=== PATIENT | male | born 1970 | race Caucasian/White ===

== ENCOUNTER 2017-04-19 13:56 | Inpatient (IN) | payer OTHER ==
[~2017-04-19] VITALS: Ht 170.2 cm; Wt 104.0 kg
--- NOTE | 2017-04-19 15:26 | ED GENERAL ADULT ---
History of Present Illness General Chief Complaint: Upper Respiratory Sx/Fever Stated Complaint: COUGH WITH SPUTUM X3 WEEKS Source: patient Exam Limitations: no limitations Vital Signs & Intake/Output Vital Signs & Intake/Output Vital Signs Date Time Temp Pulse Resp B/P B/P Pulse O2 O2 Flow FiO2 Mean Ox Delivery Rate 04/19 1750 97.2 111 32 143/61 99 Room Air 04/19 1653 98.1 113 18 158/79 100 04/19 1543 98 04/19 1419 97.4 104 20 119/72 100 Room Air Room Air Allergies Coded Allergies: Penicillins (Intermediate, FACIAL SWELLING 04/19/17) Reconcile Medications Amlodipine Besylate 10 MG TABLET 1 TAB PO DAILY BP (Reported) Hydrochlorothiazide 25 MG TABLET 1 TAB PO DAILY BP (Reported) Lisinopril 20 MG TABLET 1 TAB PO DAILY BP (Reported) Metformin HCl 1,000 MG TABLET 1 TAB PO BID DM (Reported) Pantoprazole Sodium 40 MG TABLET.DR 1 TAB PO DAILY GI (Reported) Rosuvastatin Calcium (Crestor) 10 MG TABLET 1 TAB PO DAILY CHOLESTEROL ( Reported) Triage Note: PT TO ED S/P "HAD STOMACH BUG ALL WEEK, NOT EATING OR DRINKING, FEELS LIGHTHEADED, SOB". Triage Nurses Notes Reviewed? yes Onset: Abrupt Duration: week(s): (3), constant, continues in ED Timing: recent history Injury Environment: home No Modifying Factors: none HPI: 46-year-old male comes into emergency room for further evaluation of cough with yellow mucous and blood tinge mucous production. Patient has been coughing for 3 weeks. Getting progressively worse. Patient has been feeling lightheaded and dizzy and had a near-syncopal spell the other day. Denies any complete loss of consciousness. No chest pain. Some associated shortness of breath. No vomiting. Patient was started on lisinopril couple weeks ago but the symptoms going on prior to that. Patient saw his primary care doctor. He had an EKG done which showed that he had an irregular beat and was referred to a honing machine set up operator to follow-up. He also is due to see a windmill mechanic at the end of this month coming up. Denies any other associated symptoms. Denies any pain. (JEAN-CLAUDE LOW) Past History Travel History Traveled to [place] past 21 day No Medical History Any Pertinent Medical History? see below for history Neurological: NONE EENT: NONE Cardiovascular: hypertension, hyperlipidemia Respiratory: NONE Gastrointestinal: NONE Hepatic: NONE Renal: NONE Musculoskeletal: NONE Psychiatric: insomnia Endocrine: diabetes Blood Disorders: anemia Cancer(s): NONE NUTRITION SERVICES ASSISTANT/Reproductive: NONE Surgical History Surgical History: non-contributory Psychosocial History Tobacco Use: Never used ETOH Use: heavy use Illicit Drug Use: denies illicit drug use Family History Hx Contributory? No (JEAN-CLAUDE LOW) Review of Systems Review of Systems Constitutional: Reports: no symptoms. EENTM: Reports: no symptoms. Respiratory: Reports: see HPI. Cardiovascular: Reports: see HPI. GI: Reports: no symptoms. Genitourinary: Reports: no symptoms. Musculoskeletal: Reports: no symptoms. Skin: Reports: no symptoms. Neurological/Psychological: Reports: no symptoms. Hematologic/Endocrine: Reports: see HPI. Immunologic/Allergic: Reports: no symptoms. All Other Systems: Reviewed and Negative (JEAN-CLAUDE LOW) Physical Exam Physical Exam General Appearance: well developed/nourished, alert, awake, coughing Head: atraumatic Eyes: Bilateral: normal appearance. Ears, Nose, Throat: normal ENT inspection, hearing grossly normal Neck: normal inspection Respiratory: normal breath sounds, no respiratory distress Cardiovascular: regular rate/rhythm Back: normal range of motion Extremities: normal capillary refill, normal range of motion, no edema Neurologic/Psych: awake, alert, oriented x 3, normal gait Skin: intact, normal color Core Measures ACS in differential dx? No CVA/TIA Diagnosis: No Severe Sepsis Present: No Septic Shock Present: No (JEAN-CLAUDE LOW) Progress Differential Diagnoses I considered the following diagnoses in my evaluation of the patient: RHONDA inhibitor induced cough, bronchitis, pneumonia, pulmonary embolism, COPD, WI, sepsis, medication induced renal failure, obstructive uropathy, Plan of Care: Orders Procedure Date/time Status LACTIC ACID 04/19 1956 Active Irving, Insertion/Removal/Asses 04/19 1744 Active CULTURE,URINE 04/19 1739 Active URINALYSIS 04/19 1739 Complete Add-on Test (ER Only) 04/19 1717 Active Patient Data 04/19 1713 Active LACTIC ACID 04/19 1656 Complete Add-on Test (ER Only) 04/19 1642 Active BLOOD CULTURE 04/19 1642 Active Admit to inpatient 04/19 1638 Active ARTERIAL BLOOD GAS (GEN) 04/19 1632 Active Telemetry/Water Jet Loom Fixer 04/19 1631 Active PHOSPHORUS 04/19 1540 Complete CREATINE PHOSPHOKINASE 04/19 1540 Complete TROPONIN LEVEL 04/19 1526 Complete D-DIMER 04/19 1526 Complete COMPREHENSIVE METABOLIC PANEL 04/19 1526 Complete CBC WITHOUT DIFFERENTIAL 04/19 1526 Complete EKG 04/19 1526 Active Laboratory Tests 04/19/17 1740: Urine Color YEL, Urine Clarity HAZY H, Urine pH 6.0, Ur Specific [place]hel 1.020, Urine Protein >=300 H, Urine Ketones NEG, Urine Nitrite NEG, Urine Bilirubin NEG, Urine Urobilinogen 0.2, Ur Leukocyte Esterase NEG, Ur Microscopic SEDIMENT EXAMINED, Urine RBC 3-5, Urine WBC 3-5 H, Ur Epithelial Cells RENAL H, Granular Casts MANY H, Urine Hemoglobin LARGE H, Urine Glucose 100 H 04/19/17 1655: Lactic Acid 7.8 H 04/19/17 1640: pH 7.29 *L, pCO2 14 L, pO2 131 H, HCO3 7 L, ABG O2 Sat (Measured) 97.0, P-50 (Temp Corrected) N, Carboxyhemoglobin 0.4 L, O2 Concentration % R/A, Temperature 97.4, Phlebotomy Draw Site RIGHT RADIAL 04/19/17 1540: Anion Gap 34 H, Estimated GFR 4 L, BUN/Creatinine Ratio 6.1 L, Glucose 133 H , Calcium 6.7 L, Phosphorus 10.8 H, Total Bilirubin 1.3, AST 40, ALT 31, Alkaline Phosphatase 75, Creatine Kinase 590 H, Troponin I 0.10, Total Protein 7.6, Albumin 4.7, Globulin 2.9, Albumin/Globulin Ratio 1.6, D-Dimer High Sensitivty 223, CBC w Diff NO MAN DIFF REQ, RBC 4.86, MCV 68.3 L, MCH 22.0 L, RDW 14.5, MPV 7.4, Gran % 88.3 H, Lymphocytes % 6.0 L, Monocytes % 5.4, Eosinophils % 0.1, Basophils % 0.2, Absolute Granulocytes 14.0 H, Absolute Lymphocytes 0.9 L, Absolute Monocytes 0.8 H, Absolute Eosinophils 0, Absolute Basophils 0, PUBS MCHC 32.2 L Microbiology 04/19 174 URINE ROUT: Urine Culture - RECD 04/19 164 BLOOD: Blood Culture - RECD 04/19 164 BLOOD: Blood Culture - ORD Diagnostic Imaging: Viewed by Me: Radiology Read. Discussed w/RAD: Radiology Read. Radiology Impression: PATIENT: TITA SWEENEY PRESENT AGE: 46 PATIENT ACCOUNT NO: [id number] : 71 LOCATION: [facility] ORDERING PHYSICIAN: JEAN-CLAUDE MARTINEZ SERVICE DATE: 04/19/17 EXAM TYPE: RAD - XRY-CHEST XRAY, PA AND LATERAL EXAMINATION: XR CHEST CLINICAL INFORMATION: Cough , shortness of breath. COMPARISON: None TECHNIQUE: PA and lateral views (3 images) of the chest are obtained. FINDINGS: No significant abnormality is noted involving the heart, lungs, mediastinum, bony thorax or soft tissues. IMPRESSION : No acute cardiopulmonary process. DICTATED BY: JAMES HERNADEZ MD DATE/TIME DICTATED:04/19/171544 KEYSEATER OPERATOR:BRITTANI DATE/TIME TRANSCRIBED:1544 CONFIDENTIAL, DO NOT COPY WITHOUT APPROPRIATE AUTHORIZATION. < Electronically signed in Other Vendor System> SIGNED BY: JAMES HERNADEZ MD 04/19/17 1550 Initial ED EKG: normal intervals, normal p-waves, normal sinus rhythm, rate (104 ), nonspecific ST T wave chg Prior EKG: unchanged (JEAN-CLAUDE LOW) Departure Departure Disposition: STILL A PATIENT Condition: Stable Clinical Impression Primary Impression: Hyponatremia Secondary Impressions: Acute renal failure, Hyperkalemia Referrals: [facility] (PCP/Family) Departure Forms: Customer Survey General Discharge Information Admission Note Spoke With: DARBY VAIL MD Documentation of Exam: Documentation of any treatments & extenuating circumstances including Concerns Regarding Discharge (functional status, medication knowledge or non-compliance, living conditions, etc.) that warrant an admission rather than observation: Patient will require cardiac telemetry. IV fluids. Repeat blood work. Critical care. Renal consultation. High risk. Slow correction of sodium to avoid seizure. (JEAN-CLAUDE LOW) PA/TRAFFIC CHECKER Co-Sign Statement Statement: ED Attending supervision documentation- x I saw and evaluated the patient. I have also reviewed all the pertinent lab results and diagnostic results. I agree with the findings and the plan of care as documented in the PA's/TRAFFIC CHECKER's documentation. [] I have reviewed the ED Record and agree with the PA's/TRAFFIC CHECKER's documentation. [] Additions or exceptions (if any) to the PAs/TRAFFIC CHECKER's note and plan are summarized below: [] (AL LORENZANA,RK) Critical Care Note Critical Care Note Critical Care Time: 30-74 min (45) (SUNITA MARTINEZ,JEAN-CLAUDE)
[2017-04-19] MEDS ORDERED: METFORMIN HCL1000 M1 PO (15:42)
[2017-04-19] MEDS ORDERED: LISINOPRIL20 M1 PO (15:43)
[2017-04-19] MEDS ORDERED: HYDROCHLOROTHIA25 M1 PO (15:43)
[2017-04-19] MEDS ORDERED: CRESTOR10 M1 PO (15:43)
[2017-04-19] MEDS ORDERED: PANTOPRAZOLE SO40 M1 PO (15:43)
[2017-04-19] MEDS ORDERED: AMLODIPINE BESY10 M1 PO (15:43)
--- NOTE | 2017-04-19 15:50 | RADIOLOGY REPORT ---
EXAMINATION: XR CHEST CLINICAL INFORMATION: Cough, shortness of breath. COMPARISON: None TECHNIQUE: PA and lateral views (3 images) of the chest are obtained. FINDINGS: No significant abnormality is noted involving the heart, lungs, mediastinum, bony thorax or soft tissues. IMPRESSION: No acute cardiopulmonary process.
[2017-04-19 15:53] LABS: ABSOLUTE BASOPHIL COUNT 0 /CUMM (0.0-0.2); ABSOLUTE EOSINOPHIL COUNT 0 /CUMM (0.0-0.7); ABSOLUTE LYMPH COUNT 0.9 /CUMM (1.2-3.4); ABSOLUTE MONOCYTE COUNT 0.8 /CUMM (0.10-0.60); BASOPHIL % 0.2 % (0.0-2.0); EOSINOPHIL % 0.1 % (0-5); HEMATOCRIT 33.2 % (42-52); MEAN CORPUSCULAR HGB CONC 32.2 G/DL (33.0-37.0); MEAN CORPUSCULAR VOLUME 68.3 FL (80.0-94.0); MEAN PLATELET VOLUME 7.4 FL (7.4-10.4); PLATELET COUNT 255 /CUMM (130-400); RBC DISTRIBUTION WIDTH 14.5 % (11.5-14.5); RED BLOOD CELL CT 4.86 /CUMM (4.70-6.10); WHITE BLOOD CELL COUNT 15.8 /CUMM (4.8-10.8)
[2017-04-19 16:26] LABS: GRANULOCYTE % 88.3 % (42.2-75.2)
--- NOTE | 2017-04-19 18:17 | CT SCAN REPORT ---
EXAMINATION: CT ABDOMEN AND PELVIS WITHOUT CONTRAST CLINICAL INFORMATION: Acute renal failure. Evaluate for obstructive uropathy. COMPARISON: None TECHNIQUE: Multidetector volumetric imaging was performed from the superior aspect of the liver through the pubic symphysis. Sagittal and coronal reformatted images were obtained on the technologist's workstation. DLP: 1012.32 mGy-cm FINDINGS: LUNG BASES: The lung bases are clear. There are coronary artery calcifications noted. LIVER, GALLBLADDER, AND BILIARY TREE: The liver is normal in size, shape, and attenuation. No focal hepatic lesion or biliary ductal dilatation is present. The gallbladder is minimally distended and is unremarkable. PANCREAS: Unremarkable. SPLEEN: Unremarkable. ADRENAL GLANDS: Unremarkable. KIDNEYS AND URETERS: There is mild bilateral perinephric stranding. The kidneys are otherwise unremarkable. There is no hydronephrosis. There are no renal or ureteral calculi. BLADDER: The bladder is decompressed by Irving catheter. GASTROINTESTINAL TRACT: The small and large bowel are unremarkable. The appendix is unremarkable. ABDOMINAL WALL: No significant hernia is appreciated. LYMPH NODES: Normal. VASCULAR: There are scattered atherosclerotic calcifications. No aneurysm is identified. PELVIC VISCERA: Unremarkable. OSSEOUS STRUCTURES: Unremarkable. IMPRESSION: 1. No evidence of obstructive uropathy. 2. Otherwise, no acute abnormalities in the abdomen or pelvis.
--- NOTE | 2017-04-19 18:27 | History & Physical ---
ABDI LEON MD 04/19/17 1827: General Information and HPI History of Present Illness: 46 year old man with past medical history of hypertension, hyperlipidemia, non- insulin dependent diabetes mellitus, and EtOH abuse/dependence seen for evaluation of a productive cough for the past three weeks. Patient reports that for the past 8-9 months he has had intermittent yellow sputum production with occasional cough for unclear reasons. Patient was on Lisinopril for hypertension "a couple weeks ago" for which he cough has become more frequent. He reports vague symptoms of loss of appetite with decreased oral intake, lightheadedness/dizziness, heart palpitations, shortness of breath, and 10+ episodes of loose nonbloody, watery diarrhea daily since this past tuesday. Otherwise he denies any fever, chills, headache, chest pain, vomiting. Patient reports a history of alcohol abuse for which he was previously admitted to [facility] and treated with ativan without requiring ICU admission, ativan drip, or intubation. He reports drinking 6-7 vodka mixed drinks daily or a similar number of beers. His last drink was reported the tuesday prior to admission. He denies smoking or recreational/intravenous drug use. 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 Allergies/Medications Allergies: Coded Allergies: Penicillins (Intermediate, FACIAL SWELLING 04/19/17) Home Med list Amlodipine Besylate 10 MG TABLET 1 TAB PO DAILY BP (Reported) Hydrochlorothiazide 25 MG TABLET 1 TAB PO DAILY BP (Reported) Lisinopril 20 MG TABLET 1 TAB PO DAILY BP (Reported) Metformin HCl 1,000 MG TABLET 1 TAB PO BID DM (Reported) Pantoprazole Sodium 40 MG TABLET.DR 1 TAB PO DAILY GI (Reported) Rosuvastatin Calcium (Crestor) 10 MG TABLET 1 TAB PO DAILY CHOLESTEROL ( Reported) Past History Travel History Traveled to [place] past 21 day No Medical History Neurological: NONE EENT: NONE Cardiovascular: hypertension, hyperlipidemia Respiratory: NONE Gastrointestinal: NONE Hepatic: NONE Renal: NONE Musculoskeletal: NONE Psychiatric: insomnia Endocrine: diabetes Blood Disorders: anemia Cancer(s): NONE ON SITE SERVICES SPECIALIST/Reproductive: NONE Surgical History Surgical History: non-contributory Past Family/Social History Psychosocial History Where do you live? Home Who Do You Live With? parent Services at Home: None Primary Language: Tamazight Smoking Status: Former Smoker ETOH Use: heavy use Illicit Drug Use: denies illicit drug use Review of Systems Review of Systems Constitutional: Reports: see HPI. Exam & Diagnostic Data Last 24 Hrs of Vital Signs/I&O Vital Signs Date Time Temp Pulse Resp B/P B/P Pulse O2 O2 Flow FiO2 Mean Ox Delivery Rate 04/19 1940 97.2 103 26 142/62 04/19 1925 107 26 142/62 100 Room Air 04/19 1839 97.2 110 24 131/61 04/19 1839 110 20 131/61 100 Room Air 04/19 1750 97.2 111 32 143/61 99 Room Air 04/19 1653 98.1 113 18 158/79 100 04/19 1543 98 04/19 1419 97.4 104 20 119/72 100 Room Air Room Air Intake & Output 04/19 1600 04/19 0800 04/19 0000 Intake Total Output Total Balance Patient 104.326 kg Weight Weight Reported by Patient Measurement Method Physical Exam General Appearance Alert, Oriented X3, Cooperative, No Acute Distress Skin No Rashes, No Breakdown, No Significant Lesion Skin Temp/Moisture Exam: Warm/Dry Sepsis Skin Exam (color): Normal for Ethnicity HEENT Atraumatic, EOMI, Mucous Membr. moist/pink Neck Supple, No JVD Cardiovascular Regular Rate, Normal S1, Normal S2, No Murmurs Lungs Clear to Auscultation, Normal Air Movement Abdomen Normal Bowel Sounds, Soft, No Tenderness, No Hepatospenomegaly, No Masses, Obese, mildly distended Neurological Normal Speech, Normal Tone, Cranial Nerves 3-12 NL Extremities No Clubbing, No Cyanosis, Normal Pulses, Trace pedal edema Vascular Normal Pulses, Pulses Symmetrical Last 24 Hrs of Labs/Ozzie: Laboratory Tests 04/19/17 1740: Urine Color YEL, Urine Clarity HAZY H, Urine pH 6.0, Ur Specific [place] 1.020, Urine Protein >=300 H, Urine Ketones NEG, Urine Nitrite NEG, Urine Bilirubin NEG, Urine Urobilinogen 0.2, Ur Leukocyte Esterase NEG, Ur Microscopic SEDIMENT EXAMINED, Urine RBC 3-5, Urine WBC 3-5 H, Ur Epithelial Cells RENAL H, Granular Casts MANY H, Urine Hemoglobin LARGE H, Urine Glucose 100 H 04/19/17 1655: Lactic Acid 7.8 H 04/19/17 1640: pH 7.29 *L, pCO2 14 L, pO2 131 H, HCO3 7 L, ABG O2 Sat (Measured) 97.0, P-50 (Temp Corrected) N, Carboxyhemoglobin 0.4 L, O2 Concentration % R/A, Temperature 97.4, Phlebotomy Draw Site RIGHT RADIAL 04/19/17 1540: Anion Gap 34 H, Estimated GFR 4 L, BUN/Creatinine Ratio 6.1 L, Glucose 133 H , Calcium 6.7 L, Phosphorus 10.8 H, Total Bilirubin 1.3, AST 40, ALT 31, Alkaline Phosphatase 75, Creatine Kinase 590 H, Troponin I 0.10, Total Protein 7.6, Albumin 4.7, Globulin 2.9, Albumin/Globulin Ratio 1.6, D-Dimer High Sensitivty 223, CBC w Diff NO MAN DIFF REQ, RBC 4.86, MCV 68.3 L, MCH 22.0 L, RDW 14.5, MPV 7.4, Gran % 88.3 H, Lymphocytes % 6.0 L, Monocytes % 5.4, Eosinophils % 0.1, Basophils % 0.2, Absolute Granulocytes 14.0 H, Absolute Lymphocytes 0.9 L, Absolute Monocytes 0.8 H, Absolute Eosinophils 0, Absolute Basophils 0, PUBS MCHC 32.2 L Microbiology 04/19 174 URINE ROUT: Urine Culture - RECD 04/19 1644 BLOOD: Blood Culture - RECD 04/19 1642 BLOOD: Blood Culture - ORD Diagnostic Data EKG Results Sinus Tachycardia HR 104 GA 144 QTc 448 TWave investion inferior leads, V3-V6 ST-segment depression V3-V5 CXR Results IMPRESSION: No acute cardiopulmonary process. Other Results SERVICE DATE: 04/19/17-1643 EXAM TYPE: CAT - CT ABD & PELVIS W/O IV CONTRAS IMPRESSION: 1. No evidence of obstructive uropathy. 2. Otherwise, no acute abnormalities in the abdomen or pelvis. Assessment/Plan Assessment: 46 year old man with multiple medical problems significant for EtOH abuse and Hypertension recently started on lisinopril seen for evaluation of productive cough. #Acute Kidney Injury #Anion gap metabolic acidosis #SIRS #Hyponatremia #Hyperkalemia #Hyperphosphatemia #Elevated Lactic Acid #Hypertension Patient with cough, sputum production and new lightheadedness/dizziness, shortness of breath, palpitations, and nausea with decreased oral intake since prior to admission. Vital signs upon initial evaluation were significant tachycardia. Physical examination remarkable for an obese middle aged man appearing mildly tremoulous with an otherwise normal cardio/ pulmonary/abdomenal/neuro exam. Significant labs were Na 116, K 5.5, Cl 73, HCO3 9, BUN/Cr 83/13.6, Glu 133, AG 34, WBC 15.8, Hgb/Hct 10.7/33.2, Plt 255, Lactic acid 7.8, Ca/Albumin 6.7/4.7, PO 10.8, LFTs WNL, ABG: pH 7.29, CO2 14, O2 131, HCO3 7. CXR and CT A/P were within normal limits, EKG demonstrated sinus tachycardia with T-wave inversions in inferior/precordial leads and ST-segement depression of distal precordial leads. Patient clinincally seems to have acute renal failure and its associated metabolic sequelae secondary to lisinopril and decreased oral intake resulting in prerenal azotemia. Patient is admitted to the ICU for further evaluation. Case discussed with industrial aerial installer Dr. Hale, whom felt that patient did not require any urgent hemodialysis or placement of a dialysis catheter. -ICU -Irving Catheter -Strict I&Os -Trend lactic acid until normal -Trend troponin/EKG until peak or three negative seits -Hold Lisinopril, HCTZ -Continue amlodipine -Nephrology consult #EtOH Abuse/Dependence Patient with history of previous hospitalization for EtOH related disease in [place] reportedly not requiring an ativan drip, intubation, or ICU admission. -CIWA -Ativan per CIWA -Ativan 2mg PO Q6H -Multivitamin/Thiamine/Folate -SW/Nutrition consults -Obtain records from [facility] for baseline labs #Hyperlipidemia-Crestor 10mg PO Daily HELD #Non-insulin dependent diabetes mellitus -Accuchecks with Novolog SSI TIDAC/HS -Hold oral hypoglycemics Pain Plan-Acetaminophen/Percocet/Morphine Diet-Diabetic diet with 2g K & 1g Phos restriction DVT PPx-ALPS/subcutaneous heparin Code Status-FULL CODE As Ranked By This Provider Problem List: 1. Acute renal failure 2. Hyperkalemia 3. Hyponatremia Core Measures/Miscellaneous Acute Coronary Syndrome ACS Diagnosis: No Cerebrovascular Accident CVA/TIA Diagnosis: No Congestive Heart Failure CHF Diagnosis: No VTE (View Protocol) VTE Risk Factors: Acute medical illness, Age > 40 No [facility] VTE prophylaxis d/t: No contraindications No VTE Pharm Prophylaxis d/t: No contraindications VTE Diagnosis: No VTE Type: NONE VTE Confirmed by (Test): NONE Sepsis (View Protocol) Severe Sepsis Present: No Septic Shock Septic Shock Present: No Miscellaneous Documentation Attending Case Discussed With: DARBY VAIL MD Primary Care Physician: RAFIQ PARKER Patient sees these Specialists Dr. Andrade Level of Patient Care: Critical Care (CRI) Consults Needed: Consulting Specialty: Nephrology DARBY VAIL MD 04/19/17 2155: Attending MD Review Statement Attending Statement Attending Statement: examined this patient, discuss w/resident/PA/FISHERIES MANAGEMENT BIOLOGIST, agreed w/resident/PA/FISHERIES MANAGEMENT BIOLOGIST, discussed with family, reviewed EMR data (avail), reviewed images, amended to note Attending Assessment/Plan: The patient is a 46 yo male with h/o HTN, HL, DM2 and EtOH abuse who presented the ED with c/of a cough productive of yellowish sputum and some blood x several months that has been worse over last several weeks. He previously resided in [place] and had been admitted to [facility] several weeks ago. He describes being given a lot of Ativan and sedation and was not clear why. 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 States he has drank less since discharge. He has moved in with his mother in [place] and 2 weeks ago saw Whitney Parker APRN at [facility]. Upon discharge from [facility] he had been placed on Amlodipine and restarted on Metformin (he previously took and had stopped due to lack of insurance). Ms. Parker began him on Lisinopril & HCTZ. She had also referred him to GI (Dr. Andrade group) to evaluate for reflux symptoms and some blood in sputum. Also sending to see a highway maintainer due to "irregular" heart on EKG. He also described diarrhea over last 2 weeks with 10+ episodes each day along with decreased appetite. He denied any fever, chest pain, dyspnea, chills, abdominal pain, dysuria, blood per rectum. In the ED was found to be severely hyponatremic with SOHAIL and + lactate. Physical Exam: VS: T 97.4, P 104, R 20, BP 119/72, PO 100% RA HEENT: eyes- PERRLA, EOMI joseph- moist mucosa (post 2 L NS in ED) Neck: no JVD or adenopathy Chest: clear Cor: tachy, reg, nl S1, S2 w/o murm Abd: BS+, soft, distended, ?liver edge sl firm, +/- spleen Ext: tr edema,pulses 2+ Neuro: alert & oriented x 3, non-focal Labs/Tests- as above Impression/Plan: #Hyponatremia- patient presents with Na 116. Is mentating w/o confusion (as per his mother). Has h/o significant EtOH intake, poor po intake of food, has been on diuretic (HCTZ) and had recent diarrhea (resolved per patient). Most likely multifactorial. Plan: Admit to ICU. Repeat BEP in 4 hours (he received 2 L NS in ED) - follow Na level closely Check urine lytes Nephrology consult #SOHAIL- patient presents with BUN/Cr 83/13.6. Denies h/o being told he had renal dysfunction at time of recent hospital stay in [place]. May be related to multiple factors- volume depletion secondary to diuretic/diarrhea/poor po intake along with beginning Lisinopril 2 weeks ago. No h/o known vascular disease to suggest DIANA, although c/o lightheadedness when begun on Lisinopril. Does have elevated CK- ? resolving rhabdomyolysis. Plan: Nephrology consult as above. Follow-up BEP post hydration. Follow-up CK. Non-contrast CT abd/pel (done- no evidence of obstruction). Irving for I/O's. #Hyperkalemia- mild with K 5.5. C/W renal failure. Plan: Renal diet and follow. Stop RHONDA inhibitor. #Lactic Acidosis- No clinical evidence of sepsis. ? on Metformin. Plan: Hold Metformin. Follow-up lactate level with hydration. #Abnormal EKG- with T changes. Was being referred to Cardiology by OP clinician. No chest pain or dyspnea noted. Plan: Will follow-up EKG. Obtain ECHO in morning. #Anemia- was told about this last hospital stay and informed he may have Thalassemia. May also be contribution from renal failure. Plan: Obtain recent records from [facility]. #Leukocytosis with Left Shift- no clinical focal infection. Plan: Check cultures & follow up WBC. #DM2- has been on Metformin which may contribute to acidosis. Plan: Check glucoscans and use insulin sliding scale. Hold Metformin. #Elevated CK- does not give h/o recent lying on floor, however may represent rhabdomyolysis. Plan: Follow-up CK with hydration. #EtOH Dependence/Abuse- recent detox at [facility] describing "5 days of getting Ativan and being sedated". Does not appear to have great incite into his condition. Plan: Ativan/CIWA protocol- thiamine, MVI, folate as per protocol. Social Service consult. Watch for DT's. Records from [facility]. #HTN- as above, was recently started on Amlodipine at [facility] and Lisinopril/HCTZ was added 2 weeks ago by Ms. Parker. Plan: Hold HCTZ & Lisinopril. Continue Amlodipine.
[2017-04-19 18:39] VITALS: BP 131/61
[2017-04-19 19:40] VITALS: BP 142/62
[2017-04-19 20:30] VITALS: BP 153/68
[2017-04-19 20:55] LABS: ABSOLUTE BASOPHIL COUNT 0.1 /CUMM (0.0-0.2); ABSOLUTE EOSINOPHIL COUNT 0 /CUMM (0.0-0.7); ABSOLUTE GRANULOCYTE CT 13.4 /CUMM (1.4-6.5); ABSOLUTE LYMPH COUNT 0.9 /CUMM (1.2-3.4); ABSOLUTE MONOCYTE COUNT 0.6 /CUMM (0.10-0.60); BASOPHIL % 0.4 % (0.0-2.0); EOSINOPHIL % 0.1 % (0-5); HEMATOCRIT 29.3 % (42-52); MEAN CORPUSCULAR HGB 22.2 PG (27.0-31.0); MEAN CORPUSCULAR HGB CONC 32.6 G/DL (33.0-37.0); MEAN CORPUSCULAR VOLUME 68.3 FL (80.0-94.0); MEAN PLATELET VOLUME 7.1 FL (7.4-10.4); PLATELET COUNT 212 /CUMM (130-400); RBC DISTRIBUTION WIDTH 15.3 % (11.5-14.5); RED BLOOD CELL CT 4.29 /CUMM (4.70-6.10); WHITE BLOOD CELL COUNT 14.9 /CUMM (4.8-10.8)
[2017-04-19 21:21] LABS: GRANULOCYTE % 89.6 % (42.2-75.2)
--- NOTE | 2017-04-19 21:54 | Admission Certification ---
Admission Certification Certification Statement - As attending physician, I certify that at the time of - admission, based on clinical presentation, severity of - symptoms, need for further diagnostic testing and - therapeutic interventions, and risk of adverse outcomes - without in-hospital treatment, in my clinical assessment, - this patient requires an acute hospital stay for a minimum - of two nights or longer. I have also considered psychsocial - factors such as support system, advanced age, financial - issues, cognitive issues, and failed out-patient treatments, - past re-admission history, safety of patient, and lack of - compliance as applicable. Specific rationale supporting this admission is: The patient presents in the ED with severe hyponatremia, SOHAIL, abnormal EKG, elevated CK, and h/o EtOH abuse. Needs ICU monitoring, IV fluids, nephrology consult, close monitoring of sodium, CIWA/Ativan detox protocol. ECHO cardiogram and possible cardiology consult.
[2017-04-19 22:00] VITALS: BP 122/78
[2017-04-20] VITALS (7 sets, daily range): BP systolic 132–160; BP diastolic 60–85
[2017-04-20 05:07] LABS: ABSOLUTE BASOPHIL COUNT 0 /CUMM (0.0-0.2); ABSOLUTE EOSINOPHIL COUNT 0 /CUMM (0.0-0.7); ABSOLUTE GRANULOCYTE CT 11.4 /CUMM (1.4-6.5); ABSOLUTE LYMPH COUNT 0.9 /CUMM (1.2-3.4); ABSOLUTE MONOCYTE COUNT 0.9 /CUMM (0.10-0.60); BASOPHIL % 0.1 % (0.0-2.0); EOSINOPHIL % 0 % (0-5); GRANULOCYTE % 86.2 % (42.2-75.2); HEMATOCRIT 27.9 % (42-52); MEAN CORPUSCULAR HGB 22.2 PG (27.0-31.0); MEAN CORPUSCULAR VOLUME 69.4 FL (80.0-94.0); MEAN PLATELET VOLUME 7.3 FL (7.4-10.4); PLATELET COUNT 164 /CUMM (130-400); RBC DISTRIBUTION WIDTH 14.2 % (11.5-14.5); RED BLOOD CELL CT 4.02 /CUMM (4.70-6.10); WHITE BLOOD CELL COUNT 13.2 /CUMM (4.8-10.8)
--- NOTE | 2017-04-20 09:07 | Cons- Nephrology ---
General Information and HPI Consulting Request Date of Consult: 04/20/17 Requested By: DARBY VAIL MD Reason for Consult: Severe renal failure & mult electrolyte disorders Source of Information: patient, family, old records Exam Limitations: no limitations History of Present Illness: 46 yr old WM w mult med problems including DM, HTN, EtOH abuse admit last night w several wks of increasing anorexia, vomiting, diarrhea & more recent hiccups. No baseline renal function for review & poor medical f/u but recently told kidney function abnormal. Found to have profound renal failure w BUN/Cr 84/13.7 w associated hyperkalemia, met acidosis, hyponatremia, hpocalcemia, hypomagnesemia, & hyperphosphatemia. Outpt med included ACEI, thiazide diuretic, & metformin. Denies NSAIDs or recent IV contrast. No documented hypotension. Has noted decreasing urine output over last several days & oliguric in hospital despite IV saline. Allergies/Medications Allergies: Coded Allergies: Penicillins (Intermediate, FACIAL SWELLING 04/19/17) Home Med List: Amlodipine Besylate 10 MG TABLET 1 TAB PO DAILY BP (Reported) Hydrochlorothiazide 25 MG TABLET 1 TAB PO DAILY BP (Reported) Lisinopril 20 MG TABLET 1 TAB PO DAILY BP (Reported) Metformin HCl 1,000 MG TABLET 1 TAB PO BID DM (Reported) Pantoprazole Sodium 40 MG TABLET.DR 1 TAB PO DAILY GI (Reported) Rosuvastatin Calcium (Crestor) 10 MG TABLET 1 TAB PO DAILY CHOLESTEROL ( Reported) Current Medications: Current Medications Sig/Edward Start time Last Medication Dose Route Stop Time Status Admin Acetaminophen 650 MG Q6P PRN 04/19 1915 AC PO Albuterol Sulfate 3 ML ONCE ONE 04/19 1530 DC 04/19 INH 04/19 1531 1543 Amlodipine Besylate 10 MG DAILY 04/20 1000 AC PO Calcium Gluconate 1 GM ONCE ONE 04/20 0230 DC 04/20 Sodium Chloride 100 ML IV 04/20 0329 0237 Calcium Gluconate 1 GM ONCE ONE 04/20 0030 DC 04/20 Sodium Chloride 100 ML IV 04/20 0129 0048 Folic Acid 1 MG DAILY 04/20 1000 AC PO Ipratropium [place] 2.5 ML ONCE ONE 04/19 1530 DC 04/19 INH 04/19 1531 1543 Lorazepam 0 .STK-MED ONE 04/19 1840 DC .ROUTE Lorazepam 0 .STK-MED ONE 04/19 1839 DC PO Lorazepam 0 Q1P PRN 04/19 1830 AC 04/19 IV 2225 Lorazepam 2 MG Q6 04/19 1828 AC 04/20 PO 0602 Magnesium Sulfate 1 GM Q2H 04/20 0230 DC 04/20 Dextrose/Water 100 ML IV 04/20 0629 0332 Morphine Sulfate 2 MG Q6P PRN 04/19 191 AC IV Multivitamins 1 TAB DAILY 04/20 1000 AC PO Ondansetron HCl 4 MG Q8P PRN 04/19 1915 AC IV Oxycodone/ 1 TAB Q6P PRN 04/19 191 AC Acetaminophen PO Sodium Chloride 1,000 ML BOLUS ONE 04/19 2130 DC 04/19 IV 04/19 2329 2137 Sodium Chloride 1,000 ML Q10H 04/19 2015 AC 04/20 IV 0602 Sodium Chloride 1,000 ML BOLUS ONE 04/19 1645 DC 04/19 IV 04/19 1744 1722 Sodium Chloride 1,000 ML BOLUS ONE 04/19 1645 DC 04/19 IV 04/19 1744 1635 Sodium Polystyrene 60 ML ONCE ONE 04/19 2245 DC 04/19 Sulfonate PO 04/19 2246 2252 Thiamine HCl 100 MG DAILY 04/20 1000 AC PO Review of Systems Review of Systems Constitutional: Reports: malaise, weakness. EENTM: Reports: no symptoms. Cardiovascular: Reports: chest pain. Respiratory: Reports: cough, short of breath. GI: Reports: diarrhea, vomiting. Genitourinary: Reports: frequency. Musculoskeletal: Reports: no symptoms. Skin: Reports: no symptoms. Neurological/Psychological: Reports: no symptoms. Hematologic/Endocrine: Reports: no symptoms. Immunologic/Allergic: Reports: no symptoms. All Other Systems: Reviewed and Negative Past History Travel History Traveled to [place] past 21 day No Medical History Blood Transfusion Hx: No Neurological: NONE EENT: NONE Cardiovascular: hypertension, hyperlipidemia Respiratory: NONE Gastrointestinal: NONE Hepatic: NONE Renal: NONE Musculoskeletal: NONE Psychiatric: NONE Endocrine: diabetes Blood Disorders: anemia Cancer(s): NONE BLUING OVEN TENDER/Reproductive: NONE Surgical History Surgical History: non-contributory Family History Relations & Conditions If Any: Relation not specified for: FH: diabetes mellitus FH: hypertension Psychosocial History Where Do You Live? Home Who Do You Live With? parent Services at Home: None Primary Language: Croatian Smoking Status: Former Smoker ETOH Use: heavy use Illicit Drug Use: denies illicit drug use Exam & Diagnostic Data Vital Signs and I&O Vital Signs Date Time Temp Pulse Resp B/P B/P Pulse O2 O2 Flow FiO2 Mean Ox Delivery Rate 04/20 0600 99.0 106 28 148/65 04/20 0400 98.9 107 31 134/68 04/20 0400 94 Room Air 04/20 0000 98.6 102 29 132/60 07 0000 97 Room Air 04/20 0000 98.6 102 29 132/60 97 Room Air 04/19 2200 97.8 105 22 122/78 04/19 2123 96.9 104 26 125/59 98 Room Air 04/19 2030 96.7 104 34 153/68 04/19 2030 96.7 104 34 153/68 97 Room Air 04/19 1940 97.2 103 26 142/62 04/19 1925 107 26 142/62 100 Room Air 04/19 1839 97.2 110 24 131/61 04/19 1839 110 20 131/61 100 Room Air 04/19 1750 97.2 111 32 143/61 99 Room Air 04/19 1653 98.1 113 18 158/79 100 04/19 1543 98 04/19 1419 97.4 104 20 119/72 100 Room Air Room Air Intake & Output 04/20 1600 04/20 0400 04/19 1600 04/19 0400 04/18 1600 04/18 0400 Intake Total 1327 600 Output Total 265 35 Balance 1062 565 Intake, IV 967 600 Intake, Oral 360 Number 4 1 Bowel Movements Output, Stool 250 Output, Urine 15 35 Patient 230 lb 230 lb Weight Weight Reported by Patient Reported by Patient Measurement Method Physical Exam General Appearance: well developed/nourished, anxious Head: atraumatic, normal appearance Eyes: Bilateral: normal appearance. Ears, Nose, Throat: normal ENT inspection Neck: normal inspection Respiratory: normal breath sounds, no respiratory distress, quiet respiration, lungs clear Cardiovascular: regular rate/rhythm, friction rub (none) Gastrointestinal: soft, non-tender, no organomegaly Extremities: no edema Neurologic/Psych: no motor/sensory deficits, awake, alert, abnormal POLICE CHIEF II-XII, no asterixis Skin: intact, normal color, warm/dry Lymphatic: no anterior cervical cecy, no axillary adenopathy Results Pertinent Lab Results: Laboratory Tests 04/20 04/20 04/20 0658 0446 0108 Chemistry Sodium (137 - 145 mmol/L) 118 *L 116 *L Potassium (3.5 - 5.1 mmol/L) 5.4 H 6.2 *H Chloride (98 - 107 mmol/L) 81 L 80 L Carbon Dioxide (22 - 30 mmol/L) 8 *L 8 *L Anion Gap (5 - 16) 29 H 28 H BUN (9 - 20 mg/dL) 83 H 84 H Creatinine (0.7 - 1.2 mg/dL) 13.6 *H 13.7 *H Estimated GFR (>60 ml/min) 4 L 4 L Glucose (65 - 99 mg/dL) 144 H 129 H Lactic Acid (0.7 - 2.1 mmol/L) 3.3 H 4.0 H 5.6 H Calcium (8.4 - 10.2 mg/dL) 5.8 *L 5.4 *L Phosphorus (2.5 - 4.5 mg/dL) 10.7 H 10.9 H Magnesium (1.6 - 2.3 mg/dL) 1.5 L 0.8 *L Total Bilirubin (0.2 - 1.3 mg/dL) 1.0 0.9 AST (17 - 59 U/L) 30 31 ALT (21 - 72 U/L) 30 33 Creatine Kinase (55 - 170 U/L) 559 H Troponin I (<0.11 ng/ml) 0.12 *H Albumin (3.5 - 5.0 g/dL) 3.4 L 3.7 Hematology CBC w Diff MAN DIFF ORDERED WBC (4.8 - 10.8 /CUMM) 13.2 H RBC (4.70 - 6.10 /CUMM) 4.02 L Hgb (14.0 - 18.0 G/DL) 8.9 L Hct (42 - 52 %) 27.9 L MCV (80.0 - 94.0 FL) 69.4 L MCH (27.0 - 31.0 PG) 22.2 L RDW (11.5 - 14.5 %) 14.2 Plt Count (130 - 400 /CUMM) 164 MPV (7.4 - 10.4 FL) 7.3 L Gran % (42.2 - 75.2 %) 86.2 H Lymphocytes % (20.5 - 51.1 %) 7.1 L Monocytes % (1.7 - 9.3 %) 6.6 Eosinophils % (0 - 5 %) 0 Basophils % (0.0 - 2.0 %) 0.1 Absolute Granulocytes (1.4 - 6.5 /CUMM) 11.4 H Segmented Neutrophils (42.2 - 75.2 %) 82 H Absolute Lymphocytes (1.2 - 3.4 /CUMM) 0.9 L Lymphocytes (20.5 - 51.1 %) 14 L Monocytes (1.7 - 9.3 %) 4 Absolute Monocytes (0.10 - 0.60 /CUMM) 0.9 H Absolute Eosinophils (0.0 - 0.7 /CUMM) 0 Absolute Basophils (0.0 - 0.2 /CUMM) 0 Platelet Estimate (ADEQUATE) ADEQUATE Hypochromic-Microcytic 1+ Poikilocytosis 1+ Anisocytosis 2+ Microcytic Cells 2+ Ovalocytes 1+ Elliptocytes FEW PUBS MCHC (33.0 - 37.0 G/DL) 32.0 L Other Body Source Fld Total RBCs Counted (%) 100 04/195 2049 1955 Chemistry Sodium (137 - 145 mmol/L) 115 *L Potassium (3.5 - 5.1 mmol/L) 6.2 *H Plasma Potassium (3.4 - 4.4 MMOL/L) 6.2 *H Chloride (98 - 107 mmol/L) 77 L Carbon Dioxide (22 - 30 mmol/L) 8 *L Anion Gap (5 - 16) 30 H BUN (9 - 20 mg/dL) 84 H Creatinine (0.7 - 1.2 mg/dL) 13.3 *H Estimated GFR (>60 ml/min) 4 L BUN/Creatinine Ratio (7 - 25 %) 6.3 L Lactic Acid (0.7 - 2.1 mmol/L) 7.2 H Cancelled Total Bilirubin (0.2 - 1.3 mg/dL) 1.1 Direct Bilirubin (< 0.4 mg/dL) 0.9 H AST (17 - 59 U/L) 38 ALT (21 - 72 U/L) 31 Alkaline Phosphatase (< 127 U/L) 60 Troponin I (<0.11 ng/ml) 0.11 *H Total Protein (6.3 - 8.2 g/dL) 6.7 Albumin (3.5 - 5.0 g/dL) 4.0 Hematology CBC w Diff NO MAN DIFF REQ WBC (4.8 - 10.8 /CUMM) 14.9 H RBC (4.70 - 6.10 /CUMM) 4.29 L Hgb (14.0 - 18.0 G/DL) 9.6 L Hct (42 - 52 %) 29.3 L MCV (80.0 - 94.0 FL) 68.3 L MCH (27.0 - 31.0 PG) 22.2 L RDW (11.5 - 14.5 %) 15.3 H Plt Count (130 - 400 /CUMM) 212 MPV (7.4 - 10.4 FL) 7.1 L Gran % (42.2 - 75.2 %) 89.6 H Lymphocytes % (20.5 - 51.1 %) 5.9 L Monocytes % (1.7 - 9.3 %) 4.0 Eosinophils % (0 - 5 %) 0.1 Basophils % (0.0 - 2.0 %) 0.4 Absolute Granulocytes (1.4 - 6.5 /CUMM) 13.4 H Absolute Lymphocytes (1.2 - 3.4 /CUMM) 0.9 L Absolute Monocytes (0.10 - 0.60 /CUMM) 0.6 Absolute Eosinophils (0.0 - 0.7 /CUMM) 0 Absolute Basophils (0.0 - 0.2 /CUMM) 0.1 PUBS MCHC (33.0 - 37.0 G/DL) 32.6 L 04/19 04/19 04/19 1740 1740 1655 Chemistry Lactic Acid (0.7 - 2.1 mmol/L) 7.8 H Toxicology Methadone Screen (>300 NG/ML) Pending Barbiturate Screen (>200 NG/ML) Pending Ur Phencyclidine Scrn (>25 NG/ML) Pending Amphetamines Screen (>1000 NG/ML) Pending U Benzodiazepines Scrn (>200 NG/ML) Pending Urine Cocaine Screen (>300 NG/ML) Pending Urine Cannabis Screen (>50 NG/ML) Pending Urines Urine Color (YEL,AMB,STR) YEL Urine Clarity (CLEAR) HAZY H Urine pH (5.0 - 8.0) 6.0 Ur Specific [place] (1.001 - 1.035) 1.020 Urine Protein (NEG,<30 MG/DL) >=300 H Urine Ketones (NEG) NEG Urine Nitrite (NEG) NEG Urine Bilirubin (NEG) NEG Urine Urobilinogen (0.1 - 1.0 EU/dl) 0.2 Ur Leukocyte Esterase (NEG) NEG Ur Microscopic SEDIMENT EXAMINED Urine RBC (0 - 5 /HPF) 3-5 Urine WBC (0 - 2 /HPF) 3-5 H Ur Epithelial Cells (NONE,FEW) RENAL H Granular Casts (NONE /LPF) MANY H Urine Hemoglobin (NEG) LARGE H Ur Random Creatinine (mg/dL) 70.7 Ur Random Sodium (30 - 90 mmol/L) 28 L Ur Random Potassium (mmol/L) 41.1 Fraction Sodium Excret (<1% %) 4.6 H Urine Glucose (N MG/DL) 100 H 04/19 04/19 1640 1540 Blood Gas pH (7.35 - 7.45 PH) 7.29 *L pCO2 (35 - 45 TORR) 14 L pO2 (80 - 100 TORR) 131 H HCO3 (21 - 28 MEQ/L) 7 L ABG O2 Sat (Measured) (>96.0 %) 97.0 P-50 (Temp Corrected) N Carboxyhemoglobin (1.5 - 5.0 %) 0.4 L O2 Concentration % R/A Temperature (97.0 - 100.0 FARH) 97.4 Chemistry Sodium (137 - 145 mmol/L) 116 *L Potassium (3.5 - 5.1 mmol/L) 5.5 H Chloride (98 - 107 mmol/L) 73 L Carbon Dioxide (22 - 30 mmol/L) 9 *L Anion Gap (5 - 16) 34 H BUN (9 - 20 mg/dL) 83 H Creatinine (0.7 - 1.2 mg/dL) 13.6 *H Estimated GFR (>60 ml/min) 4 L BUN/Creatinine Ratio (7 - 25 %) 6.1 L Glucose (65 - 99 mg/dL) 133 H Calcium (8.4 - 10.2 mg/dL) 6.7 L Phosphorus (2.5 - 4.5 mg/dL) 10.8 H Total Bilirubin (0.2 - 1.3 mg/dL) 1.3 AST (17 - 59 U/L) 40 ALT (21 - 72 U/L) 31 Alkaline Phosphatase (< 127 U/L) 75 Creatine Kinase (55 - 170 U/L) 590 H Troponin I (<0.11 ng/ml) 0.10 Total Protein (6.3 - 8.2 g/dL) 7.6 Albumin (3.5 - 5.0 g/dL) 4.7 Globulin (1.9 - 4.2 gm/dL) 2.9 Albumin/Globulin Ratio (1.1 - 2.2 %) 1.6 Coagulation D-Dimer High Sensitivty (0 - 243 ng/ml) 223 Hematology CBC w Diff NO MAN DIFF REQ WBC (4.8 - 10.8 /CUMM) 15.8 H RBC (4.70 - 6.10 /CUMM) 4.86 Hgb (14.0 - 18.0 G/DL) 10.7 L Hct (42 - 52 %) 33.2 L MCV (80.0 - 94.0 FL) 68.3 L MCH (27.0 - 31.0 PG) 22.0 L RDW (11.5 - 14.5 %) 14.5 Plt Count (130 - 400 /CUMM) 255 MPV (7.4 - 10.4 FL) 7.4 Gran % (42.2 - 75.2 %) 88.3 H Lymphocytes % (20.5 - 51.1 %) 6.0 L Monocytes % (1.7 - 9.3 %) 5.4 Eosinophils % (0 - 5 %) 0.1 Basophils % (0.0 - 2.0 %) 0.2 Absolute Granulocytes (1.4 - 6.5 /CUMM) 14.0 H Absolute Lymphocytes (1.2 - 3.4 /CUMM) 0.9 L Absolute Monocytes (0.10 - 0.60 /CUMM) 0.8 H Absolute Eosinophils (0.0 - 0.7 /CUMM) 0 Absolute Basophils (0.0 - 0.2 /CUMM) 0 PUBS MCHC (33.0 - 37.0 G/DL) 32.2 L Miscellaneous Phlebotomy Draw Site RIGHT RADIAL Imaging/Other Studies: CT: LUNG BASES: The lung bases are clear. There are coronary artery calcifications noted. LIVER, GALLBLADDER, AND BILIARY TREE: The liver is normal in size, shape, and attenuation. No focal hepatic lesion or biliary ductal dilatation is present. The gallbladder is minimally distended and is unremarkable. PANCREAS: Unremarkable. SPLEEN: Unremarkable. ADRENAL GLANDS: Unremarkable. KIDNEYS AND URETERS: There is mild bilateral perinephric stranding. The kidneys are otherwise unremarkable. There is no hydronephrosis. There are no renal or ureteral calculi. BLADDER: The bladder is decompressed by [place] catheter. GASTROINTESTINAL TRACT: The small and large bowel are unremarkable. The appendix is unremarkable. ABDOMINAL WALL: No significant hernia is appreciated. LYMPH NODES: Normal. VASCULAR: There are scattered atherosclerotic calcifications. No aneurysm is identified. PELVIC VISCERA: Unremarkable. OSSEOUS STRUCTURES: Unremarkable. IMPRESSION: 1. No evidence of obstructive uropathy. 2. Otherwise, no acute abnormalities in the abdomen or pelvis. CXR: IMPRESSION: No acute cardiopulmonary process. Assessment/Plan Assessment/Recommendations Assessment: 1. Renal Failure: suspect chronic likely due to DM & HTN, but baseline unknown & can't exclude superimposed acute component. To screen for paraprotein & GN --> prerenal unlikely w/o improvement w IV fluids, obstruction already excluded, but can't r/o ATN. Clinically uremic & needs urgent HD. 2. Hyponatremia; severe & likely chronic; due to excess free water intake in face of renal failure. Can not make dx SIADH in current setting. Will need to dialyze against low Na dialysate to avoid rapid correction. 3. ACID BASE: mixed severe met acid & resp alk; met acid hi AG & due to combination renal failure & lactic acidosis --> likely from metformin toxicity. Neg urine ketones speaks against EtOH or diabetic ketoacidosis. 4. Hyperkalemia: will correct w HD. 5. HypoCa: due to HypoMg & renal failure w hyperphos & activated Vit D deficiency; needs additional Mg replacement. 6. HypoMg: due to EtOH abuse & GI losses. Recommendations: 1. stat IR consult nontunneled IJ HD cath 2. HD today --> 2 hrs only against low Na dialysate 3. repeat HD daily next several days 4. repeat IV Mg sulfate 2grams 5. CaCO3 1250 mg po each meal 6. SPEP 7. ANCA, MELODY, C3, C4 8. Hep BSag, Hep C Ab 9. stop IV NS - fluid restrict 800 ml/day total 10. obtain old labs
--- NOTE | 2017-04-20 14:50 | PN- Resident CRCU ---
See Addendum Subjective HPI/CRCU Issues: This morning patient is alert, awake and oriented. He is complaining of chest tightness and feeling of indigestion. He is also having hiccups. Denies nausea , vomiting, abdominal pain. He is not making urine. Mother is at bedside. Objective Vital Signs & I&O Last 8 Hrs of Vitals and I&O: Intake & Output 04/20 1600 Intake Total Output Total Balance Patient 229 lb Weight Temperature 98 Pulse 118-102 Respiratory rate 34-20 Blood pressure 163-122/73-59 Pulse ox 100-98% on room air Exam General Appearance: well developed/nourished, no apparent distress, alert, awake , anxious Respiratory: chest non-tender, lungs clear Cardiovascular: tachycardia Gastrointestinal: firm, distended Extremities: no edema Current Medications: Current Medications Sig/Edward Start time Last Medication Dose Route Stop Time Status Admin Acetaminophen 650 MG Q6P PRN 04/19 1915 AC PO Amlodipine Besylate 10 MG DAILY 04/20 1000 AC 04/20 PO 1533 Calcium Carbonate 1,250 MG WITH MEALS 04/20 1700 AC 04/20 PO 1533 Calcium Gluconate 1 GM ONCE ONE 04/20 0230 DC 04/20 Sodium Chloride 100 ML IV 04/20 0329 0237 Calcium Gluconate 1 GM ONCE ONE 04/20 0030 DC 04/20 Sodium Chloride 100 ML IV 04/20 0129 0048 Folic Acid 1 MG DAILY 04/20 1000 AC 04/20 PO 1532 Heparin Sodium 0 .STK-MED ONE 04/20 1056 DC (Porcine) IV Lidocaine 0 .STK-MED ONE 04/20 1010 DC .ROUTE Lidocaine/Epinephrine 0 .STK-MED ONE 04/20 1010 DC .ROUTE Lorazepam 0 .STK-MED ONE 04/19 1840 DC .ROUTE Lorazepam 0 .STK-MED ONE 04/19 1839 DC PO Lorazepam 0 Q1P PRN 04/19 1830 AC 04/19 IV 2225 Lorazepam 2 MG Q6 04/19 1828 AC 04/20 PO 1532 Magnesium Sulfate 1 GM Q2H 04/20 1445 AC Dextrose/Water 100 ML IV 04/20 1844 Magnesium Sulfate 1 GM Q2H 04/20 0230 DC 04/20 Dextrose/Water 100 ML IV 04/20 0629 0332 Morphine Sulfate 2 MG Q6P PRN 07/11 1915 AC IV Multivitamins 1 TAB DAILY 04/20 1000 AC 04/20 PO 1532 Ondansetron HCl 4 MG Q8P PRN 04/19 1915 AC IV Oxycodone/ 1 TAB Q6P PRN 04/19 1915 AC Acetaminophen PO Sodium Chloride 1,000 ML BOLUS ONE 04/19 213 DC 04/19 IV 04/19 2329 2137 Sodium Chloride 1,000 ML Q10H 04/19 2015 DC 04/20 IV 0602 Sodium Chloride 1,000 ML BOLUS ONE 04/19 1645 DC 04/19 IV 04/19 1744 1722 Sodium Chloride 1,000 ML BOLUS ONE 04/19 1645 DC 04/19 IV 04/19 1744 1635 Sodium Polystyrene 60 ML ONCE ONE 04/19 2245 DC 04/19 Sulfonate PO 04/19 2246 2252 Thiamine HCl 100 MG DAILY 04/20 1000 AC 04/20 PO 1532 Impression/Plan Impression/Problem List Impression: 46-year-old man with past medical history of hypertension, hyperlipidemia, type 2 diabetes mellitus and alcohol abuse. PROBLEM LIST 1. Acute kidney injury likely renal ? Suly 28, FeNa 4.6, Many Granular cast. diabetic or hypertensive. Medical records obtained from [facility] show normal kidney functions in december. ? illicit drug use vs metformin toxicity. BUN 84 Cr 13.6 on admission 2. Severe Anion gap metabolic acidosis. AG 30 on admission. Lactic acid 7.8 3. Hyperkalemia. 6.2 on admission 4. Hyponatremia. Na 115 on admission 5. Hypomagnesemia. 0.8 on admission 6. Positive troponins. No EKG changes. Likely demand ischemia 7. Hypocalcemia. 6.7 on admission 8. Hyperphosphatemia. 10.8 on admission 9. History of diabetes, hypertension 10. History of alcohol abuse. Drinks 6-7 glasses of vodka everyday 11. Hemoptysis 12. Microcytic anemia 13. Leukocytosis without any signs of infection PLAN * Closer ICU monitoring * Emergent Ced catheter placement and dialysis today * Nephro consult appreciated * Closer monitoring of electrolytes * Postdialysis labs with little improvement * Hep panel negative * Started patient on calcium carbonate * dialysis again tomorrow * CT chest * CIWA protocol and ativan scheduled and as needed per CIWA * Cardio consult * Serial EKGs and Trops * ECHO * GI and DVT prophylaxis * Diabetic diet * Full code Problem List: 1. Acute renal failure Pain Ratin Tomorrow's Labs & Rationales: cbc,icu bundle Plan DVT/Prophylaxis: mechanical, pharmacological
--- NOTE | 2017-04-20 15:30 | INTERVENTIONAL RADIOLOGY RPT ---
CLINICAL HISTORY: The patient is a 46-year-old male with acute kidney injury requiring temporary dialysis. He presents for nontunneled dialysis catheter placement. PROCEDURES: 1. Real-time ultrasound-guided access into the right internal jugular vein after documentation of selected vessel patency, and permanent imaging storing in the patient records. 2. Placement of a 12 [place] x 16 cm nontunneled dialysis catheter. PHYSICIANS: Dr. Casey Greenberg (attending). The attending interventional radiologist was present during the procedure and related imaging, and reviewed the report. MEDICATIONS: 1. 10 mL of 1% lidocaine SQ. COMPLICATIONS: None. ESTIMATED BLOOD LOSS: <5 mL IMPLANT: 12 [place] by 16 cm Mahurkar nontunneled dialysis catheter. CONTRAST: None. FLUOROSCOPY TIME: 0.3 minutes. PROCEDURE NOTE: Informed consent was obtained from the patient prior to the procedure. During this process, the procedure and potential alternatives were explained along with the intended outcome and benefits. The risks of the procedure, including the possibility of an unsuccessful procedure, as well as the risk of not doing the procedure, were discussed. The patient was given the opportunity to ask questions regarding the procedure and appeared competent to make decisions. A signed consent form documenting this discussion was placed in the medical record. A time-out procedure was performed. The patient was placed supine on the fluoroscopy table. The right neck and chest were prepped and draped in usual sterile fashion. All elements of maximal sterile barrier technique followed including use of cap, mask, sterile gown, sterile gloves, a sterile full body drape and hand hygiene. Also followed skin preparation with 2% chlorhexidine for cutaneous antisepsis, and sterile ultrasound preparation with sterile gel and probe cover when applicable. Ultrasound-guided vascular access: Ultrasound was used to identify the internal jugular vein. The internal jugular vein was confirmed to be patent. Real time imaging confirmed needle access into the internal jugular vein. An image was saved for permanent recording in PACS. Venous access was achieved into the right IJ vein using ultrasound and fluoroscopic guidance with a a 21-gauge needle. The guidewire was advanced centrally and into the IVC for purchase. A small skin clara was made at the access site. The guidewire was exchanged for an Amplatz stiff wire. The tract was dilated using serial fascial dilators. A 12 [place] by 16 cm nontunneled dialysis catheter was advanced over the wire. The wire was then removed. The catheter was tested, flushed, and sutured to the skin with 2-0 nylon suture with its tip in the distal superior vena cava. The catheter lumens were packed with heparin per routine protocol. A Biopatch and sterile dressing was applied. FINDINGS: 1. Patent right IJ vein. 2. Tip of the tunneled catheter in the distal superior vena cava. 3. Catheter flushes and aspirates well. 4. No pneumothorax. IMPRESSION: Successful and uncomplicated placement of an 12 [place] nontunneled dialysis catheter for dialysis access. PLAN: 1. The patient was stable after the procedure and was transferred to the interventional recovery area. The patient will be transferred back to his medical room. 2. The catheter is ready for immediate use.
--- NOTE | 2017-04-20 21:40 | CT SCAN REPORT ---
EXAMINATION: CT CHEST WITHOUT CONTRAST CLINICAL INFORMATION: Hemoptysis. Cough, shortness of breath. COMPARISON: 04/19/2017. TECHNIQUE: Contiguous axial thin section helical images of the chest were performed without contrast. The data set was reformatted in the coronal and sagittal planes and reviewed on an independent workstation. DLP: 659 mGy-cm. FINDINGS: The heart is of normal size. There is no pericardial effusion. There is neither mediastinal, hilar nor axillary lymphadenopathy. There are no chest wall masses. Review of lung windows demonstrates patchy multifocal groundglass opacification, predominantly within both upper lobes and the superior segment of the left lower lobe. There are neither pleural effusions nor pneumothoraces. There is mild dependent bibasilar atelectasis. Images of the upper abdomen demonstrate that the liver is of normal size and diffuse decreased attenuation without focal lesions. Normal adrenal glands are identified. There is a small hiatal hernia. Bone windows: There is a healing lateral right ninth rib fracture. IMPRESSION: Patchy multifocal groundglass opacification. The appearance is nonspecific, but consider infectious or inflammatory etiologies. There are neither pleural effusions nor pneumothoraces. Hepatic steatosis. Healing lateral right ninth rib fracture. Small hiatal hernia.
[2017-04-20 21:46] LABS: ABSOLUTE LYMPH COUNT 0.3 /CUMM (1.2-3.4); ABSOLUTE MONOCYTE COUNT 0.6 /CUMM (0.10-0.60); BASOPHIL % 0 % (0.0-2.0); EOSINOPHIL % 0 % (0-5); MEAN CORPUSCULAR HGB 22.2 PG (27.0-31.0); MEAN CORPUSCULAR HGB CONC 32.6 G/DL (33.0-37.0); MEAN CORPUSCULAR VOLUME 68.1 FL (80.0-94.0); MEAN PLATELET VOLUME 7.3 FL (7.4-10.4); PLATELET COUNT 160 /CUMM (130-400); RBC DISTRIBUTION WIDTH 15.1 % (11.5-14.5); RED BLOOD CELL CT 3.96 /CUMM (4.70-6.10); WHITE BLOOD CELL COUNT 18.4 /CUMM (4.8-10.8)
[2017-04-20 21:51] LABS: ABSOLUTE BASOPHIL COUNT 0 /CUMM (0.0-0.2); ABSOLUTE EOSINOPHIL COUNT 0 /CUMM (0.0-0.7); ABSOLUTE GRANULOCYTE CT 17.4 /CUMM (1.4-6.5)
[2017-04-20 22:01] LABS: GRANULOCYTE % 94.6 % (42.2-75.2)
[2017-04-21] VITALS (9 sets, daily range): BP systolic 120–160; BP diastolic 70–80
[2017-04-21 05:14] LABS: ABSOLUTE BASOPHIL COUNT 0 /CUMM (0.0-0.2); ABSOLUTE EOSINOPHIL COUNT 0 /CUMM (0.0-0.7); ABSOLUTE GRANULOCYTE CT 11.9 /CUMM (1.4-6.5); ABSOLUTE LYMPH COUNT 0.5 /CUMM (1.2-3.4); ABSOLUTE MONOCYTE COUNT 0.7 /CUMM (0.10-0.60); BASOPHIL % 0.1 % (0.0-2.0); EOSINOPHIL % 0 % (0-5); GRANULOCYTE % 90.5 % (42.2-75.2); HEMATOCRIT 26.1 % (42-52); MEAN CORPUSCULAR HGB 22.3 PG (27.0-31.0); MEAN CORPUSCULAR HGB CONC 32.5 G/DL (33.0-37.0); MEAN CORPUSCULAR VOLUME 68.4 FL (80.0-94.0); MEAN PLATELET VOLUME 7.1 FL (7.4-10.4); PLATELET COUNT 154 /CUMM (130-400); RBC DISTRIBUTION WIDTH 14.9 % (11.5-14.5); RED BLOOD CELL CT 3.81 /CUMM (4.70-6.10); WHITE BLOOD CELL COUNT 13.2 /CUMM (4.8-10.8)
--- NOTE | 2017-04-21 09:30 | Cons- Cardiology ---
General Information and HPI Consulting Request Date of Consult: 04/21/17 Requested By: DARBY VAIL MD Reason for Consult: Abnormal EKG and positive cardiac enzymes in the setting of renal failure and multiple electrolyte abnormalities. Source of Information: patient, old records Exam Limitations: poor historian History of Present Illness: The patient is a 46-year-old man with a history of hypertension, dyslipidemia, diabetes and chronic alcoholism. The patient reports that he has had sputum production and nausea and vomiting for a couple of weeks which became worse this week. 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 He does not give a history of heart disease. He states she's never had chest pains or any cardiac workup such as cardiac catheterization etc. He has previous hospitalization for acute and chronic alcoholism, most recently in [facility] a few months ago. He presented here with severe renal failure and hyponatremia. He has already been dialyzed once. His medications at home include amlodipine and hydrochlorothiazide as well as metformin and Crestor. He has been noted to have a chronically abnormal electrocardiogram as well as minimally elevated troponins. No chest pain was reported on admission. Allergies/Medications Allergies: Coded Allergies: Penicillins (Intermediate, FACIAL SWELLING 04/19/17) Home Med List: Amlodipine Besylate 10 MG TABLET 1 TAB PO DAILY BP (Reported) Hydrochlorothiazide 25 MG TABLET 1 TAB PO DAILY BP (Reported) Lisinopril 20 MG TABLET 1 TAB PO DAILY BP (Reported) Metformin HCl 1,000 MG TABLET 1 TAB PO BID DM (Reported) Pantoprazole Sodium 40 MG TABLET.DR 1 TAB PO DAILY GI (Reported) Rosuvastatin Calcium (Crestor) 10 MG TABLET 1 TAB PO DAILY CHOLESTEROL ( Reported) Current Medications: Current Medications Sig/Edward Start time Last Medication Dose Route Stop Time Status Admin Acetaminophen 650 MG Q6P PRN 04/19 1915 AC PO Albuterol Sulfate 3 ML Q4P PRN 04/21 0800 AC 04/21 INH 0844 Amlodipine Besylate 10 MG DAILY 04/20 1000 AC 04/21 PO 0908 Calcium Carbonate 1,250 MG WITH MEALS 04/20 1700 AC 04/21 PO 0908 Folic Acid 1 MG DAILY 04/20 1000 AC 04/21 PO 0908 Heparin Sodium 5,000 UNIT Q8 04/20 1730 AC 04/21 (Porcine) SC 0545 Heparin Sodium 0 .STK-MED ONE 04/20 1056 DC (Porcine) IV Lidocaine 0 .STK-MED ONE 04/20 1010 DC .ROUTE Lidocaine/Epinephrine 0 .STK-MED ONE 04/20 1010 DC .ROUTE Lorazepam 1.5 MG Q8 04/21 1400 AC PO Lorazepam 0 Q1P PRN 04/20 1730 AC IV Lorazepam 0 Q1P PRN 04/19 1830 AC 04/19 IV 2225 Lorazepam 2 MG Q6 04/19 1828 DC 04/21 PO 0545 Magnesium Oxide 400 MG ONE ONE 04/21 0830 DC 04/21 PO 04/21 0831 0908 Magnesium Sulfate 1 GM Q2H 04/20 1445 DC 04/20 Dextrose/Water 100 ML IV 04/20 1844 1845 Morphine Sulfate 2 MG Q6P PRN 04/19 1915 AC 04/20 IV 2207 Multivitamins 1 TAB DAILY 04/20 1000 AC 04/21 PO 0908 Omeprazole 40 MG DAILY AC 04/21 0700 AC 04/21 PO 0907 Ondansetron HCl 4 MG Q8P PRN 04/19 191 AC IV Oxycodone/ 1 TAB Q6P PRN 04/19 191 AC Acetaminophen PO Sodium Chloride 1,000 ML Q10H 04/19 2015 DC 04/20 IV 0602 Thiamine HCl 100 MG DAILY 04/20 1000 AC 04/21 PO 0908 Review of Systems Review of Systems: He has no other complaints in the review of systems Past History Travel History Traveled to [place] past 21 day No Medical History Blood Transfusion Hx: No Neurological: NONE EENT: NONE Cardiovascular: hypertension, hyperlipidemia Respiratory: NONE Gastrointestinal: NONE Hepatic: NONE Renal: NONE Musculoskeletal: NONE Psychiatric: NONE Endocrine: diabetes Blood Disorders: anemia Cancer(s): NONE 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 Home Who Do You Live With? parent Services at Home: None Primary Language: Gabonese Smoking Status: Former Smoker ETOH Use: heavy use Illicit Drug Use: denies illicit drug use Exam & Diagnostic Data Vital Signs and I&O Vital Signs Date Time Temp Pulse Resp B/P B/P Pulse O2 O2 Flow FiO2 Mean Ox Delivery Rate 04/21 0908 118 167/71 04/21 0856 97 Nasal 2.0L Cannula 07/13 0400 99.0 114 29 152/78 04/21 0400 93 Nasal 3.0L Cannula 04/21 0000 99.3 109 25 138/78 04/21 0000 95 Nasal 3.0L Cannula 04/21 0000 99.3 109 25 138/78 95 Nasal 3.0L Cannula 04/20 2200 98.7 124 27 155/68 04/20 2000 99.2 114 27 148/72 04/20 2000 93 Room Air 04/20 1600 125 24 160/85 04/20 1600 96 Room Air 04/20 1533 118 26 163/73 04/20 1230 Room Air 04/20 1200 96 Room Air Intake & Output 04/21 1600 04/21 0800 04/21 0000 04/20 1600 04/20 0800 04/20 0000 Intake Total 362 027 3984 1327 600 Output Total 70 55 50 265 35 Balance 30 415 1130 1062 565 Intake, IV 0 230 700 967 600 Intake, Oral 100 240 480 360 Number 0 1 4 1 Bowel Movements Output, Stool 250 Output, Urine 70 55 50 15 35 Patient 229 lb 230 lb Weight Weight Reported by Patient Measurement Method Physical Exam: This is a chronically ill-appearing middle-aged man in mild distress from shortness of breath and retching. HEENT exam is normal Chest reveals diffuse rhonchi Heart reveals mild tachycardia, regular rhythm, no murmurs Extremities no edema Labs/Ozzie Results: Laboratory Tests 04/21 Chemistry Sodium (137 - 145 mmol/L) 120 L 118 *L Potassium (3.5 - 5.1 mmol/L) 4.3 4.3 Chloride (98 - 107 mmol/L) 84 L 82 L Carbon Dioxide (22 - 30 mmol/L) 15 L 8 *L Anion Gap (5 - 16) 21 H 28 H BUN (9 - 20 mg/dL) 70 H 64 H Creatinine (0.7 - 1.2 mg/dL) 11.5 *H 10.2 *H Estimated GFR (>60 ml/min) 5 L 6 L Glucose (65 - 99 mg/dL) 142 H 217 H Lactic Acid (0.7 - 2.1 mmol/L) 1.9 Calcium (8.4 - 10.2 mg/dL) 6.4 L 5.9 *L Phosphorus (2.5 - 4.5 mg/dL) 8.1 H 8.2 H Magnesium (1.6 - 2.3 mg/dL) 1.7 1.8 Total Bilirubin (0.2 - 1.3 mg/dL) 1.1 1.1 AST (17 - 59 U/L) 32 30 ALT (21 - 72 U/L) 33 35 Troponin I (<0.11 ng/ml) 0.15 *H Albumin (3.5 - 5.0 g/dL) 3.3 L 3.4 L Hematology CBC w Diff NO MAN DIFF REQ NO MAN DIFF REQ WBC (4.8 - 10.8 /CUMM) 13.2 H 18.4 H RBC (4.70 - 6.10 /CUMM) 3.81 L 3.96 L Hgb (14.0 - 18.0 G/DL) 8.5 L 8.8 L Hct (42 - 52 %) 26.1 L 27.0 L MCV (80.0 - 94.0 FL) 68.4 L 68.1 L MCH (27.0 - 31.0 PG) 22.3 L 22.2 L RDW (11.5 - 14.5 %) 14.9 H 15.1 H Plt Count (130 - 400 /CUMM) 154 160 MPV (7.4 - 10.4 FL) 7.1 L 7.3 L Gran % (42.2 - 75.2 %) 90.5 H 94.6 H Lymphocytes % (20.5 - 51.1 %) 4.1 L 1.9 L Monocytes % (1.7 - 9.3 %) 5.3 3.5 Eosinophils % (0 - 5 %) 0 0 Basophils % (0.0 - 2.0 %) 0.1 0 L Absolute Granulocytes (1.4 - 6.5 /CUMM) 11.9 H 17.4 H Absolute Lymphocytes (1.2 - 3.4 /CUMM) 0.5 L 0.3 L Absolute Monocytes (0.10 - 0.60 /CUMM) 0.7 H 0.6 Absolute Eosinophils (0.0 - 0.7 /CUMM) 0 0 Absolute Basophils (0.0 - 0.2 /CUMM) 0 0 PUBS MCHC (33.0 - 37.0 G/DL) 32.5 L 32.6 L 04/20 04/20 04/20 04/20 1540 1500 1500 1500 Chemistry Sodium (137 - 145 mmol/L) 120 L Potassium (3.5 - 5.1 mmol/L) 4.1 Chloride (98 - 107 mmol/L) 82 L Carbon Dioxide (22 - 30 mmol/L) 11 L Anion Gap (5 - 16) 27 H BUN (9 - 20 mg/dL) 65 H Creatinine (0.7 - 1.2 mg/dL) 10.6 *H Estimated GFR (>60 ml/min) 5 L BUN/Creatinine Ratio (7 - 25 %) 6.1 L Troponin I (<0.11 ng/ml) Cancelled 0.12 *H Prot Electrophoresis Pending Total Protein (PEP) Pending Albumin % (PEP) Pending [id number] Pending Zfumt-1-Uvjpvgwhl Pending Bwji-7-Oqtiojmk Pending Imms-1-Fcmrrvrs Pending Gamma Globulins Pending Abnorm Protein Band 1 Pending Abnorm Protein Band 2 Pending Abnorm Protein Band 3 Pending Hematology CBC w Diff Cancelled WBC Cancelled RBC Cancelled Hgb Cancelled Hct Cancelled MCV Cancelled MCH Cancelled RDW Cancelled Plt Count Cancelled MPV Cancelled PUBS MCHC Cancelled Immunology MELODY Titer Pending Anti-Nuclear Antibody Pending ANCA Pending Complement C3 Pending Complement C4 Pending 04/20 04/20 04/20 1145 1139 0673 Chemistry Sodium Cancelled Potassium Cancelled Chloride Cancelled Carbon Dioxide Cancelled Anion Gap Cancelled BUN Cancelled Creatinine Cancelled BUN/Creatinine Ratio Cancelled Lactic Acid (0.7 - 2.1 mmol/L) 3.3 H Troponin I (<0.11 ng/ml) 0.11 *H Serology Hepatitis A IgM Ab (NONREACTIVE) NONREACTIVE Hep Bs Antigen (NONREACTIVE) NONREACTIVE Hep B Core IgM Ab Conf (NONREACTIVE) NONREACTIVE Hepatitis C Antibody (NONREACTIVE) NONREACTIVE 04/20 04/20 04/19 8867 8802 2130 Chemistry Sodium (137 - 145 mmol/L) 118 *L 116 *L Potassium (3.5 - 5.1 mmol/L) 5.4 H 6.2 *H Plasma Potassium (3.4 - 4.4 MMOL/L) 6.2 *H Chloride (98 - 107 mmol/L) 81 L 80 L Carbon Dioxide (22 - 30 mmol/L) 8 *L 8 *L Anion Gap (5 - 16) 29 H 28 H BUN (9 - 20 mg/dL) 83 H 84 H Creatinine (0.7 - 1.2 mg/dL) 13.6 *H 13.7 *H Estimated GFR (>60 ml/min) 4 L 4 L Glucose (65 - 99 mg/dL) 144 H 129 H Lactic Acid (0.7 - 2.1 mmol/L) 4.0 H 5.6 H Calcium (8.4 - 10.2 mg/dL) 5.8 *L 5.4 *L Phosphorus (2.5 - 4.5 mg/dL) 10.7 H 10.9 H Magnesium (1.6 - 2.3 mg/dL) 1.5 L 0.8 *L Total Bilirubin (0.2 - 1.3 mg/dL) 1.0 0.9 AST (17 - 59 U/L) 30 31 ALT (21 - 72 U/L) 30 33 Creatine Kinase (55 - 170 U/L) 559 H Troponin I (<0.11 ng/ml) 0.12 *H Albumin (3.5 - 5.0 g/dL) 3.4 L 3.7 Hematology CBC w Diff MAN DIFF ORDERED WBC (4.8 - 10.8 /CUMM) 13.2 H RBC (4.70 - 6.10 /CUMM) 4.02 L Hgb (14.0 - 18.0 G/DL) 8.9 L Hct (42 - 52 %) 27.9 L MCV (80.0 - 94.0 FL) 69.4 L MCH (27.0 - 31.0 PG) 22.2 L RDW (11.5 - 14.5 %) 14.2 Plt Count (130 - 400 /CUMM) 164 MPV (7.4 - 10.4 FL) 7.3 L Gran % (42.2 - 75.2 %) 86.2 H Lymphocytes % (20.5 - 51.1 %) 7.1 L Monocytes % (1.7 - 9.3 %) 6.6 Eosinophils % (0 - 5 %) 0 Basophils % (0.0 - 2.0 %) 0.1 Absolute Granulocytes (1.4 - 6.5 /CUMM) 11.4 H Segmented Neutrophils (42.2 - 75.2 %) 82 H Absolute Lymphocytes (1.2 - 3.4 /CUMM) 0.9 L Lymphocytes (20.5 - 51.1 %) 14 L Monocytes (1.7 - 9.3 %) 4 Absolute Monocytes (0.10 - 0.60 /CUMM) 0.9 H Absolute Eosinophils (0.0 - 0.7 /CUMM) 0 Absolute Basophils (0.0 - 0.2 /CUMM) 0 Platelet Estimate (ADEQUATE) ADEQUATE Hypochromic-Microcytic 1+ Poikilocytosis 1+ Anisocytosis 2+ Microcytic Cells 2+ Ovalocytes 1+ Elliptocytes FEW PUBS MCHC (33.0 - 37.0 G/DL) 32.0 L Other Body Source Fld Total RBCs Counted (%) 100 04/19 Chemistry Sodium (137 - 145 mmol/L) 115 *L Potassium (3.5 - 5.1 mmol/L) 6.2 *H Chloride (98 - 107 mmol/L) 77 L Carbon Dioxide (22 - 30 mmol/L) 8 *L Anion Gap (5 - 16) 30 H BUN (9 - 20 mg/dL) 84 H Creatinine (0.7 - 1.2 mg/dL) 13.3 *H Estimated GFR (>60 ml/min) 4 L BUN/Creatinine Ratio (7 - 25 %) 6.3 L Lactic Acid (0.7 - 2.1 mmol/L) 7.2 H Cancelled Total Bilirubin (0.2 - 1.3 mg/dL) 1.1 Direct Bilirubin (< 0.4 mg/dL) 0.9 H AST (17 - 59 U/L) 38 ALT (21 - 72 U/L) 31 Alkaline Phosphatase (< 127 U/L) 60 Troponin I (<0.11 ng/ml) 0.11 *H Total Protein (6.3 - 8.2 g/dL) 6.7 Albumin (3.5 - 5.0 g/dL) 4.0 Hematology CBC w Diff NO MAN DIFF REQ WBC (4.8 - 10.8 /CUMM) 14.9 H RBC (4.70 - 6.10 /CUMM) 4.29 L Hgb (14.0 - 18.0 G/DL) 9.6 L Hct (42 - 52 %) 29.3 L MCV (80.0 - 94.0 FL) 68.3 L MCH (27.0 - 31.0 PG) 22.2 L RDW (11.5 - 14.5 %) 15.3 H Plt Count (130 - 400 /CUMM) 212 MPV (7.4 - 10.4 FL) 7.1 L Gran % (42.2 - 75.2 %) 89.6 H Lymphocytes % (20.5 - 51.1 %) 5.9 L Monocytes % (1.7 - 9.3 %) 4.0 Eosinophils % (0 - 5 %) 0.1 Basophils % (0.0 - 2.0 %) 0.4 Absolute Granulocytes (1.4 - 6.5 /CUMM) 13.4 H Absolute Lymphocytes (1.2 - 3.4 /CUMM) 0.9 L Absolute Monocytes (0.10 - 0.60 /CUMM) 0.6 Absolute Eosinophils (0.0 - 0.7 /CUMM) 0 Absolute Basophils (0.0 - 0.2 /CUMM) 0.1 PUBS MCHC (33.0 - 37.0 G/DL) 32.6 L 04/19 04/19 04/19 1740 1740 1655 Chemistry Lactic Acid (0.7 - 2.1 mmol/L) 7.8 H Toxicology Urine Opiates Screen (>2000 NG/ML) < 100.00 Methadone Screen (>300 NG/ML) < 40 Barbiturate Screen (>200 NG/ML) < 60 Ur Phencyclidine Scrn (>25 NG/ML) < 6.00 Amphetamines Screen (>1000 NG/ML) < 100 U Benzodiazepines Scrn (>200 NG/ML) < 85 Urine Cocaine Screen (>300 NG/ML) < 50 Urine Cannabis Screen (>50 NG/ML) < 5.00 Urines Urine Color (YEL,AMB,STR) YEL Urine Clarity (CLEAR) HAZY H Urine pH (5.0 - 8.0) 6.0 Ur Specific [place] (1.001 - 1.035) 1.020 Urine Protein (NEG,<30 MG/DL) >=300 H Urine Ketones (NEG) NEG Urine Nitrite (NEG) NEG Urine Bilirubin (NEG) NEG Urine Urobilinogen (0.1 - 1.0 EU/dl) 0.2 Ur Leukocyte Esterase (NEG) NEG Ur Microscopic SEDIMENT EXAMINED Urine RBC (0 - 5 /HPF) 3-5 Urine WBC (0 - 2 /HPF) 3-5 H Ur Epithelial Cells (NONE,FEW) RENAL H Granular Casts (NONE /LPF) MANY H Urine Hemoglobin (NEG) LARGE H Ur Random Creatinine (mg/dL) 70.7 Ur Random Sodium (30 - 90 mmol/L) 28 L Ur Random Potassium (mmol/L) 41.1 Fraction Sodium Excret (<1% %) 4.6 H Urine Glucose (N MG/DL) 100 H 04/19 04/19 1640 1540 Blood Gas pH (7.35 - 7.45 PH) 7.29 *L pCO2 (35 - 45 TORR) 14 L pO2 (80 - 100 TORR) 131 H HCO3 (21 - 28 MEQ/L) 7 L ABG O2 Sat (Measured) (>96.0 %) 97.0 P-50 (Temp Corrected) N Carboxyhemoglobin (1.5 - 5.0 %) 0.4 L O2 Concentration % R/A Temperature (97.0 - 100.0 FARH) 97.4 Chemistry Sodium (137 - 145 mmol/L) 116 *L Potassium (3.5 - 5.1 mmol/L) 5.5 H Chloride (98 - 107 mmol/L) 73 L Carbon Dioxide (22 - 30 mmol/L) 9 *L Anion Gap (5 - 16) 34 H BUN (9 - 20 mg/dL) 83 H Creatinine (0.7 - 1.2 mg/dL) 13.6 *H Estimated GFR (>60 ml/min) 4 L BUN/Creatinine Ratio (7 - 25 %) 6.1 L Glucose (65 - 99 mg/dL) 133 H Calcium (8.4 - 10.2 mg/dL) 6.7 L Phosphorus (2.5 - 4.5 mg/dL) 10.8 H Total Bilirubin (0.2 - 1.3 mg/dL) 1.3 AST (17 - 59 U/L) 40 ALT (21 - 72 U/L) 31 Alkaline Phosphatase (< 127 U/L) 75 Creatine Kinase (55 - 170 U/L) 590 H Troponin I (<0.11 ng/ml) 0.10 Total Protein (6.3 - 8.2 g/dL) 7.6 Albumin (3.5 - 5.0 g/dL) 4.7 Globulin (1.9 - 4.2 gm/dL) 2.9 Albumin/Globulin Ratio (1.1 - 2.2 %) 1.6 Coagulation D-Dimer High Sensitivty (0 - 243 ng/ml) 223 Hematology CBC w Diff NO MAN DIFF REQ WBC (4.8 - 10.8 /CUMM) 15.8 H RBC (4.70 - 6.10 /CUMM) 4.86 Hgb (14.0 - 18.0 G/DL) 10.7 L Hct (42 - 52 %) 33.2 L MCV (80.0 - 94.0 FL) 68.3 L MCH (27.0 - 31.0 PG) 22.0 L RDW (11.5 - 14.5 %) 14.5 Plt Count (130 - 400 /CUMM) 255 MPV (7.4 - 10.4 FL) 7.4 Gran % (42.2 - 75.2 %) 88.3 H Lymphocytes % (20.5 - 51.1 %) 6.0 L Monocytes % (1.7 - 9.3 %) 5.4 Eosinophils % (0 - 5 %) 0.1 Basophils % (0.0 - 2.0 %) 0.2 Absolute Granulocytes (1.4 - 6.5 /CUMM) 14.0 H Absolute Lymphocytes (1.2 - 3.4 /CUMM) 0.9 L Absolute Monocytes (0.10 - 0.60 /CUMM) 0.8 H Absolute Eosinophils (0.0 - 0.7 /CUMM) 0 Absolute Basophils (0.0 - 0.2 /CUMM) 0 PUBS MCHC (33.0 - 37.0 G/DL) 32.2 L Miscellaneous Phlebotomy Draw Site RIGHT RADIAL Diagnostic Data EKG Results EKGs have all shown diffuse lateral ST segment and T-wave segment abnormalities with sinus rhythm and sinus tachycardia noted. CXR Results PATIENT: TITA SWEENEY PRESENT AGE: 46 PATIENT ACCOUNT NO: [id number] : 71 LOCATION: [facility] ORDERING PHYSICIAN: JEAN-CLAUDE MARTINEZ SERVICE DATE: 04/19/17 EXAM TYPE: RAD - XRY-CHEST XRAY, PA AND LATERAL EXAMINATION: XR CHEST CLINICAL INFORMATION: Cough, shortness of breath. COMPARISON: None TECHNIQUE: PA and lateral views (3 images) of the chest are obtained. FINDINGS: No significant abnormality is noted involving the heart, lungs, mediastinum, bony thorax or soft tissues. IMPRESSION: No acute cardiopulmonary process. DICTATED BY: JAMES HERNADEZ MD DATE/TIME DICTATED:04/19/171544 PULVI MIXER OPERATOR:BRITTANI DATE/TIME TRANSCRIBED:04/19/171544 CONFIDENTIAL, DO NOT COPY WITHOUT APPROPRIATE AUTHORIZATION. <Electronically signed in Other Vendor System> SIGNED BY: JAMES HERNADEZ MD [id number] Assessment/Plan Assessment/Plan This patient is a 46-year-old man, hypertensive, chronic alcoholic, who presents with severe renal failure, hyponatremia, mildly elevated troponins to a maximum of 0.15. He also has chronically abnormal electrocardiogram with diffuse ST-T wave abnormalities. His echocardiogram however shows good left ventricular systolic function. I believe his troponins are secondary to his renal failure. There does not seem to be any evidence of a acute cardiac injury at this time. His left ventricular function is normal with no regional wall motion abnormalities to suggest coronary artery disease. I recommend just monitoring for now. Most likely his troponins will remain slightly high for a while and hopefully will drop once his renal failure comes under control. There are no plans for any aggressive or interventional cardiac evaluation at this time. Consult Acknowledgment - Thank you for your consult request.
--- NOTE | 2017-04-21 09:49 | PN- Nephrology ---
Assessment/Plan Assessment: 1. Renal failure: severe - appears acute or subacute --> ? etiology - w/u in progress. Needs additional HD today 2. Hyponatremia: needs continued fluid restriction 3. Met Acid: prob combination metformin associated lactic & renal failure; improving w HD 4. HyperCa/Hyperphos/HypoMg: improving; continue CaCo3 w meals - add calcitriol w HD Suggestion: 1. HD again today & tomorrow 2. Calcitriol 1 mcg IV tiw w HD 3. fluid restrict 800 ml/day 4. d/c [place] 5. await SPEP, MELODY, ANCA, C3,C4 Subjective Subjective: Feeling better w/o any further vomiting or diarrhea Still anorexic - denies hiccups Denies SOb Remains oliguric Review old records from December 2016: Cr 0.9 Objective Vital Signs and I&Os Vital Signs Date Time Temp Pulse Resp B/P B/P Pulse O2 O2 Flow FiO2 Mean Ox Delivery Rate 04/21 0908 118 167/71 04/21 0856 97 Nasal 2.0L Cannula 04/21 0400 99.0 114 29 152/78 04/21 0400 93 Nasal 3.0L Cannula 04/21 0000 99.3 109 25 138/78 04/21 0000 95 Nasal 3.0L Cannula 04/21 0000 99.3 109 25 138/78 95 Nasal 3.0L Cannula 04/20 2200 98.7 124 27 155/68 04/20 2000 99.2 114 27 148/72 04/20 2000 93 Room Air 04/20 1600 125 24 160/85 04/20 1600 96 Room Air 04/20 1533 118 26 163/73 04/20 1230 Room Air 04/20 1200 96 Room Air Intake & Output 04/21 1600 04/21 0400 04/20 1600 04/20 0400 04/19 1600 04/19 0400 Intake Total 478 934 0934 600 Output Total 70 55 315 35 Balance 30 415 2192 565 Intake, IV 0 230 1667 600 Intake, Oral 100 240 840 Number 0 1 4 1 Bowel Movements Output, Stool 250 Output, Urine 70 55 65 35 Patient 229 lb 230 lb 230 lb Weight Weight Reported by Patient Reported by Patient Measurement Method Physical Exam General Appearance: no apparent distress, alert Head: atraumatic, normal appearance Ears, Nose, Throat: normal ENT inspection Neck: R IJ HD cath Respiratory: rhonchi Cardiovascular: regular rate/rhythm Abdomen: soft, non-tender, pulsatile mass Extremities: no edema Neurologic/Psychiatric: awake, alert Current Medications: Current Medications Sig/Edward Start time Last Medication Dose Route Stop Time Status Admin Acetaminophen 650 MG Q6P PRN 04/19 1915 AC PO Albuterol Sulfate 3 ML Q4P PRN 04/21 0800 AC 04/21 INH 0844 Amlodipine Besylate 10 MG DAILY 04/20 1000 AC 04/21 PO 0908 Calcium Carbonate 1,250 MG WITH MEALS 04/20 1700 AC 04/21 PO 0908 Folic Acid 1 MG DAILY 04/20 1000 AC 04/21 PO 0908 Heparin Sodium 5,000 UNIT Q8 04/20 1730 AC 04/21 (Porcine) SC 0545 Heparin Sodium 0 .STK-MED ONE 04/20 1056 DC (Porcine) IV Lidocaine 0 .STK-MED ONE 04/20 1010 DC .ROUTE Lidocaine/Epinephrine 0 .STK-MED ONE 04/20 1010 DC .ROUTE Lorazepam 1.5 MG Q8 04/21 1400 AC PO Lorazepam 0 Q1P PRN 04/20 1730 AC IV Lorazepam 0 Q1P PRN 04/19 1830 AC 04/19 IV 2225 Lorazepam 2 MG Q6 04/19 1828 DC 04/21 PO 0545 Magnesium Oxide 400 MG ONE ONE 04/21 0830 DC 04/21 PO 04/21 0831 0908 Magnesium Sulfate 1 GM Q2H 04/20 1445 DC 04/20 Dextrose/Water 100 ML IV 04/20 1844 1845 Morphine Sulfate 2 MG Q6P PRN 04/19 1915 AC 04/20 IV 2207 Multivitamins 1 TAB DAILY 04/20 1000 AC 04/21 PO 0908 Omeprazole 40 MG DAILY AC 04/21 0700 AC 04/21 PO 0907 Ondansetron HCl 4 MG Q8P PRN 04/19 191 AC IV Oxycodone/ 1 TAB Q6P PRN 04/19 1915 AC Acetaminophen PO Sodium Chloride 1,000 ML Q10H 04/19 2015 DC 04/20 IV 0602 Thiamine HCl 100 MG DAILY 04/20 1000 AC 04/21 PO 0908 Results Pertinent Lab Results: Laboratory Tests 04/21 04/20 0439 2059 Chemistry Sodium (137 - 145 mmol/L) 120 L 118 *L Potassium (3.5 - 5.1 mmol/L) 4.3 4.3 Chloride (98 - 107 mmol/L) 84 L 82 L Carbon Dioxide (22 - 30 mmol/L) 15 L 8 *L Anion Gap (5 - 16) 21 H 28 H BUN (9 - 20 mg/dL) 70 H 64 H Creatinine (0.7 - 1.2 mg/dL) 11.5 *H 10.2 *H Estimated GFR (>60 ml/min) 5 L 6 L Glucose (65 - 99 mg/dL) 142 H 217 H Lactic Acid (0.7 - 2.1 mmol/L) 1.9 Calcium (8.4 - 10.2 mg/dL) 6.4 L 5.9 *L Phosphorus (2.5 - 4.5 mg/dL) 8.1 H 8.2 H Magnesium (1.6 - 2.3 mg/dL) 1.7 1.8 Total Bilirubin (0.2 - 1.3 mg/dL) 1.1 1.1 AST (17 - 59 U/L) 32 30 ALT (21 - 72 U/L) 33 35 Troponin I (<0.11 ng/ml) 0.15 *H Albumin (3.5 - 5.0 g/dL) 3.3 L 3.4 L Hematology CBC w Diff NO MAN DIFF REQ NO MAN DIFF REQ WBC (4.8 - 10.8 /CUMM) 13.2 H 18.4 H RBC (4.70 - 6.10 /CUMM) 3.81 L 3.96 L Hgb (14.0 - 18.0 G/DL) 8.5 L 8.8 L Hct (42 - 52 %) 26.1 L 27.0 L MCV (80.0 - 94.0 FL) 68.4 L 68.1 L MCH (27.0 - 31.0 PG) 22.3 L 22.2 L RDW (11.5 - 14.5 %) 14.9 H 15.1 H Plt Count (130 - 400 /CUMM) 154 160 MPV (7.4 - 10.4 FL) 7.1 L 7.3 L Gran % (42.2 - 75.2 %) 90.5 H 94.6 H Lymphocytes % (20.5 - 51.1 %) 4.1 L 1.9 L Monocytes % (1.7 - 9.3 %) 5.3 3.5 Eosinophils % (0 - 5 %) 0 0 Basophils % (0.0 - 2.0 %) 0.1 0 L Absolute Granulocytes (1.4 - 6.5 /CUMM) 11.9 H 17.4 H Absolute Lymphocytes (1.2 - 3.4 /CUMM) 0.5 L 0.3 L Absolute Monocytes (0.10 - 0.60 /CUMM) 0.7 H 0.6 Absolute Eosinophils (0.0 - 0.7 /CUMM) 0 0 Absolute Basophils (0.0 - 0.2 /CUMM) 0 0 PUBS MCHC (33.0 - 37.0 G/DL) 32.5 L 32.6 L 04/20 04/20 04/20 04/20 1540 1500 1500 1500 Chemistry Sodium (137 - 145 mmol/L) 120 L Potassium (3.5 - 5.1 mmol/L) 4.1 Chloride (98 - 107 mmol/L) 82 L Carbon Dioxide (22 - 30 mmol/L) 11 L Anion Gap (5 - 16) 27 H BUN (9 - 20 mg/dL) 65 H Creatinine (0.7 - 1.2 mg/dL) 10.6 *H Estimated GFR (>60 ml/min) 5 L BUN/Creatinine Ratio (7 - 25 %) 6.1 L Troponin I (<0.11 ng/ml) Cancelled 0.12 *H Prot Electrophoresis Pending Total Protein (PEP) Pending Albumin % (PEP) Pending [id number] Pending Nirqn-[id number] Pending Lrhv-[id number] Pending [id number] Pending Gamma Globulins Pending Abnorm Protein Band 1 Pending Abnorm Protein Band 2 Pending Abnorm Protein Band 3 Pending Hematology CBC w Diff Cancelled WBC Cancelled RBC Cancelled Hgb Cancelled Hct Cancelled MCV Cancelled MCH Cancelled RDW Cancelled Plt Count Cancelled MPV Cancelled PUBS MCHC Cancelled Immunology MELODY Titer Pending Anti-Nuclear Antibody Pending ANCA Pending Complement C3 Pending Complement C4 Pending 04/20 04/20 04/20 9826 9022 3322 Chemistry Sodium Cancelled Potassium Cancelled Chloride Cancelled Carbon Dioxide Cancelled Anion Gap Cancelled BUN Cancelled Creatinine Cancelled BUN/Creatinine Ratio Cancelled Lactic Acid (0.7 - 2.1 mmol/L) 3.3 H Troponin I (<0.11 ng/ml) 0.11 *H Serology Hepatitis A IgM Ab (NONREACTIVE) NONREACTIVE Hep Bs Antigen (NONREACTIVE) NONREACTIVE Hep B Core IgM Ab Conf (NONREACTIVE) NONREACTIVE Hepatitis C Antibody (NONREACTIVE) NONREACTIVE 04/20 04/20 04/19 0446 0108 2135 Chemistry Sodium (137 - 145 mmol/L) 118 *L 116 *L Potassium (3.5 - 5.1 mmol/L) 5.4 H 6.2 *H Plasma Potassium (3.4 - 4.4 MMOL/L) 6.2 *H Chloride (98 - 107 mmol/L) 81 L 80 L Carbon Dioxide (22 - 30 mmol/L) 8 *L 8 *L Anion Gap (5 - 16) 29 H 28 H BUN (9 - 20 mg/dL) 83 H 84 H Creatinine (0.7 - 1.2 mg/dL) 13.6 *H 13.7 *H Estimated GFR (>60 ml/min) 4 L 4 L Glucose (65 - 99 mg/dL) 144 H 129 H Lactic Acid (0.7 - 2.1 mmol/L) 4.0 H 5.6 H Calcium (8.4 - 10.2 mg/dL) 5.8 *L 5.4 *L Phosphorus (2.5 - 4.5 mg/dL) 10.7 H 10.9 H Magnesium (1.6 - 2.3 mg/dL) 1.5 L 0.8 *L Total Bilirubin (0.2 - 1.3 mg/dL) 1.0 0.9 AST (17 - 59 U/L) 30 31 ALT (21 - 72 U/L) 30 33 Creatine Kinase (55 - 170 U/L) 559 H Troponin I (<0.11 ng/ml) 0.12 *H Albumin (3.5 - 5.0 g/dL) 3.4 L 3.7 Hematology CBC w Diff MAN DIFF ORDERED WBC (4.8 - 10.8 /CUMM) 13.2 H RBC (4.70 - 6.10 /CUMM) 4.02 L Hgb (14.0 - 18.0 G/DL) 8.9 L Hct (42 - 52 %) 27.9 L MCV (80.0 - 94.0 FL) 69.4 L MCH (27.0 - 31.0 PG) 22.2 L RDW (11.5 - 14.5 %) 14.2 Plt Count (130 - 400 /CUMM) 164 MPV (7.4 - 10.4 FL) 7.3 L Gran % (42.2 - 75.2 %) 86.2 H Lymphocytes % (20.5 - 51.1 %) 7.1 L Monocytes % (1.7 - 9.3 %) 6.6 Eosinophils % (0 - 5 %) 0 Basophils % (0.0 - 2.0 %) 0.1 Absolute Granulocytes (1.4 - 6.5 /CUMM) 11.4 H Segmented Neutrophils (42.2 - 75.2 %) 82 H Absolute Lymphocytes (1.2 - 3.4 /CUMM) 0.9 L Lymphocytes (20.5 - 51.1 %) 14 L Monocytes (1.7 - 9.3 %) 4 Absolute Monocytes (0.10 - 0.60 /CUMM) 0.9 H Absolute Eosinophils (0.0 - 0.7 /CUMM) 0 Absolute Basophils (0.0 - 0.2 /CUMM) 0 Platelet Estimate (ADEQUATE) ADEQUATE Hypochromic-Microcytic 1+ Poikilocytosis 1+ Anisocytosis 2+ Microcytic Cells 2+ Ovalocytes 1+ Elliptocytes FEW PUBS MCHC (33.0 - 37.0 G/DL) 32.0 L Other Body Source Fld Total RBCs Counted (%) 100 04/19 Chemistry Sodium (137 - 145 mmol/L) 115 *L Potassium (3.5 - 5.1 mmol/L) 6.2 *H Chloride (98 - 107 mmol/L) 77 L Carbon Dioxide (22 - 30 mmol/L) 8 *L Anion Gap (5 - 16) 30 H BUN (9 - 20 mg/dL) 84 H Creatinine (0.7 - 1.2 mg/dL) 13.3 *H Estimated GFR (>60 ml/min) 4 L BUN/Creatinine Ratio (7 - 25 %) 6.3 L Lactic Acid (0.7 - 2.1 mmol/L) 7.2 H Cancelled Total Bilirubin (0.2 - 1.3 mg/dL) 1.1 Direct Bilirubin (< 0.4 mg/dL) 0.9 H AST (17 - 59 U/L) 38 ALT (21 - 72 U/L) 31 Alkaline Phosphatase (< 127 U/L) 60 Troponin I (<0.11 ng/ml) 0.11 *H Total Protein (6.3 - 8.2 g/dL) 6.7 Albumin (3.5 - 5.0 g/dL) 4.0 Hematology CBC w Diff NO MAN DIFF REQ WBC (4.8 - 10.8 /CUMM) 14.9 H RBC (4.70 - 6.10 /CUMM) 4.29 L Hgb (14.0 - 18.0 G/DL) 9.6 L Hct (42 - 52 %) 29.3 L MCV (80.0 - 94.0 FL) 68.3 L MCH (27.0 - 31.0 PG) 22.2 L RDW (11.5 - 14.5 %) 15.3 H Plt Count (130 - 400 /CUMM) 212 MPV (7.4 - 10.4 FL) 7.1 L Gran % (42.2 - 75.2 %) 89.6 H Lymphocytes % (20.5 - 51.1 %) 5.9 L Monocytes % (1.7 - 9.3 %) 4.0 Eosinophils % (0 - 5 %) 0.1 Basophils % (0.0 - 2.0 %) 0.4 Absolute Granulocytes (1.4 - 6.5 /CUMM) 13.4 H Absolute Lymphocytes (1.2 - 3.4 /CUMM) 0.9 L Absolute Monocytes (0.10 - 0.60 /CUMM) 0.6 Absolute Eosinophils (0.0 - 0.7 /CUMM) 0 Absolute Basophils (0.0 - 0.2 /CUMM) 0.1 PUBS MCHC (33.0 - 37.0 G/DL) 32.6 L 04/19 04/19 04/19 1740 1740 1655 Chemistry Lactic Acid (0.7 - 2.1 mmol/L) 7.8 H Toxicology Urine Opiates Screen (>2000 NG/ML) < 100.00 Methadone Screen (>300 NG/ML) < 40 Barbiturate Screen (>200 NG/ML) < 60 Ur Phencyclidine Scrn (>25 NG/ML) < 6.00 Amphetamines Screen (>1000 NG/ML) < 100 U Benzodiazepines Scrn (>200 NG/ML) < 85 Urine Cocaine Screen (>300 NG/ML) < 50 Urine Cannabis Screen (>50 NG/ML) < 5.00 Urines Urine Color (YEL,AMB,STR) YEL Urine Clarity (CLEAR) HAZY H Urine pH (5.0 - 8.0) 6.0 Ur Specific [place] (1.001 - 1.035) 1.020 Urine Protein (NEG,<30 MG/DL) >=300 H Urine Ketones (NEG) NEG Urine Nitrite (NEG) NEG Urine Bilirubin (NEG) NEG Urine Urobilinogen (0.1 - 1.0 EU/dl) 0.2 Ur Leukocyte Esterase (NEG) NEG Ur Microscopic SEDIMENT EXAMINED Urine RBC (0 - 5 /HPF) 3-5 Urine WBC (0 - 2 /HPF) 3-5 H Ur Epithelial Cells (NONE,FEW) RENAL H Granular Casts (NONE /LPF) MANY H Urine Hemoglobin (NEG) LARGE H Ur Random Creatinine (mg/dL) 70.7 Ur Random Sodium (30 - 90 mmol/L) 28 L Ur Random Potassium (mmol/L) 41.1 Fraction Sodium Excret (<1% %) 4.6 H Urine Glucose (N MG/DL) 100 H 04/19 04/19 1640 1540 Blood Gas pH (7.35 - 7.45 PH) 7.29 *L pCO2 (35 - 45 TORR) 14 L pO2 (80 - 100 TORR) 131 H HCO3 (21 - 28 MEQ/L) 7 L ABG O2 Sat (Measured) (>96.0 %) 97.0 P-50 (Temp Corrected) N Carboxyhemoglobin (1.5 - 5.0 %) 0.4 L O2 Concentration % R/A Temperature (97.0 - 100.0 FARH) 97.4 Chemistry Sodium (137 - 145 mmol/L) 116 *L Potassium (3.5 - 5.1 mmol/L) 5.5 H Chloride (98 - 107 mmol/L) 73 L Carbon Dioxide (22 - 30 mmol/L) 9 *L Anion Gap (5 - 16) 34 H BUN (9 - 20 mg/dL) 83 H Creatinine (0.7 - 1.2 mg/dL) 13.6 *H Estimated GFR (>60 ml/min) 4 L BUN/Creatinine Ratio (7 - 25 %) 6.1 L Glucose (65 - 99 mg/dL) 133 H Calcium (8.4 - 10.2 mg/dL) 6.7 L Phosphorus (2.5 - 4.5 mg/dL) 10.8 H Total Bilirubin (0.2 - 1.3 mg/dL) 1.3 AST (17 - 59 U/L) 40 ALT (21 - 72 U/L) 31 Alkaline Phosphatase (< 127 U/L) 75 Creatine Kinase (55 - 170 U/L) 590 H Troponin I (<0.11 ng/ml) 0.10 Total Protein (6.3 - 8.2 g/dL) 7.6 Albumin (3.5 - 5.0 g/dL) 4.7 Globulin (1.9 - 4.2 gm/dL) 2.9 Albumin/Globulin Ratio (1.1 - 2.2 %) 1.6 Coagulation D-Dimer High Sensitivty (0 - 243 ng/ml) 223 Hematology CBC w Diff NO MAN DIFF REQ WBC (4.8 - 10.8 /CUMM) 15.8 H RBC (4.70 - 6.10 /CUMM) 4.86 Hgb (14.0 - 18.0 G/DL) 10.7 L Hct (42 - 52 %) 33.2 L MCV (80.0 - 94.0 FL) 68.3 L MCH (27.0 - 31.0 PG) 22.0 L RDW (11.5 - 14.5 %) 14.5 Plt Count (130 - 400 /CUMM) 255 MPV (7.4 - 10.4 FL) 7.4 Gran % (42.2 - 75.2 %) 88.3 H Lymphocytes % (20.5 - 51.1 %) 6.0 L Monocytes % (1.7 - 9.3 %) 5.4 Eosinophils % (0 - 5 %) 0.1 Basophils % (0.0 - 2.0 %) 0.2 Absolute Granulocytes (1.4 - 6.5 /CUMM) 14.0 H Absolute Lymphocytes (1.2 - 3.4 /CUMM) 0.9 L Absolute Monocytes (0.10 - 0.60 /CUMM) 0.8 H Absolute Eosinophils (0.0 - 0.7 /CUMM) 0 Absolute Basophils (0.0 - 0.2 /CUMM) 0 PUBS MCHC (33.0 - 37.0 G/DL) 32.2 L Miscellaneous Phlebotomy Draw Site RIGHT RADIAL Imaging/Other Studies: CT Chest: Patchy multifocal groundglass opacification. The appearance is nonspecific, but consider infectious or inflammatory etiologies. There are neither pleural effusions nor pneumothoraces. CT Abd: 1. No evidence of obstructive uropathy. 2. Otherwise, no acute abnormalities in the abdomen or pelvis.
--- NOTE | 2017-04-21 11:05 | RADIOLOGY REPORT ---
EXAMINATION: XR PORTABLE CHEST CLINICAL INFORMATION: Shortness of breath and cough. Question pneumonia. COMPARISON: CT chest 04/20/2017. TECHNIQUE: Portable frontal view of the chest was obtained. FINDINGS: Lung volumes are low and there is hilar vascular crowding. Ill-defined patchy airspace opacities visualized within both lungs. These findings are better illustrated on the recently obtained CT scan of the chest. The cardiac silhouette and upper mediastinal contours are normal. No acute osseous finding. A right internal jugular vein catheter is noted and its distal tip is located within the lower SVC. No acute osseous finding. IMPRESSION: Scattered ill-defined opacities are visualized within both lungs. These findings were better demonstrated on the CT chest from 04/20/2017. There has been no substantial change.
--- NOTE | 2017-04-21 12:41 | PN- Resident CRCU ---
JORDY MAZA 04/21/17 1232: Subjective HPI/CRCU Issues: This morning patient is eating his breakfast. He is requiring 3 L of oxygen and oxygen saturation is 92%. He denies any chest pain or discomfort. Still has productive cough. No hemoptysis Objective Vital Signs & I&O Last 8 Hrs of Vitals and I&O: Intake & Output 04/21 1600 Intake Total Output Total Balance Patient 245 lb Weight Weight Chair scale Measurement Method Temperature 99 Pulse 114-108 RR 29-24 BP 167-146/78-72 Pulse ox 97-93% Exam General Appearance: well developed/nourished, alert, awake, anxious Respiratory: diffuse ronchi and wheezes throughout lung field Cardiovascular: tachycardia Gastrointestinal: firm, distended, non tender Extremities: no edema Current Medications: Current Medications Sig/Edward Start time Last Medication Dose Route Stop Time Status Admin Acetaminophen 650 MG Q6P PRN 04/19 191 AC PO Albuterol Sulfate 3 ML Q4P PRN 04/21 0800 AC 04/21 INH 0844 Amlodipine Besylate 10 MG DAILY 04/20 1000 AC 04/21 PO 0908 Calcitriol 1 MCG TUES THURS SAT PRN 04/21 1000 AC IV Calcium Carbonate 1,250 MG WITH MEALS 04/20 1700 AC 04/21 PO 0908 Clindamycin 600 MG IQ8 04/21 1600 AC Dextrose/Water 50 ML IV Folic Acid 1 MG DAILY 04/20 1000 AC 04/21 PO 0908 Heparin Sodium 5,000 UNIT Q8 04/20 1730 AC 04/21 (Porcine) SC 0545 Lorazepam 1.5 MG Q8 04/21 1400 AC PO Lorazepam 0 Q1P PRN 04/20 1730 AC IV Lorazepam 0 Q1P PRN 04/19 1830 AC 04/19 IV 2225 Lorazepam 2 MG Q6 04/19 1828 DC 04/21 PO 0545 Magnesium Oxide 400 MG ONE ONE 04/21 0830 DC 04/21 PO 04/21 0831 0908 Magnesium Sulfate 1 GM Q2H 04/20 1445 DC 04/20 Dextrose/Water 100 ML IV 04/20 1844 1845 Morphine Sulfate 2 MG Q6P PRN 04/19 1915 AC 04/20 IV 2207 Multivitamins 1 TAB DAILY 04/20 1000 AC 04/21 PO 0908 Omeprazole 40 MG DAILY AC 04/21 0700 AC 04/21 PO 0907 Ondansetron HCl 4 MG Q8P PRN 04/19 1915 AC IV Oxycodone/ 1 TAB Q6P PRN 04/19 1915 AC Acetaminophen PO Sodium Chloride 1,000 ML Q10H 04/19 2015 DC 04/20 IV 0602 Thiamine HCl 100 MG DAILY 04/20 1000 AC 04/21 PO 0908 Impression/Plan Impression/Problem List Impression: 46-year-old man with past medical history of hypertension, hyperlipidemia, type 2 diabetes mellitus and alcohol abuse. PROBLEM LIST 1. Acute kidney injury likely renal ? illicit drug use vs metformin toxicity. BUN 84 Cr 13.6 on admission. s/p Dialysis tomow. 2. Severe Anion gap metabolic acidosis. improving 3. Hyperkalemia/Hyponatremia/Hypomagnesemia/ Hypocalcemia/Hyperphosphatemia 6. Positive troponins. No EKG changes. Likely demand ischemia and poor renal clearance 9. History of diabetes, hypertension 10. History of alcohol abuse. Drinks 6-7 glasses of vodka everyday 11. Hemoptysis/productive cough/now O2 requirement with ronchi and wheezes on lung auscultation. Ct chest showing patchy multifocal groundglass opacities. ? aspiration pneumonia 12. Microcytic anemia PLAN * Closer ICU monitoring * dialysis today and tomorrow * Nephro consult appreciated * Closer monitoring of electrolytes * Will start patient on clindamycin for possible aspiration * [facility] nebs * CIWA protocol and ativan scheduled and as needed per CIWA. will taper ativan today * Cardio consult appreeciated * GI and DVT prophylaxis * Diabetic diet * Full code Problem List: 1. Acute renal failure Pain Ratin Tomorrow's Labs & Rationales: cbc, icu Plan DVT/Prophylaxis: mechanical, pharmacological Code Status: Full Code DARBY VAIL MD 04/21/172055: Attending MD Review Statement Attending Sign Off Attending Gretchen Statement: I have: examined this patient, reviewed [employer] data, personally reviewd images, discussd w/resident/PA/MISSION COMMANDER, agreed w/resident/PA/MISSION COMMANDER, amended to note. Other Findings: The patient was seen and discussed with house staff. Appreciate Cardiology input and Nephrology follow up. Sodium still low- had dialysis again today. On Clindamycin for aspiration. Agree with taper of Ativan, discontinue salmeron per nephrology, fluid restrict as per nephrology.
[2017-04-21 13:17] LABS: ABSOLUTE BASOPHIL COUNT 0 /CUMM (0.0-0.2); ABSOLUTE EOSINOPHIL COUNT 0 /CUMM (0.0-0.7); ABSOLUTE GRANULOCYTE CT 12.8 /CUMM (1.4-6.5); ABSOLUTE LYMPH COUNT 0.4 /CUMM (1.2-3.4); ABSOLUTE MONOCYTE COUNT 0.8 /CUMM (0.10-0.60); BASOPHIL % 0.1 % (0.0-2.0); EOSINOPHIL % 0 % (0-5); GRANULOCYTE % 91.5 % (42.2-75.2); HEMATOCRIT 26.2 % (42-52); MEAN CORPUSCULAR HGB 22.4 PG (27.0-31.0); MEAN CORPUSCULAR HGB CONC 32.3 G/DL (33.0-37.0); MEAN CORPUSCULAR VOLUME 69.3 FL (80.0-94.0); MEAN PLATELET VOLUME 7.7 FL (7.4-10.4); PLATELET COUNT 155 /CUMM (130-400); RBC DISTRIBUTION WIDTH 15.4 % (11.5-14.5); RED BLOOD CELL CT 3.78 /CUMM (4.70-6.10)
--- NOTE | 2017-04-21 13:41 | ECHOCARDIOGRAM REPORT ---
TITA SWEENEY Age: 46 : 1970 Gender: M Exam Date: 04/20/2017 16:37 Exam Location: [facility] Ht (in): 67 Wt (lb): 230 BSA: 2.26 BP: 135 / 65 Ordering Physician: ABDI LEON MD Referring Physician: ABDI LEON MD Technologist: Betty Garcia IVONNE Room Number: 114 Indications: SHORTNESS OF BREATH Rhythm: Sinus Technical Quality: Good FINDINGS Left Ventricle Normal size left ventricle. Mild concentric left ventricular hypertrophy. Normal left ventricular ejection fraction visually estimated at >65 %. No obvious regional wall motion abnormalities. Normal left ventricular diastolic filling pattern for age. Right Ventricle The right ventricle is normal in size and function. Right Atrium The right atrium is normal in size. Left Atrium The left atrium is normal in size. The interatrial septum is intact. Mitral Valve The mitral valve is normal in structure and function. There is no mitral regurgitation. Aortic Valve Structurally normal aortic valve without significant sclerosis or stenosis. There is no aortic regurgitation. Tricuspid Valve The tricuspid valve is normal in structure and function. There is trace tricuspid regurgitation. Pulmonary artery systolic pressure is normal. Pulmonic Valve Structurally normal pulmonic valve. There is no pulmonic regurgitation. Pericardium Normal pericardium without effusion. No pleural effusion. Great Vessels Normal aortic root dimension. The aortic arch and great vessels are well seen and are normal. CONCLUSIONS Mild concentric left ventricular hypertrophy. Normal left ventricular ejection fraction visually estimated at >65 No obvious regional wall motion abnormalities. No significant valve abnormalities. Physiologic valvular regurgitation. The left atrium is normal in size. Hugh Bustos M.D. (Electronically Signed) Final Date: 21 April 2017 13:41 MEASUREMENTS (Male / Female) Normal Values 2D ECHO LV Diastolic Diameter PLAX 4.7 cm 4.2 - 5.9 / 3.9 - 5.3 cm LV Systolic Diameter PLAX 3.1 cm 2.1 - 4.0 cm LV Fractional Shortening PLAX 34.0 % 25 - 46 % LV Ejection Fraction 2D Teich 63.0 % IVS Diastolic Thickness 1.3 cm LVPW Diastolic Thickness 1.2 cm LV Relative Wall Thickness 0.5 RV Internal Dim ED PLAX 2.6 cm 1.9 - 3.8 cm LVOT Diameter 2.0 cm Aortic Root Diameter 3.0 cm LA Systolic Diameter LX 4.2 cm 3.0 - 4.0 / 2.7 - 3.8 cm LA Volume 41.0 cm 18 - 58 / 22 - 52 cm Ascending Aorta Diameter 2.7 cm DOPPLER AV Peak Velocity 165.0 cm/s AV Peak Gradient 10.9 mmHg AV Mean Velocity 124.0 cm/s AV Mean Gradient 7.0 mmHg AV Velocity Time Integral 29.5 cm LVOT Peak Velocity 127.0 cm/s LVOT Peak Gradient 6.5 mmHg LVOT Mean Velocity 92.4 cm/s LVOT Mean Gradient 4.0 mmHg LVOT Velocity Time Integral 20.0 cm LVOT Stroke Volume 62.8 cm AV Area Cont Eq vti 2.1 cm AV Area Cont Eq pk 2.4 cm MV Peak Velocity 134.0 cm/s MV Peak Gradient 7.2 mmHg MV Mean Velocity 89.3 cm/s MV Mean Gradient 4.0 mmHg Mitral E Point Velocity 133.0 cm/s Mitral A Point Velocity 91.8 cm/s Mitral E to A Ratio 1.4 MV PHT Velocity 140.0 cm/s MV Deceleration [place] 625.0 cm/s MV Pressure Half Time 67.2 ms MV Area PHT 3.3 cm MV Deceleration Time 209.0 ms TR Peak Velocity 101.0 cm/s TR Peak Gradient 4.1 mmHg Right Atrial Pressure 5.0 mmHg Pulmonary Artery Systolic Pressu 9.1 mmHg Right Ventricular Systolic Press 9.1 mmHg PV Peak Velocity 174.0 cm/s PV Peak Gradient 12.1 mmHg PV Mean Velocity 116.0 cm/s PV Mean Gradient 6.0 mmHg PV Velocity Time Integral 31.2 cm LV E' Lateral Velocity 14.2 cm/s Mitral E to LV E' Lateral Ratio 9.4 LV E' Septal Velocity 9.9 cm/s Mitral E to LV E' Septal Ratio 13.4
[2017-04-22] VITALS (9 sets, daily range): BP systolic 116–175; BP diastolic 70–80
[2017-04-22 05:28] LABS: ABSOLUTE BASOPHIL COUNT 0 /CUMM (0.0-0.2); ABSOLUTE EOSINOPHIL COUNT 0 /CUMM (0.0-0.7); ABSOLUTE GRANULOCYTE CT 9.2 /CUMM (1.4-6.5); ABSOLUTE LYMPH COUNT 0.5 /CUMM (1.2-3.4); ABSOLUTE MONOCYTE COUNT 0.6 /CUMM (0.10-0.60); BASOPHIL % 0.1 % (0.0-2.0); EOSINOPHIL % 0.1 % (0-5); GRANULOCYTE % 88.4 % (42.2-75.2); HEMATOCRIT 24.9 % (42-52); MEAN CORPUSCULAR HGB 22.3 PG (27.0-31.0); MEAN CORPUSCULAR HGB CONC 32.6 G/DL (33.0-37.0); MEAN CORPUSCULAR VOLUME 68.2 FL (80.0-94.0); MEAN PLATELET VOLUME 7.6 FL (7.4-10.4); PLATELET COUNT 159 /CUMM (130-400); RED BLOOD CELL CT 3.65 /CUMM (4.70-6.10); WHITE BLOOD CELL COUNT 10.4 /CUMM (4.8-10.8)
--- NOTE | 2017-04-22 08:11 | Transfer of Care Summary ---
Hospital Course Course Hospital Course: 46-year-old man with past medical history of hypertension, hyperlipidemia, type 2 diabetes mellitus and alcohol abuse with c/of a cough productive of yellowish sputum and some blood x several months that has been worse over last several weeks. Vitals on admission: Temperature 97.4, pulse 104, respiratory rate 20, blood pressure 119/72 and oxygen saturation 100% on room air. Laboratory Tests 04/19/17 1740: Urine Color YEL, Urine Clarity HAZY H, Urine pH 6.0, Ur Specific [place] 1.020, Urine Protein >=300 H, Urine Ketones NEG, Urine Nitrite NEG, Urine Bilirubin NEG, Urine Urobilinogen 0.2, Ur Leukocyte Esterase NEG, Ur Microscopic SEDIMENT EXAMINED, Urine RBC 3-5, Urine WBC 3-5 H, Ur Epithelial Cells RENAL H, Granular Casts MANY H, Urine Hemoglobin LARGE H, Urine Glucose 100 H 04/19/17 1655: Lactic Acid 7.8 H 04/19/17 1640: pH 7.29 *L, pCO2 14 L, pO2 131 H, HCO3 7 L, ABG O2 Sat (Measured) 97.0, P-50 (Temp Corrected) N, Carboxyhemoglobin 0.4 L, O2 Concentration % R/A, Temperature 97.4, Phlebotomy Draw Site RIGHT RADIAL 04/19/17 1540: Anion Gap 34 H, Estimated GFR 4 L, BUN/Creatinine Ratio 6.1 L, Glucose 133 H , Calcium 6.7 L, Phosphorus 10.8 H, Total Bilirubin 1.3, AST 40, ALT 31, Alkaline Phosphatase 75, Creatine Kinase 590 H, Troponin I 0.10, Total Protein 7.6, Albumin 4.7, Globulin 2.9, Albumin/Globulin Ratio 1.6, D-Dimer High Sensitivty 223, CBC w Diff NO MAN DIFF REQ, RBC 4.86, MCV 68.3 L, MCH 22.0 L, RDW 14.5, MPV 7.4, Gran % 88.3 H, Lymphocytes % 6.0 L, Monocytes % 5.4, Eosinophils % 0.1, Basophils % 0.2, Absolute Granulocytes 14.0 H, Absolute Lymphocytes 0.9 L, Absolute Monocytes 0.8 H, Absolute Eosinophils 0, Absolute Basophils 0, PUBS MCHC 32.2 L. CXR: No acute cardiopulmonary process. CT ABD & PELVIS W/O IV CONTRAST: 1. No evidence of obstructive uropathy. 2. Otherwise, no acute abnormalities in the abdomen or pelvis. Initial ED EKG: normal intervals, normal p-waves, normal sinus rhythm, rate (104 ), nonspecific ST T wave changes. He was admitted in ICU. PROBLEM LIST 1. Acute Renal failure likely renal ? illicit drug use vs metformin toxicity. Patient denied metformin overdose. Please not that he was on 1000 mg twice a day metformin that was recently started by his PCP. Nephro was called for consult. Dr. Adair saw him next day. He had emergent placement of Ced dialysis catheter (non- tunneled) by IR and was started on dialysis. He got dialysis on , 12, 13 and today. Plan is for HD again tomorrow. His creatinine came down from 13 to 9.5. Records were obtained from [facility] as he was admitted there in December 2016 for alcohol detox. Per records pateint kidney functions were completely normal in December. Utox obtained here is negative. Nephro also recommended to do SPEP, MELODY, ANCA, C3,C4, Hep BSag, Hep C Ab. Hep Panel is negative. MELODY negative. SPEP, ANCA, C3,C4 still pending. 2. Severe Anion gap metabolic acidosis. Anion gap was 34 on admission. Improving after dialysis. Today anion gap is 17. 3. Electrolyte derangements (Hyperkalemia/Hyponatremia/Hypomagnesemia/ Hypocalcemia/Hyperphosphatemia) Electrolytes are getting better with dialysis. He was also put on fluid restriction initially 800 and then later 1000 mL/day. He was also started on culture globulin IV calcitriol by food vendor. Sodium improved from 116 to 124. Potassium improved from 5.5 to 3.6. Calcium improved from 6.7 to 7.2. Phosph 10.8 to 5.1. Mg was 0.8 on admission and was repleted. Today 1.9. 6. Positive troponins. Trops 0.10 on admission and trended up to 0.11. Peak trop was 0.15. No EKG changes. Cardio was consulted. Per cardio its likely demand ischemia and poor renal clearance. Patient is stable from a cardiac standpoint. ECHO was ordered. No further cardiac workup was recommended. ECHO: CONCLUSIONS Mild concentric left ventricular hypertrophy. Normal left ventricular ejection fraction visually estimated at >65 No obvious regional wall motion abnormalities. No significant valve abnormalities. Physiologic valvular regurgitation. The left atrium is normal in size. 9. History of diabetes, hypertension Metformin, lisinopril and hydrochlorothiazide were held on admission. Amlodipine was continued. He was started on NovoLog insulin sliding scale. 10. 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 Drinks 6-7 glasses of vodka everyday. He was put on CIWA protocol and started on scheduled and IV Ativan as needed per CIWA. He is going to finish his taper tomorrow with 1 mg Ativan Po x 1. CIWA has been in range of 8-5. 11. Aspiration pneumonia (PEN allergic) Patient remained afebrile throughout hospitalization. His WBC count was elevated. He had persistent productive cough bringing up clear phlegm. No episode of hemoptysis in hospital. CT chest was done on 04/20/17. CT CHEST WO IV CONTRAST MPRESSION: Patchy multifocal groundglass opacification. The appearance is nonspecific, but consider infectious or inflammatory etiologies. There are neither pleural effusions nor pneumothoraces. Hepatic steatosis. Healing lateral right ninth rib fracture. Small hiatal hernia. 12. Microcytic anemia H/H remained stable. He was started on Epogen by Neophro with Dialysis. Assessment/Plan: * dialysis tomorrow * Nephro on board * Closer monitoring of electrolytes * Continue clindamycin for aspiration PNA * Cont TRC nebs * CIWA protocol and ativan scheduled and as needed per CIWA. taper finishing tomorrow. Please dose 1 mg x 1 tomorrow. * SPEP, ANCA, C3,C4 still pending.
--- NOTE | 2017-04-22 08:49 | PN- Nephrology ---
Assessment/Plan Assessment: 1. Renal failure: severe - appears acute or subacute --> etiology uncertain - MELODY neg but still await ANCA & SPEP. 3rd HD in progress - increase time 3 hrs & UF 2 liters 2. Hyponatremia: slowly improving 3. Met Acid: improved 4. HyperCa/Hyperphos/HypoMg: improved - continue po CaCO3 w measl& IV Calcitriol w HD Suggestion: 1. HD tomorrow 2. increase fluid allowance 1000 ml/day 3. await SPEP, ANCA, C3,C4 4. KCL 40 meq po w HD ordered this AM OK for floor from renal perspective Subjective Subjective: Doing better Mild SOB No diarrhea or vomiting Oliguric Objective Vital Signs and I&Os Vital Signs Date Time Temp Pulse Resp B/P B/P Pulse O2 O2 Flow FiO2 Mean Ox Delivery Rate 04/22 0600 103 32 162/71 04/22 0400 97.6 112 34 141/74 04/22 0400 92 Nasal 2.0L Cannula 04/22 0322 112 36 185/76 04/22 0200 114 32 175/79 04/22 0000 98.4 119 32 142/70 04/22 0000 92 Nasal 2.0L Cannula 04/22 0000 98.4 119 32 142/70 93 Nasal 2.0L Cannula 04/21 2245 93 Nasal 2.0L Cannula 04/21 2200 99.9 116 24 154/73 04/21 2000 99.5 116 20 140/80 04/21 2000 93 Nasal 2.0L Cannula 04/21 1800 116 24 160/77 04/21 1600 97.7 114 22 130/70 04/21 1600 93 Nasal 2.0L Cannula 04/21 1600 97.7 114 22 138/70 98 Nasal 2.0L Cannula 04/21 1400 98.6 110 26 156/71 04/21 1200 99.2 105 24 120/70 04/21 1200 94 Nasal 2.0L Cannula 04/21 0908 118 167/71 04/21 0856 97 Nasal 2.0L Cannula Intake & Output 04/22 0400 04/21 1600 04/21 0400 04/20 1600 04/20 0400 Intake Total 150 380 249 996 5195 600 Output Total 0 1102 55 315 35 Balance 150 380 -783 609 9309 565 Intake, IV 100 50 0 230 1667 600 Intake, Oral 50 330 400 240 840 Number 1 0 1 4 1 Bowel Movements Output, 1000 Dialysate Output, Stool 250 Output, Urine 0 102 55 65 35 Patient 245 lb 229 lb 230 lb Weight Weight Chair scale Reported by Patient Measurement Method Physical Exam General Appearance: well developed/nourished, no apparent distress, alert Head: atraumatic Ears, Nose, Throat: normal ENT inspection Neck: R IJ HD cath Respiratory: no respiratory distress, quiet respiration, decreased breath sounds Cardiovascular: regular rate/rhythm Abdomen: soft, non-tender Extremities: no edema Neurologic/Psychiatric: awake, alert Current Medications: Current Medications Sig/Edward Start time Last Medication Dose Route Stop Time Status Admin Acetaminophen 650 MG Q6P PRN 04/19 191 AC PO Albuterol Sulfate 3 ML Q4P PRN 04/21 0800 AC 04/21 INH 0844 Amlodipine Besylate 10 MG DAILY 04/20 1000 AC 04/21 PO 0908 Calcitriol 1 MCG TUES THURS SAT PRN 04/21 1000 AC IV Calcium Carbonate 1,250 MG WITH MEALS 04/20 1700 AC 04/21 PO 1633 Clindamycin 600 MG IQ8 04/21 1600 AC 04/22 Dextrose/Water 50 ML IV 0013 Folic Acid 1 MG DAILY 04/20 1000 AC 04/21 PO 0908 Heparin Sodium 5,000 UNIT Q8 04/20 1730 AC 04/22 (Porcine) SC 0520 Labetalol HCl 10 MG ONCE ONE 04/22 0330 DC 04/22 IV 04/22 0331 0322 Lorazepam 1 MG Q12 04/22 1000 AC PO Lorazepam 1.5 MG Q8 04/21 1400 DC 04/22 PO 0520 Lorazepam 0 Q1P PRN 04/20 1730 AC IV Lorazepam 0 Q1P PRN 04/19 1830 AC 04/19 IV 2225 Morphine Sulfate 2 MG Q6P PRN 04/19 1915 AC 04/20 IV 2207 Multivitamins 1 TAB DAILY 04/20 1000 AC 04/21 PO 0908 Omeprazole 40 MG DAILY AC 04/21 0700 AC 04/22 PO 0604 Ondansetron HCl 4 MG Q8P PRN 04/19 191 AC IV Oxycodone/ 1 TAB Q6P PRN 04/19 191 AC Acetaminophen PO Potassium Chloride 40 MEQ 0845 04/22 0845 AC PO 04/22 0846 Thiamine HCl 100 MG DAILY 04/20 1000 AC 04/21 PO 0908 Results Pertinent Lab Results: Laboratory Tests 04/22 04/21 04/21 0352 1740 1449 Chemistry Sodium (137 - 145 mmol/L) 124 L 122 L Cancelled Potassium (3.5 - 5.1 mmol/L) 3.6 3.8 Cancelled Chloride (98 - 107 mmol/L) 86 L 83 L Cancelled Carbon Dioxide (22 - 30 mmol/L) 22 19 L Cancelled Anion Gap (5 - 16) 17 H 20 H Cancelled BUN (9 - 20 mg/dL) 59 H 51 H Cancelled Creatinine (0.7 - 1.2 mg/dL) 9.5 *H 8.7 *H Cancelled Estimated GFR (>60 ml/min) 6 L 7 L BUN/Creatinine Ratio (7 - 25 %) 5.9 L Glucose (65 - 99 mg/dL) 192 H Cancelled Calcium (8.4 - 10.2 mg/dL) 7.2 L 7.4 L Cancelled Phosphorus (2.5 - 4.5 mg/dL) 5.1 H 5.0 H Cancelled Magnesium (1.6 - 2.3 mg/dL) 1.9 Cancelled Total Bilirubin (0.2 - 1.3 mg/dL) 0.9 Cancelled AST (17 - 59 U/L) 32 Cancelled ALT (21 - 72 U/L) 35 Cancelled Albumin (3.5 - 5.0 g/dL) 3.1 L Cancelled Hematology CBC w Diff NO MAN DIFF REQ WBC (4.8 - 10.8 /CUMM) 10.4 RBC (4.70 - 6.10 /CUMM) 3.65 L Hgb (14.0 - 18.0 G/DL) 8.1 L Hct (42 - 52 %) 24.9 L MCV (80.0 - 94.0 FL) 68.2 L MCH (27.0 - 31.0 PG) 22.3 L RDW (11.5 - 14.5 %) 15.0 H Plt Count (130 - 400 /CUMM) 159 MPV (7.4 - 10.4 FL) 7.6 Gran % (42.2 - 75.2 %) 88.4 H Lymphocytes % (20.5 - 51.1 %) 5.3 L Monocytes % (1.7 - 9.3 %) 6.1 Eosinophils % (0 - 5 %) 0.1 Basophils % (0.0 - 2.0 %) 0.1 Absolute Granulocytes (1.4 - 6.5 /CUMM) 9.2 H Absolute Lymphocytes (1.2 - 3.4 /CUMM) 0.5 L Absolute Monocytes (0.10 - 0.60 /CUMM) 0.6 Absolute Eosinophils (0.0 - 0.7 /CUMM) 0 Absolute Basophils (0.0 - 0.2 /CUMM) 0 PUBS MCHC (33.0 - 37.0 G/DL) 32.6 L 04/21 04/21 1115 0439 Chemistry Sodium (137 - 145 mmol/L) 117 *L 120 L Potassium (3.5 - 5.1 mmol/L) 4.4 4.3 Chloride (98 - 107 mmol/L) 80 L 84 L Carbon Dioxide (22 - 30 mmol/L) 15 L 15 L Anion Gap (5 - 16) 22 H 21 H BUN (9 - 20 mg/dL) 76 H 70 H Creatinine (0.7 - 1.2 mg/dL) 12.0 *H 11.5 *H Estimated GFR (>60 ml/min) 5 L 5 L Glucose (65 - 99 mg/dL) 183 H 142 H Lactic Acid (0.7 - 2.1 mmol/L) 1.9 Calcium (8.4 - 10.2 mg/dL) 6.1 L 6.4 L Phosphorus (2.5 - 4.5 mg/dL) 7.4 H 8.1 H Magnesium (1.6 - 2.3 mg/dL) 1.6 1.7 Total Bilirubin (0.2 - 1.3 mg/dL) 1.0 1.1 AST (17 - 59 U/L) 35 32 ALT (21 - 72 U/L) 36 33 Troponin I (<0.11 ng/ml) 0.15 *H Albumin (3.5 - 5.0 g/dL) 3.5 3.3 L Hematology CBC w Diff NO MAN DIFF REQ NO MAN DIFF REQ WBC (4.8 - 10.8 /CUMM) 14.0 H 13.2 H RBC (4.70 - 6.10 /CUMM) 3.78 L 3.81 L Hgb (14.0 - 18.0 G/DL) 8.5 L 8.5 L Hct (42 - 52 %) 26.2 L 26.1 L MCV (80.0 - 94.0 FL) 69.3 L 68.4 L MCH (27.0 - 31.0 PG) 22.4 L 22.3 L RDW (11.5 - 14.5 %) 15.4 H 14.9 H Plt Count (130 - 400 /CUMM) 155 154 MPV (7.4 - 10.4 FL) 7.7 7.1 L Gran % (42.2 - 75.2 %) 91.5 H 90.5 H Lymphocytes % (20.5 - 51.1 %) 3.0 L 4.1 L Monocytes % (1.7 - 9.3 %) 5.4 5.3 Eosinophils % (0 - 5 %) 0 0 Basophils % (0.0 - 2.0 %) 0.1 0.1 Absolute Granulocytes (1.4 - 6.5 /CUMM) 12.8 H 11.9 H Absolute Lymphocytes (1.2 - 3.4 /CUMM) 0.4 L 0.5 L Absolute Monocytes (0.10 - 0.60 /CUMM) 0.8 H 0.7 H Absolute Eosinophils (0.0 - 0.7 /CUMM) 0 0 Absolute Basophils (0.0 - 0.2 /CUMM) 0 0 PUBS MCHC (33.0 - 37.0 G/DL) 32.3 L 32.5 L 04/20 04/20 04/20 2059 1540 1500 Chemistry Sodium (137 - 145 mmol/L) 118 *L Potassium (3.5 - 5.1 mmol/L) 4.3 Chloride (98 - 107 mmol/L) 82 L Carbon Dioxide (22 - 30 mmol/L) 8 *L Anion Gap (5 - 16) 28 H BUN (9 - 20 mg/dL) 64 H Creatinine (0.7 - 1.2 mg/dL) 10.2 *H Estimated GFR (>60 ml/min) 6 L Glucose (65 - 99 mg/dL) 217 H Calcium (8.4 - 10.2 mg/dL) 5.9 *L Phosphorus (2.5 - 4.5 mg/dL) 8.2 H Magnesium (1.6 - 2.3 mg/dL) 1.8 Total Bilirubin (0.2 - 1.3 mg/dL) 1.1 AST (17 - 59 U/L) 30 ALT (21 - 72 U/L) 35 Troponin I Cancelled Albumin (3.5 - 5.0 g/dL) 3.4 L Hematology CBC w Diff NO MAN DIFF REQ Cancelled WBC (4.8 - 10.8 /CUMM) 18.4 H Cancelled RBC (4.70 - 6.10 /CUMM) 3.96 L Cancelled Hgb (14.0 - 18.0 G/DL) 8.8 L Cancelled Hct (42 - 52 %) 27.0 L Cancelled MCV (80.0 - 94.0 FL) 68.1 L Cancelled MCH (27.0 - 31.0 PG) 22.2 L Cancelled RDW (11.5 - 14.5 %) 15.1 H Cancelled Plt Count (130 - 400 /CUMM) 160 Cancelled MPV (7.4 - 10.4 FL) 7.3 L Cancelled Gran % (42.2 - 75.2 %) 94.6 H Lymphocytes % (20.5 - 51.1 %) 1.9 L Monocytes % (1.7 - 9.3 %) 3.5 Eosinophils % (0 - 5 %) 0 Basophils % (0.0 - 2.0 %) 0 L Absolute Granulocytes (1.4 - 6.5 /CUMM) 17.4 H Absolute Lymphocytes (1.2 - 3.4 /CUMM) 0.3 L Absolute Monocytes (0.10 - 0.60 /CUMM) 0.6 Absolute Eosinophils (0.0 - 0.7 /CUMM) 0 Absolute Basophils (0.0 - 0.2 /CUMM) 0 PUBS MCHC (33.0 - 37.0 G/DL) 32.6 L Cancelled 04/20 04/20 04/20 1500 1500 1145 Chemistry Sodium (137 - 145 mmol/L) 120 L Potassium (3.5 - 5.1 mmol/L) 4.1 Chloride (98 - 107 mmol/L) 82 L Carbon Dioxide (22 - 30 mmol/L) 11 L Anion Gap (5 - 16) 27 H BUN (9 - 20 mg/dL) 65 H Creatinine (0.7 - 1.2 mg/dL) 10.6 *H Estimated GFR (>60 ml/min) 5 L BUN/Creatinine Ratio (7 - 25 %) 6.1 L Troponin I (<0.11 ng/ml) 0.12 *H 0.11 *H Prot Electrophoresis Pending Total Protein (PEP) Pending Albumin % (PEP) Pending [id number] Pending [id number] Pending [id number] Pending [id number] Pending Gamma Globulins Pending Abnorm Protein Band 1 Pending Abnorm Protein Band 2 Pending Abnorm Protein Band 3 Pending Immunology MELODY Titer ND Anti-Nuclear Antibody (NEG,1:40) NEG 1:40 IFA ASSAY ANCA Pending Complement C3 Pending Complement C4 Pending Serology Hepatitis A IgM Ab (NONREACTIVE) NONREACTIVE Hep Bs Antigen (NONREACTIVE) NONREACTIVE Hep B Core IgM Ab Conf (NONREACTIVE) NONREACTIVE Hepatitis C Antibody (NONREACTIVE) NONREACTIVE 04/20 04/20 04/20 1139 0674 0446 Chemistry Sodium (137 - 145 mmol/L) Cancelled 118 *L Potassium (3.5 - 5.1 mmol/L) Cancelled 5.4 H Chloride (98 - 107 mmol/L) Cancelled 81 L Carbon Dioxide (22 - 30 mmol/L) Cancelled 8 *L Anion Gap (5 - 16) Cancelled 29 H BUN (9 - 20 mg/dL) Cancelled 83 H Creatinine (0.7 - 1.2 mg/dL) Cancelled 13.6 *H Estimated GFR (>60 ml/min) 4 L BUN/Creatinine Ratio Cancelled Glucose (65 - 99 mg/dL) 144 H Lactic Acid (0.7 - 2.1 mmol/L) 3.3 H 4.0 H Calcium (8.4 - 10.2 mg/dL) 5.8 *L Phosphorus (2.5 - 4.5 mg/dL) 10.7 H Magnesium (1.6 - 2.3 mg/dL) 1.5 L Total Bilirubin (0.2 - 1.3 mg/dL) 1.0 AST (17 - 59 U/L) 30 ALT (21 - 72 U/L) 30 Creatine Kinase (55 - 170 U/L) 559 H Troponin I (<0.11 ng/ml) 0.12 *H Albumin (3.5 - 5.0 g/dL) 3.4 L Hematology CBC w Diff MAN DIFF ORDERED WBC (4.8 - 10.8 /CUMM) 13.2 H RBC (4.70 - 6.10 /CUMM) 4.02 L Hgb (14.0 - 18.0 G/DL) 8.9 L Hct (42 - 52 %) 27.9 L MCV (80.0 - 94.0 FL) 69.4 L MCH (27.0 - 31.0 PG) 22.2 L RDW (11.5 - 14.5 %) 14.2 Plt Count (130 - 400 /CUMM) 164 MPV (7.4 - 10.4 FL) 7.3 L Gran % (42.2 - 75.2 %) 86.2 H Lymphocytes % (20.5 - 51.1 %) 7.1 L Monocytes % (1.7 - 9.3 %) 6.6 Eosinophils % (0 - 5 %) 0 Basophils % (0.0 - 2.0 %) 0.1 Absolute Granulocytes (1.4 - 6.5 /CUMM) 11.4 H Segmented Neutrophils (42.2 - 75.2 %) 82 H Absolute Lymphocytes (1.2 - 3.4 /CUMM) 0.9 L Lymphocytes (20.5 - 51.1 %) 14 L Monocytes (1.7 - 9.3 %) 4 Absolute Monocytes (0.10 - 0.60 /CUMM) 0.9 H Absolute Eosinophils (0.0 - 0.7 /CUMM) 0 Absolute Basophils (0.0 - 0.2 /CUMM) 0 Platelet Estimate (ADEQUATE) ADEQUATE Hypochromic-Microcytic 1+ Poikilocytosis 1+ Anisocytosis 2+ Microcytic Cells 2+ Ovalocytes 1+ Elliptocytes FEW PUBS MCHC (33.0 - 37.0 G/DL) 32.0 L Other Body Source Fld Total RBCs Counted (%) 100 04/20 04/19 04/19 0108 2134 2049 Chemistry Sodium (137 - 145 mmol/L) 116 *L 115 *L Potassium (3.5 - 5.1 mmol/L) 6.2 *H 6.2 *H Plasma Potassium (3.4 - 4.4 MMOL/L) 6.2 *H Chloride (98 - 107 mmol/L) 80 L 77 L Carbon Dioxide (22 - 30 mmol/L) 8 *L 8 *L Anion Gap (5 - 16) 28 H 30 H BUN (9 - 20 mg/dL) 84 H 84 H Creatinine (0.7 - 1.2 mg/dL) 13.7 *H 13.3 *H Estimated GFR (>60 ml/min) 4 L 4 L BUN/Creatinine Ratio (7 - 25 %) 6.3 L Glucose (65 - 99 mg/dL) 129 H Lactic Acid (0.7 - 2.1 mmol/L) 5.6 H 7.2 H Calcium (8.4 - 10.2 mg/dL) 5.4 *L Phosphorus (2.5 - 4.5 mg/dL) 10.9 H Magnesium (1.6 - 2.3 mg/dL) 0.8 *L Total Bilirubin (0.2 - 1.3 mg/dL) 0.9 1.1 Direct Bilirubin (< 0.4 mg/dL) 0.9 H AST (17 - 59 U/L) 31 38 ALT (21 - 72 U/L) 33 31 Alkaline Phosphatase (< 127 U/L) 60 Troponin I (<0.11 ng/ml) 0.11 *H Total Protein (6.3 - 8.2 g/dL) 6.7 Albumin (3.5 - 5.0 g/dL) 3.7 4.0 Hematology CBC w Diff NO MAN DIFF REQ WBC (4.8 - 10.8 /CUMM) 14.9 H RBC (4.70 - 6.10 /CUMM) 4.29 L Hgb (14.0 - 18.0 G/DL) 9.6 L Hct (42 - 52 %) 29.3 L MCV (80.0 - 94.0 FL) 68.3 L MCH (27.0 - 31.0 PG) 22.2 L RDW (11.5 - 14.5 %) 15.3 H Plt Count (130 - 400 /CUMM) 212 MPV (7.4 - 10.4 FL) 7.1 L Gran % (42.2 - 75.2 %) 89.6 H Lymphocytes % (20.5 - 51.1 %) 5.9 L Monocytes % (1.7 - 9.3 %) 4.0 Eosinophils % (0 - 5 %) 0.1 Basophils % (0.0 - 2.0 %) 0.4 Absolute Granulocytes (1.4 - 6.5 /CUMM) 13.4 H Absolute Lymphocytes (1.2 - 3.4 /CUMM) 0.9 L Absolute Monocytes (0.10 - 0.60 /CUMM) 0.6 Absolute Eosinophils (0.0 - 0.7 /CUMM) 0 Absolute Basophils (0.0 - 0.2 /CUMM) 0.1 PUBS MCHC (33.0 - 37.0 G/DL) 32.6 L 04/19 04/19 04/19 1956 1740 1740 Chemistry Lactic Acid Cancelled Toxicology Urine Opiates Screen (>2000 NG/ML) < 100.00 Methadone Screen (>300 NG/ML) < 40 Barbiturate Screen (>200 NG/ML) < 60 Ur Phencyclidine Scrn (>25 NG/ML) < 6.00 Amphetamines Screen (>1000 NG/ML) < 100 U Benzodiazepines Scrn (>200 NG/ML) < 85 Urine Cocaine Screen (>300 NG/ML) < 50 Urine Cannabis Screen (>50 NG/ML) < 5.00 Urines Urine Color (YEL,AMB,STR) YEL Urine Clarity (CLEAR) HAZY H Urine pH (5.0 - 8.0) 6.0 Ur Specific [place] (1.001 - 1.035) 1.020 Urine Protein (NEG,<30 MG/DL) >=300 H Urine Ketones (NEG) NEG Urine Nitrite (NEG) NEG Urine Bilirubin (NEG) NEG Urine Urobilinogen (0.1 - 1.0 EU/dl) 0.2 Ur Leukocyte Esterase (NEG) NEG Ur Microscopic SEDIMENT EXAMINED Urine RBC (0 - 5 /HPF) 3-5 Urine WBC (0 - 2 /HPF) 3-5 H Ur Epithelial Cells (NONE,FEW) RENAL H Granular Casts (NONE /LPF) MANY H Urine Hemoglobin (NEG) LARGE H Ur Random Creatinine (mg/dL) 70.7 Ur Random Sodium (30 - 90 mmol/L) 28 L Ur Random Potassium (mmol/L) 41.1 Fraction Sodium Excret (<1% %) 4.6 H Urine Glucose (N MG/DL) 100 H 04/19 04/19 04/19 1655 1640 1540 Blood Gas pH (7.35 - 7.45 PH) 7.29 *L pCO2 (35 - 45 TORR) 14 L pO2 (80 - 100 TORR) 131 H HCO3 (21 - 28 MEQ/L) 7 L ABG O2 Sat (Measured) (>96.0 %) 97.0 P-50 (Temp Corrected) N Carboxyhemoglobin (1.5 - 5.0 %) 0.4 L O2 Concentration % R/A Temperature (97.0 - 100.0 FARH) 97.4 Chemistry Sodium (137 - 145 mmol/L) 116 *L Potassium (3.5 - 5.1 mmol/L) 5.5 H Chloride (98 - 107 mmol/L) 73 L Carbon Dioxide (22 - 30 mmol/L) 9 *L Anion Gap (5 - 16) 34 H BUN (9 - 20 mg/dL) 83 H Creatinine (0.7 - 1.2 mg/dL) 13.6 *H Estimated GFR (>60 ml/min) 4 L BUN/Creatinine Ratio (7 - 25 %) 6.1 L Glucose (65 - 99 mg/dL) 133 H Lactic Acid (0.7 - 2.1 mmol/L) 7.8 H Calcium (8.4 - 10.2 mg/dL) 6.7 L Phosphorus (2.5 - 4.5 mg/dL) 10.8 H Total Bilirubin (0.2 - 1.3 mg/dL) 1.3 AST (17 - 59 U/L) 40 ALT (21 - 72 U/L) 31 Alkaline Phosphatase (< 127 U/L) 75 Creatine Kinase (55 - 170 U/L) 590 H Troponin I (<0.11 ng/ml) 0.10 Total Protein (6.3 - 8.2 g/dL) 7.6 Albumin (3.5 - 5.0 g/dL) 4.7 Globulin (1.9 - 4.2 gm/dL) 2.9 Albumin/Globulin Ratio (1.1 - 2.2 %) 1.6 Coagulation D-Dimer High Sensitivty (0 - 243 ng/ml) 223 Hematology CBC w Diff NO MAN DIFF REQ WBC (4.8 - 10.8 /CUMM) 15.8 H RBC (4.70 - 6.10 /CUMM) 4.86 Hgb (14.0 - 18.0 G/DL) 10.7 L Hct (42 - 52 %) 33.2 L MCV (80.0 - 94.0 FL) 68.3 L MCH (27.0 - 31.0 PG) 22.0 L RDW (11.5 - 14.5 %) 14.5 Plt Count (130 - 400 /CUMM) 255 MPV (7.4 - 10.4 FL) 7.4 Gran % (42.2 - 75.2 %) 88.3 H Lymphocytes % (20.5 - 51.1 %) 6.0 L Monocytes % (1.7 - 9.3 %) 5.4 Eosinophils % (0 - 5 %) 0.1 Basophils % (0.0 - 2.0 %) 0.2 Absolute Granulocytes (1.4 - 6.5 /CUMM) 14.0 H Absolute Lymphocytes (1.2 - 3.4 /CUMM) 0.9 L Absolute Monocytes (0.10 - 0.60 /CUMM) 0.8 H Absolute Eosinophils (0.0 - 0.7 /CUMM) 0 Absolute Basophils (0.0 - 0.2 /CUMM) 0 PUBS MCHC (33.0 - 37.0 G/DL) 32.2 L Miscellaneous Phlebotomy Draw Site RIGHT RADIAL Imaging/Other Studies: CXR: IMPRESSION: Scattered ill-defined opacities are visualized within both lungs. These findings were better demonstrated on the CT chest from 04/20/2017. There has been no substantial change.
--- NOTE | 2017-04-22 09:58 | PN- Cardiology ---
Subjective Subjective: The patient is undergoing dialysis. He has no specific complaints this morning. His renal function continues to be abnormal but his sodium is improving. His last troponin was 0.15 yesterday morning. He remains in sinus rhythm and mild sinus tachycardia with no arrhythmias. Objective Vital Signs and I&Os Vital Signs Date Time Temp Pulse Resp B/P B/P Pulse O2 O2 Flow FiO2 Mean Ox Delivery Rate 04/22 0600 103 32 162/71 04/22 0400 97.6 112 34 141/74 04/22 0400 92 Nasal 2.0L Cannula 04/22 0322 112 36 185/76 04/22 0200 114 32 175/79 04/22 0000 98.4 119 32 142/70 04/22 0000 92 Nasal 2.0L Cannula 04/22 0000 98.4 119 32 142/70 93 Nasal 2.0L Cannula 04/21 2245 93 Nasal 2.0L Cannula 04/21 2200 99.9 116 24 154/73 04/21 2000 99.5 116 20 140/80 04/21 2000 93 Nasal 2.0L Cannula 04/21 1800 116 24 160/77 04/21 1600 97.7 114 22 130/70 04/21 1600 93 Nasal 2.0L Cannula 04/21 1600 97.7 114 22 138/70 98 Nasal 2.0L Cannula 04/21 1400 98.6 110 26 156/71 04/21 1200 99.2 105 24 120/70 04/21 1200 94 Nasal 2.0L Cannula Intake & Output 04/22 1600 04/22 0800 04/22 0000 04/21 1600 04/21 0800 04/21 0000 Intake Total 150 380 300 100 470 Output Total 0 1032 70 55 Balance 150 380 -732 30 415 Intake, IV 100 50 0 230 Intake, Oral 50 330 300 100 240 Number 1 0 1 Bowel Movements Output, 1000 Dialysate Output, Urine 0 32 70 55 Patient 245 lb Weight Weight Chair scale Measurement Method Physical Exam: He is in no distress HEENT exam normal Chest scattered rhonchi and mild wheezing Heart regular rhythm no murmurs Extremities no edema Current Medications: Current Medications Sig/Edward Start time Last Medication Dose Route Stop Time Status Admin Acetaminophen 650 MG Q6P PRN 04/19 1915 AC PO Albuterol Sulfate 3 ML Q4P PRN 04/21 0800 AC 04/21 INH 0844 Amlodipine Besylate 10 MG DAILY 04/20 1000 AC 04/21 PO 0908 Calcitriol 1 MCG TUES THURS SAT PRN 04/21 1000 AC IV Calcium Carbonate 1,250 MG WITH MEALS 04/20 1700 AC 04/21 PO 1633 Clindamycin 600 MG IQ8 04/21 1600 AC 04/22 Dextrose/Water 50 ML IV 0013 Epoetin Jeyson 6,000 UNIT TUES THURS SAT 04/23 1000 AC IV Folic Acid 1 MG DAILY 04/20 1000 AC 04/21 PO 0908 Heparin Sodium 5,000 UNIT Q8 04/20 1730 AC 04/22 (Porcine) SC 0520 Labetalol HCl 10 MG ONCE ONE 04/22 0330 DC 04/22 IV 04/22 0331 0322 Lorazepam 1 MG Q12 04/22 1000 AC PO Lorazepam 1.5 MG Q8 04/21 1400 DC 04/22 PO 0520 Lorazepam 0 Q1P PRN 04/20 1730 AC IV Lorazepam 0 Q1P PRN 04/19 1830 AC 04/19 IV 2225 Morphine Sulfate 2 MG Q6P PRN 04/19 1915 AC 04/20 IV 2207 Multivitamins 1 TAB DAILY 04/22 1000 AC PO Multivitamins 1 TAB DAILY 04/20 1000 AC 04/21 PO 0908 Omeprazole 40 MG DAILY AC 04/21 0700 AC 04/22 PO 0604 Ondansetron HCl 4 MG Q8P PRN 04/19 191 AC IV Oxycodone/ 1 TAB Q6P PRN 04/19 191 AC Acetaminophen PO Potassium Chloride 40 MEQ 0845 04/22 0845 DC 04/22 PO 04/22 0846 0857 Thiamine HCl 100 MG DAILY 04/20 1000 AC 04/21 PO 0908 Results Last 48 Hrs of Labs/Mics: Laboratory Tests 04/22/17 0352: Anion Gap 17 H, Estimated GFR 6 L, Glucose 192 H, Calcium 7.2 L, Phosphorus 5.1 H, Magnesium 1.9, Total Bilirubin 0.9, AST 32, ALT 35, Albumin 3.1 L, CBC w Diff NO MAN DIFF REQ, RBC 3.65 L, MCV 68.2 L, MCH 22.3 L, RDW 15.0 H, MPV 7.6, Gran % 88.4 H, Lymphocytes % 5.3 L, Monocytes % 6.1, Eosinophils % 0.1, Basophils % 0.1, Absolute Granulocytes 9.2 H, Absolute Lymphocytes 0.5 L, Absolute Monocytes 0.6, Absolute Eosinophils 0, Absolute Basophils 0, PUBS MCHC 32.6 L 04/21/17 1740: Anion Gap 20 H, Estimated GFR 7 L, BUN/Creatinine Ratio 5.9 L, Calcium 7.4 L , Phosphorus 5.0 H 04/21/17 1449: Sodium Cancelled, Potassium Cancelled, Chloride Cancelled, Carbon Dioxide Cancelled, Anion Gap Cancelled, BUN Cancelled, Creatinine Cancelled, Glucose Cancelled, Calcium Cancelled, Phosphorus Cancelled, Magnesium Cancelled, Total Bilirubin Cancelled, AST Cancelled, ALT Cancelled, Albumin Cancelled 04/21/17 1115: Anion Gap 22 H, Estimated GFR 5 L, Glucose 183 H, Calcium 6.1 L, Phosphorus 7.4 H, Magnesium 1.6, Total Bilirubin 1.0, AST 35, ALT 36, Albumin 3.5, CBC w Diff NO MAN DIFF REQ, RBC 3.78 L, MCV 69.3 L, MCH 22.4 L, RDW 15.4 H, MPV 7.7, Gran % 91.5 H, Lymphocytes % 3.0 L, Monocytes % 5.4, Eosinophils % 0, Basophils % 0.1, Absolute Granulocytes 12.8 H, Absolute Lymphocytes 0.4 L, Absolute Monocytes 0.8 H, Absolute Eosinophils 0, Absolute Basophils 0, PUBS MCHC 32.3 L 04/21/17 0439: Anion Gap 21 H, Estimated GFR 5 L, Glucose 142 H, Lactic Acid 1.9, Calcium 6.4 L, Phosphorus 8.1 H, Magnesium 1.7, Total Bilirubin 1.1, AST 32, ALT 33, Troponin I 0.15 *H, Albumin 3.3 L, CBC w Diff NO MAN DIFF REQ, RBC 3.81 L, MCV 68.4 L, MCH 22.3 L, RDW 14.9 H, MPV 7.1 L, Gran % 90.5 H, Lymphocytes % 4.1 L, Monocytes % 5.3, Eosinophils % 0, Basophils % 0.1, Absolute Granulocytes 11.9 H, Absolute Lymphocytes 0.5 L, Absolute Monocytes 0.7 H, Absolute Eosinophils 0, Absolute Basophils 0, PUBS MCHC 32.5 L 04/20/172058: Anion Gap 28 H, Estimated GFR 6 L, Glucose 217 H, Calcium 5.9 *L, Phosphorus 8.2 H, Magnesium 1.8, Total Bilirubin 1.1, AST 30, ALT 35, Albumin 3.4 L, CBC w Diff NO MAN DIFF REQ, RBC 3.96 L, MCV 68.1 L, MCH 22.2 L, RDW 15.1 H, MPV 7.3 L, Gran % 94.6 H, Lymphocytes % 1.9 L, Monocytes % 3.5, Eosinophils % 0, Basophils % 0 L, Absolute Granulocytes 17.4 H, Absolute Lymphocytes 0.3 L, Absolute Monocytes 0.6, Absolute Eosinophils 0, Absolute Basophils 0, PUBS MCHC 32.6 L 04/20/17 1540: CBC w Diff Cancelled, WBC Cancelled, RBC Cancelled, Hgb Cancelled, Hct Cancelled , MCV Cancelled, MCH Cancelled, RDW Cancelled, Plt Count Cancelled, MPV Cancelled, PUBS MCHC Cancelled 04/20/17 1500: Troponin I Cancelled 04/20/17 1500: Anion Gap 27 H, Estimated GFR 5 L, BUN/Creatinine Ratio 6.1 L, Troponin I 0.12 *H, MELODY Titer ND, Anti-Nuclear Antibody NEG 1:40 IFA ASSAY 04/20/17 1500: Prot Electrophoresis Pending, Total Protein (PEP) Pending, Albumin % (PEP) Pending, [id number] Pending, Issdf-2-Akeyyppcf Pending, Kqsi-4-Gtpsxacf Pending, Bqpv-7-Yzaxzdli Pending, Gamma Globulins Pending, Abnorm Protein Band 1 Pending, Abnorm Protein Band 2 Pending, Abnorm Protein Band 3 Pending, ANCA Pending, Complement C3 Pending, Complement C4 Pending 04/20/17 1145: Troponin I 0.11 *H, Hepatitis A IgM Ab NONREACTIVE, Hep Bs Antigen NONREACTIVE, Hep B Core IgM Ab Conf NONREACTIVE, Hepatitis C Antibody NONREACTIVE 04/20/17 1139: Sodium Cancelled, Potassium Cancelled, Chloride Cancelled, Carbon Dioxide Cancelled, Anion Gap Cancelled, BUN Cancelled, Creatinine Cancelled, BUN/ Creatinine Ratio Cancelled Assessment/Plan Assessment/Plan The patient is stable from a cardiac standpoint. He has a flat troponin curve, only mildly elevated, likely due to acute renal failure. We will get one more troponin to see if this stays elevated or drops below the threshold. Otherwise no further cardiac workup is planned. Continue telemetry? Yes
--- NOTE | 2017-04-22 16:52 | PN- Housestaff ---
See Addendum Subjective Follow-up For: Acute renal failure Electrolyte derangements Positive troponins Aspiration pneumonia Subjective: This morning patient is feeling better. He is on 2 L of oxygen via nasal cannula. Denies any chest pain or discomfort. Still having productive cough bringing up clear phlegm. Denies any nausea, vomiting, abdominal pain. No change in color of stool. Review of Systems Constitutional: Reports: see HPI. Objective Last 24 Hrs of Vital Signs/I&O Vital Signs Date Time Temp Pulse Resp B/P B/P Pulse O2 O2 Flow FiO2 Mean Ox Delivery Rate 04/22 1415 94 Nasal 2.0L Cannula 04/22 1237 100 160/70 04/22 0800 98.9 100 20 130/70 04/22 0800 96 Nasal 2.0L Cannula 04/22 0800 98.9 100 20 130/70 96 Nasal 2.0L Cannula 04/22 0600 103 32 162/71 04/22 0400 97.6 112 34 141/74 04/22 0400 92 Nasal 2.0L Cannula 04/22 0322 112 36 185/76 04/22 0200 114 32 175/79 04/22 0000 98.4 119 32 142/70 04/22 0000 92 Nasal 2.0L Cannula 04/22 0000 98.4 119 32 142/70 93 Nasal 2.0L Cannula 04/21 2245 93 Nasal 2.0L Cannula 04/21 2200 99.9 116 24 154/73 04/21 2000 99.5 116 20 140/80 04/21 2000 93 Nasal 2.0L Cannula 04/21 1800 116 24 160/77 Intake & Output 04/22 1600 04/22 0800 04/22 0000 Intake Total 150 380 Output Total 0 Balance 150 380 Intake, IV 100 50 Intake, Oral 50 330 Number 1 Bowel Movements Output, Urine 0 Physical Exam General Appearance: Alert, Oriented X3, Cooperative, No Acute Distress Neck: Supple Cardiovascular: tachy Lungs: Clear to Auscultation Abdomen: Normal Bowel Sounds, No Tenderness, firm, distended Neurological: Normal Speech, Strength at 5/5 X4 Ext, Sensation Intact, Cranial Nerves 3-12 NL Extremities: No Edema Current Medications: Current Medications Sig/Edward Start time Last Medication Dose Route Stop Time Status Admin Acetaminophen 650 MG Q6P PRN 04/19 191 AC PO Albuterol Sulfate 3 ML Q4P PRN 04/21 0800 AC 04/21 INH 0844 Amlodipine Besylate 10 MG DAILY 04/20 1000 AC 04/22 PO 1237 Calcitriol 1 MCG TU SAT PRN 04/21 1000 AC IV Calcium Carbonate 1,250 MG WITH MEALS 04/20 1700 AC 04/22 PO 1645 Clindamycin 600 MG IQ8 04/21 1600 AC 04/22 Dextrose/Water 50 ML IV 1645 Epoetin Jeyson 6,000 UNIT TU TH SAT 04/23 1000 AC IV Folic Acid 1 MG DAILY 04/20 1000 AC 04/22 PO 1237 Heparin Sodium 5,000 UNIT Q8 04/20 1730 AC 04/22 (Porcine) SC 1444 Insulin Aspart 0 TIDAC 04/22 1700 AC SC Labetalol HCl 10 MG ONCE ONE 04/22 0330 DC 04/22 IV 04/22 0331 0322 Lorazepam 1 MG Q12 04/22 1000 AC 04/22 PO 1237 Lorazepam 1.5 MG Q8 04/21 1400 DC 04/22 PO 0520 Lorazepam 0 Q1P PRN 04/20 1730 AC IV Lorazepam 0 Q1P PRN 04/19 1830 AC 04/19 IV 2225 Morphine Sulfate 2 MG Q6P PRN 04/19 1915 AC 04/20 IV 2207 Multivitamins 1 TAB DAILY 04/22 1000 AC 04/22 PO 1237 Multivitamins 1 TAB DAILY 04/20 1000 AC 04/22 PO 1237 Omeprazole 40 MG DAILY AC 04/21 0700 AC 04/22 PO 0604 Ondansetron HCl 4 MG Q8P PRN 04/19 191 AC IV Oxycodone/ 1 TAB Q6P PRN 04/19 191 AC Acetaminophen PO Potassium Chloride 40 MEQ 0845 04/22 0845 DC 04/22 PO 04/22 0846 0857 Thiamine HCl 100 MG DAILY 04/20 1000 AC 04/22 PO 1237 Last 24 Hrs of Lab/Ozzie Results Last 24 Hrs of Labs/Mics: Laboratory Tests 04/22/17 0600: Troponin I Cancelled 04/22/17 0352: Anion Gap 17 H, Estimated GFR 6 L, Glucose 192 H, Calcium 7.2 L, Phosphorus 5.1 H, Magnesium 1.9, Total Bilirubin 0.9, AST 32, ALT 35, Troponin I 0.14 *H, Albumin 3.1 L, CBC w Diff NO MAN DIFF REQ, RBC 3.65 L, MCV 68.2 L, MCH 22.3 L, RDW 15.0 H, MPV 7.6, Gran % 88.4 H, Lymphocytes % 5.3 L, Monocytes % 6.1, Eosinophils % 0.1, Basophils % 0.1, Absolute Granulocytes 9.2 H, Absolute Lymphocytes 0.5 L, Absolute Monocytes 0.6, Absolute Eosinophils 0, Absolute Basophils 0, PUBS MCHC 32.6 L 04/21/17 1740: Anion Gap 20 H, Estimated GFR 7 L, BUN/Creatinine Ratio 5.9 L, Calcium 7.4 L , Phosphorus 5.0 H Lines/Diet/Fluids Lines: dialysis catheter (non tunneled) Assessment/Plan Assessment: 46-year-old man with past medical history of hypertension, hyperlipidemia, type 2 diabetes mellitus and alcohol abuse. PROBLEM LIST 1. Acute kidney injury likely renal ? illicit drug use vs metformin toxicity. s /p Dialysis treatment 2. Severe Anion gap metabolic acidosis. improving 3. Hyperkalemia/Hyponatremia/Hypomagnesemia/ Hypocalcemia/Hyperphosphatemia-- improving 6. Positive troponins. No EKG changes. Likely demand ischemia and poor renal clearance 9. History of diabetes, hypertension 10. History of alcohol abuse. Drinks 6-7 glasses of vodka everyday 11. Aspiration pneumonia on clindamycin (PEN allergic) 12. Microcytic anemia--stable PLAN * GM hold * dialysis today and tomorrow * Nephro consult appreciated * Closer monitoring of electrolytes * Continue clindamycin aspiration PNA * Cont TRC nebs * CIWA protocol and ativan scheduled and as needed per CIWA. will taper ativan to 1 mg Q12 today * Cardio consult appreciated * GI and DVT prophylaxis * Diabetic diet * Full code Problem List: 1. Acute renal failure Pain Ratin Pain Location: none Pain Goal: Pain 4 or less Pain Plan: tylenol Tomorrow's Labs & Rationales: cbc,bep DVT/Prophylaxis: mechanical, pharmacological
[2017-04-23] VITALS (10 sets, daily range): BP systolic 164–192; BP diastolic 50–98
--- NOTE | 2017-04-23 07:51 | PN- Housestaff ---
See Addendum Subjective Follow-up For: Etoh Detox Dialysis HTN Electrolyte abnormalities Subjective: Have seen and examined the patient. The patient was sitting in his bed. He did not have any complaint at this moment. He wanted to know how his kidney function was looking. He does not complain of chest pain, palpitations or shortness of breath. I was paged last night and informed about his increased blood pressure. He was tachypneic as well. Amlodipine 5 mg was given. We can go up that dose, 5 mg more if it remains persistently high. We will follow up with cardiology Review of Systems Constitutional: Reports: see HPI, chills. Objective Last 24 Hrs of Vital Signs/I&O Vital Signs Date Time Temp Pulse Resp B/P B/P Pulse O2 O2 Flow FiO2 Mean Ox Delivery Rate 04/23 0729 184/76 04/23 0600 99.0 20 190/70 04/23 0551 99.0 192/68 04/23 0540 99.0 112 20 192/68 92 Nasal 3.0L Cannula 04/23 0400 99.6 112 20 170/70 04/23 0323 99.6 112 20 170/70 92 Nasal 3.0L Cannula 04/22 2249 99.2 117 18 152/70 90 Nasal 3.0L Cannula 04/22 2000 98.9 102 18 136/70 04/22 1733 93 Nasal 2.0L Cannula 04/22 1731 99.3 121 18 160/70 93 Nasal 3.0L Cannula 04/22 1600 98.0 100 20 140/80 98 Room Air 04/22 1415 94 Nasal 2.0L Cannula 04/22 1237 100 160/70 04/22 0800 98.9 100 20 130/70 04/22 0800 96 Nasal 2.0L Cannula 04/22 0800 98.9 100 20 130/70 96 Nasal 2.0L Cannula Intake & Output 04/23 0800 04/23 0000 04/22 1600 Intake Total 250 260 420 Output Total 1999 Balance 250 260 -1580 Intake, IV 20 Intake, Oral 250 240 420 Output, 2000 Dialysate Output, Urine 0 Patient 244 lb Weight Weight Standing Scale Measurement Method Physical Exam General Appearance: Alert, Oriented X3, Cooperative, No Acute Distress Skin: No Rashes, No Breakdown HEENT: Atraumatic Neck: Supple Cardiovascular: Regular Rate, Normal S1, Normal S2 Lungs: Clear to Auscultation, Normal Air Movement Abdomen: Normal Bowel Sounds, Soft Neurological: Normal Speech Current Medications: Current Medications Sig/Edward Start time Last Medication Dose Route Stop Time Status Admin Acetaminophen 650 MG Q6P PRN 04/19 1915 AC PO Albuterol Sulfate 3 ML Q4P PRN 04/21 0800 AC 04/22 INH 1732 Amlodipine Besylate 5 MG ONCE ONE 04/23 0545 DC 04/23 PO 04/23 0546 0551 Amlodipine Besylate 10 MG DAILY 04/20 1000 DC 04/22 PO 1237 Atorvastatin Calcium 10 MG 1700 04/23 1700 AC PO Calcitriol 1 MCG TUES THURS SAT PRN 04/21 1000 AC IV Calcium Carbonate 1,250 MG WITH MEALS 04/20 1700 AC 04/22 PO 1645 Clindamycin 600 MG IQ8 04/21 1600 AC 04/23 Dextrose/Water 50 ML IV 0044 Epoetin Jeyson 6,000 UNIT TUES THURS SAT 04/23 1000 AC IV Folic Acid 1 MG DAILY 04/20 1000 AC 04/22 PO 1237 Heparin Sodium 5,000 UNIT Q8 04/20 1730 AC 04/23 (Porcine) SC 0552 Insulin Aspart 0 TIDAC 04/22 1700 AC 04/22 SC 1658 Lorazepam 1 MG ONE TIME ONE 04/23 1200 AC PO 04/23 1201 Lorazepam 1 MG ONE TIME ONE 04/23 0000 DC 04/23 PO 04/23 0001 0044 Lorazepam 1 MG Q12 04/22 1000 DC 04/22 PO 1237 Lorazepam 1.5 MG Q8 04/21 1400 DC 04/22 PO 0520 Lorazepam 0 Q1P PRN 04/20 1730 AC IV Lorazepam 0 Q1P PRN 04/19 1830 DC 04/19 IV 2225 Morphine Sulfate 2 MG Q6P PRN 04/19 1915 AC 04/20 IV 2207 Multivitamins 1 TAB DAILY 04/22 1000 AC 04/22 PO 1237 Multivitamins 1 TAB DAILY 04/20 1000 AC 04/22 PO 1237 Omeprazole 40 MG DAILY AC 04/21 0700 AC 04/23 PO 0554 Ondansetron HCl 4 MG Q8P PRN 04/19 191 AC IV Oxycodone/ 1 TAB Q6P PRN 04/19 1915 AC Acetaminophen PO Potassium Chloride 40 MEQ .STK-MED ONE 04/22 0856 DC PO 04/22 0857 Potassium Chloride 40 MEQ 0845 04/22 0845 DC 04/22 PO 04/22 0846 0857 Thiamine HCl 100 MG DAILY 04/20 1000 AC 04/22 PO 1237 Assessment/Plan Assessment: This is 46-year-old man with past medical history of hypertension, hyperlipidemia, type 2 diabetes mellitus and alcohol abuse with c/of a cough productive of yellowish sputum and some blood x several months that has been worse over last several weeks.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 -Anion Gap 34 H, Estimated GFR 4 L, BUN/Creatinine Ratio 6.1 L, Glucose 133 H, Calcium 6.7 L, Phosphorus 10.8 H Creatine Kinase 590 H, -Urine Clarity HAZY H,Urine Protein >=300 H Urine WBC 3-5 H, Ur Epithelial Cells RENAL H, Granular Casts MANY H, Urine Hemoglobin LARGE H, Urine Glucose 100 H -CXR: No acute cardiopulmonary process. -CT ABD & PELVIS W/O IV CONTRAST: 1. No evidence of obstructive uropathy. 2. Otherwise, no acute abnormalities in the abdomen or pelvis. -Initial ED EKG: normal intervals, normal p-waves, normal sinus rhythm, rate ( 104), nonspecific ST T wave changes. He was admitted to ICU 04/19 for close monitoring and is now being transferred to general medicine floor. Acute Renal failure--Dialysis today Most likely Renal. illicit drug use vs metformin toxicity. Patient denied metformin overdose. Please not that he was on 1000 mg twice a day metformin that was recently started by his PCP. Nephro was called for consult. Dr. Adair saw him next day. He had emergent placement of Ced dialysis catheter (non-tunneled) by IR and was started on dialysis. He got dialysis on , , and today. Plan is for HD again today His creatinine came down from 13 to 9.5. Records were obtained from [facility] as he was admitted there in December 2016 for alcohol detox. Per records pateint kidney functions were completely normal in December. -Utox obtained here is negative. Nephro also recommended to do SPEP, MELODY, ANCA, C3,C4, Hep BSag, Hep C Ab. -Hep Panel is negative. -MELODY negative. -SPEP, ANCA, C3,C4 still pending. Severe Anion gap metabolic acidosis most likely secondary to alcohol intoxication and metformin induced lactic acidosis Anion gap was 34 on admission. Improving after dialysis. Today anion gap lab value pending Electrolyte derangements (Hyperkalemia/Hyponatremia/Hypomagnesemia/ Hypocalcemia /Hyperphosphatemia) Electrolytes are getting better with dialysis. He was also put on fluid restriction initially 800 and then later 1000 mL/day. He was also started on culture globulin IV calcitriol by picker and packer. Sodium improved from 116 to 124. Potassium improved from 5.5 to 3.6. Calcium improved from 6.7 to 7.2. Phosph 10.8 to 5.1. Mg was 0.8 on admission and was repleted cONTINUE TO MONITOR AND REPLETE Positive troponins. Trops 0.10 on admission and trended up to 0.11. Peak trop was 0.15. No EKG changes. Cardio was consulted. Per cardio its likely demand ischemia and poor renal clearance. Patient is stable from a cardiac standpoint. ECHO was ordered. No further cardiac workup was recommended. ECHO: CONCLUSIONS Mild concentric left ventricular hypertrophy. Normal left ventricular ejection fraction visually estimated at >65. No obvious regional wall motion abnormalities.No significant valve abnormalities. Physiologic valvular regurgitation. The left atrium is normal in size. History of diabetes Metformin held He was started on NovoLog insulin sliding scale. HTN and Tachycardia lisinopril and hydrochlorothiazide were held on admission. Amlodipine was continuedin ICU. I was paged early in the morning about high blood pressure and tachycardia. I started him on amlodipine 5 MG. We can increase the dose and give him 5 more if the blood pressure persistently remains high. We will follow -up with cardiology regarding hypertension and tachycardia. However his tachycardia has been improving since he last got here. He is on his last day of alcohol detox. 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 Drinks 6-7 glasses of vodka everyday. He was put on CIWA protocol and started on scheduled and IV Ativan as needed per CIWA. He is going to finish his taper tomorrow with 1 mg Ativan Po x 1. CIWA has been in range of 8-5. Aspiration pneumonia (PEN allergic) Patient remained afebrile throughout hospitalization. His WBC count was elevated. He had persistent productive cough bringing up clear phlegm. No episode of hemoptysis in hospital. CT chest was done on 04/20/17. CT CHEST WO IV CONTRAST Patchy multifocal groundglass opacification. The appearance is nonspecific,but consider infectious or inflammatory etiologies. There are neither pleural effusions nor pneumothoraces.Hepatic steatosis.Healing lateral right ninth rib fracture.Small hiatal hernia. Microcytic anemia H/H remained stable. He was started on Epogen by Neophro with Dialysis. Assessment/Plan: * dialysis today * Nephro on board * Closer monitoring of electrolytes * Continue clindamycin for aspiration PNA * Cont TRC nebs * CIWA protocol and ativan scheduled and as needed per CIWA. taper finishing tomorrow. Please dose 1 mg x 1 tomorrow. * SPEP, ANCA, C3,C4 still pending. Problem List: 1. Acute renal failure Pain Ratin Pain Location: n/a Pain Goal: Pain 4 or less Pain Plan: n Tomorrow's Labs & Rationales: renal parameters
[2017-04-23 09:46] LABS: ABSOLUTE BASOPHIL COUNT 0 /CUMM (0.0-0.2); ABSOLUTE EOSINOPHIL COUNT 0 /CUMM (0.0-0.7); ABSOLUTE LYMPH COUNT 0.8 /CUMM (1.2-3.4); ABSOLUTE MONOCYTE COUNT 0.6 /CUMM (0.10-0.60); BASOPHIL % 0.1 % (0.0-2.0); EOSINOPHIL % 0.2 % (0-5); HEMATOCRIT 26.4 % (42-52); MEAN CORPUSCULAR HGB CONC 32.5 G/DL (33.0-37.0); MEAN CORPUSCULAR VOLUME 67.8 FL (80.0-94.0); MEAN PLATELET VOLUME 7.2 FL (7.4-10.4); PLATELET COUNT 212 /CUMM (130-400); RBC DISTRIBUTION WIDTH 14.7 % (11.5-14.5); RED BLOOD CELL CT 3.89 /CUMM (4.70-6.10); WHITE BLOOD CELL COUNT 10.4 /CUMM (4.8-10.8)
[2017-04-23 10:35] LABS: GRANULOCYTE % 86.6 % (42.2-75.2)
--- NOTE | 2017-04-23 11:06 | PN- Nephrology ---
Assessment/Plan Assessment: SOHAIL on dialysis. tolerating well. Cr 8 still dialysis dependent Suggestion: Plan dialysis again Tuesday Subjective Subjective: Pt on dialysis. tolerating well Objective Vital Signs and I&Os M NAD 184/76 112 99 Lungs clear Cor RRR Abd soft Ext tr edema Results Pertinent Lab Results: 131 / 91 / 52 / 4.1 / 26 / 8.1\
[2017-04-24] VITALS (9 sets, daily range): BP systolic 146–180; BP diastolic 54–90
--- NOTE | 2017-04-24 12:50 | PN- Att Addend ---
Attending Addendum Attending Brief Note Patient seen and examined this morning. Plan of care discussed with the medical team and the patient. Available lab work and radiology test reports were reviewed. Last night his BP was noted to be elevated in the range of 190 systolic with persistent tachycardia. Labetalol was added to his regimen. Patient does not report any new symptoms. He denies any chest pain difficulty breathing fever chills nausea vomiting or abdominal pain. He overall appears comfortable. His last hemodialysis was yesterday. Vital Signs Date Time Temp Pulse Resp B/P B/P Pulse O2 O2 Flow FiO2 Mean Ox Delivery Rate 04/24 1244 98.1 91 16 146/74 91 Room Air 04/24 1159 94 Room Air Room Air 04/24 0914 98.2 104 20 180/90 04/24 0913 98.2 104 20 180/90 04/24 0800 98.2 104 20 180/90 04/24 0800 93 Nasal 3.0L Cannula 04/24 0623 98.3 100 20 170/54 91 Nasal Cannula 04/24 0000 Nasal 3.0L Cannula 04/23 2236 98.8 109 19 168/50 90 Nasal Cannula 04/23 2232 109 168/50 04/23 2116 113 164/50 04/23 2114 97 Nasal 3.0L Cannula 04/23 1600 Nasal 3.0L Cannula 04/23 1428 99.0 119 20 174/50 93 04/23 1410 184/98 04/23 1325 122 192/50 04/23 1257 98.9 122 24 192/50 92 Nasal 3.0L Cannula Intake & Output 04/24 1600 16 0800 04/24 0000 Intake Total 175 350 Output Total Balance 175 350 Intake, IV 125 100 Intake, Oral 50 250 Patient 242 lb Weight Weight Chair scale Measurement Method Exam: General: Patient awake alert oriented without any distress ; skin appears pale CVS: S1 plus S2 without any murmur or gallops Chest: Few scattered crepitation without any wheeze. There is no respiratory distress. Abdomen: Soft nontender, bowel sound present, no guarding or rebound RESIDENTIAL COLLECTIONS: Awake alert oriented without any focal neuro deficit and follows command appropriately Extremities: No edema; no clubbing or cyanosis noted Laboratory Tests 04/23 1537 Coagulation PT Cancelled INR Cancelled Lab work from yesterday shows WBC count of 10.4 and hematocrit 26.4. Sodium is 131 and potassium is 4.1. Assessment and plan * Acute renal failure- patient underwent hemodialysis yesterday. As per nephrology note he remains dialysis dependent. His creatinine has decreased to 8.5. Next next dialysis is planned for Tuesday. We'll recheck creatinine with dialysis. * Anion gap metabolic acidosis * Alcohol abuse and alcohol intoxication * Hyperkalemia * Hyponatremia * Hypomagnesemia * History of diabetes * Persistent tachycardia- of unclear etiology; patient is being followed up by cardiology * Positive troponin- more probably is from acute renal failure * Uncontrolled hypertension- improved with a blood pressure at noon today 146/ 76. Continue current medications; patient may need further increase his labetalol dose.
--- NOTE | 2017-04-24 13:34 | PN- Housestaff ---
LALIT LORENZANA,SARANYA 04/24/17 1333: Subjective Follow-up For: Hypertensive urgency Persistent dry cough with ? Aspiration pneumonia EtOH withdrawal New onset CKD on dialysis Electrolyte derangements Subjective: Overnight or no acute events. This morning Mr. Nichols states that he feels significantly better than he did 24 hours ago. He does complain of a persistent dry cough but denies any fevers, chills, sore throat, chest pain, palpitations, nausea, abdominal pain. The patient was noted to be significantly hypertensive yesterday evening. Prior to admission the patient was on lisinopril and HCTZ along with amlodipine 5 mg daily. He was started on amlodipine 10 mg daily and labetalol 100 mg BID for blood pressure control. Review of Systems Constitutional: Denies: see HPI. EENTM: Denies: no symptoms. Cardiovascular: Denies: no symptoms. Respiratory: Reports: see HPI, cough. Gastrointestinal: Denies: no symptoms. Musculoskeletal: Denies: no symptoms. Skin: Denies: no symptoms. Objective Last 24 Hrs of Vital Signs/I&O Vital Signs Date Time Temp Pulse Resp B/P B/P Pulse O2 O2 Flow FiO2 Mean Ox Delivery Rate 04/24 1600 Room Air 04/24 1600 98.9 96 16 178/62 16 1557 98.4 96 20 178/62 91 04/24 1244 98.1 91 16 146/74 91 Room Air 04/24 1200 98.4 96 20 178/62 04/24 1159 94 Room Air Room Air 04/24 1000 98.1 91 16 146/74 04/24 0914 98.2 104 20 180/90 04/24 0913 98.2 104 20 180/90 04/24 0800 98.2 104 20 180/90 04/24 0800 93 Nasal 3.0L Cannula 04/24 0623 98.3 100 20 170/54 91 Nasal Cannula 04/24 0000 Nasal 3.0L Cannula 04/23 2236 98.8 109 19 168/50 90 Nasal Cannula 04/232 109 168/50 04/23 2116 113 164/50 04/23 2114 97 Nasal 3.0L Cannula Intake & Output 04/24 1600 /16 0800 04/24 0000 Intake Total 554 175 350 Output Total 100 Balance 454 175 350 Intake, IV 74 125 100 Intake, Oral 480 50 250 Number 2 Bowel Movements Output, Urine 100 Patient 242 lb Weight Weight Chair scale Measurement Method Current Medications: Current Medications Sig/Edward Start time Last Medication Dose Route Stop Time Status Admin Acetaminophen 650 MG Q6P PRN 04/19 1915 AC PO Albuterol Sulfate 3 ML Q4P PRN 04/21 0800 AC 04/22 INH 1732 Amlodipine Besylate 10 MG DAILY 04/24 1000 AC 04/24 PO 0913 Atorvastatin Calcium 10 MG 1700 04/23 1700 AC 04/24 PO 1615 Benzonatate 100 MG TID 04/24 1400 AC 04/24 PO 2124 Calcitriol 1 MCG TUES THURS SAT PRN 04/21 1000 AC IV Calcium Carbonate 1,250 MG WITH MEALS 04/20 1700 AC 04/24 PO 1615 Clindamycin 600 MG IQ8 04/21 1600 AC 04/24 Dextrose/Water 50 ML IV 1615 Epoetin Jeyson 6,000 UNIT TUES THURS SAT 04/23 1000 AC 04/23 IV 1331 Folic Acid 1 MG DAILY 04/20 1000 AC 04/24 PO 0914 Heparin Sodium 5,000 UNIT Q8 04/20 1730 AC 04/24 (Porcine) SC 2124 Insulin Aspart 0 TIDAC 04/22 1700 AC 04/24 SC 1706 Labetalol HCl 50 MG ONCE ONE 04/24 1715 DC 04/24 PO 04/24 1716 1833 Labetalol HCl 100 MG BID 04/23 2200 AC 04/24 PO 2124 Lorazepam 0 Q1P PRN 04/20 1730 AC IV Morphine Sulfate 2 MG Q6P PRN 04/19 1915 AC 04/20 IV 2207 Multivitamins 1 TAB DAILY 04/22 1000 AC 04/24 PO 0914 Multivitamins 1 TAB DAILY 04/20 1000 AC 04/24 PO 0914 Omeprazole 40 MG DAILY AC 04/21 0700 AC 04/24 PO 0601 Ondansetron HCl 4 MG Q8P PRN 04/19 1915 AC IV Oxycodone/ 1 TAB Q6P PRN 04/19 1915 AC Acetaminophen PO Thiamine HCl 100 MG DAILY 04/20 1000 AC 04/24 PO 0914 Assessment/Plan Assessment: This is 46-year-old man with past medical history of hypertension, hyperlipidemia, type 2 diabetes mellitus and alcohol abuse with c/of a cough productive of yellowish sputum and some blood x several months that has been worse over last several weeks.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 -Anion Gap 34 H, Estimated GFR 4 L, BUN/Creatinine Ratio 6.1 L, Glucose 133 H, Calcium 6.7 L, Phosphorus 10.8 H Creatine Kinase 590 H, -Urine Clarity HAZY H,Urine Protein >=300 H Urine WBC 3-5 H, Ur Epithelial Cells RENAL H, Granular Casts MANY H, Urine Hemoglobin LARGE H, Urine Glucose 100 H -CXR: No acute cardiopulmonary process. -CT ABD & PELVIS W/O IV CONTRAST: 1. No evidence of obstructive uropathy. 2. Otherwise, no acute abnormalities in the abdomen or pelvis. -Initial ED EKG: normal intervals, normal p-waves, normal sinus rhythm, rate ( 104), nonspecific ST T wave changes. He was admitted to ICU 04/19 for close monitoring and is now being transferred to general medicine floor. Acute Renal failure--Dialysis today Most likely Renal. illicit drug use vs metformin toxicity. Patient denied metformin overdose. Please not that he was on 1000 mg twice a day metformin that was recently started by his PCP. Nephro was called for consult. Dr. Adair saw him next day. He had emergent placement of Ced dialysis catheter (non-tunneled) by IR and was started on dialysis. He got dialysis on 11, 12, 13 and 15. Creatinine today has come down to 7. Records were obtained from [facility] as he was admitted there in December 2016 for alcohol detox. Per records pateint kidney functions were completely normal in December. -Utox obtained here is negative. Nephro also recommended to do SPEP, MELODY, ANCA, C3,C4, Hep BSag, Hep C Ab. -Hep Panel is negative. -MELODY negative. -SPEP, ANCA, C3,C4 still pending. Severe Anion gap metabolic acidosis- resolved most likely secondary to alcohol intoxication and metformin induced lactic acidosis Anion gap was 34 on admission. Improving after dialysis. Today anion gap has closed. Electrolyte derangements (Hyperkalemia/Hyponatremia/Hypomagnesemia/ Hypocalcemia /Hyperphosphatemia) Electrolytes are getting better with dialysis. He was also put on fluid restriction initially 800 and then later 1000 mL/day. He was also started on culture globulin IV calcitriol by engine repairer production. Sodium improved from 116 to 124. Potassium improved from 5.5 to 3.6. Calcium improved from 6.7 to 7.2. Phosph 10.8 to 5.1. Mg was 0.8 on admission and was repleted cONTINUE TO MONITOR AND REPLETE K+: 4.5 today Na: 136 improving Ca: 8.5 Phos: 4.0 M.1 Positive troponins. Trops 0.10 on admission and trended up to 0.11. Peak trop was 0.15. No EKG changes. Cardio was consulted. Per cardio its likely demand ischemia and poor renal clearance. Patient is stable from a cardiac standpoint. ECHO was ordered. No further cardiac workup was recommended. ECHO: CONCLUSIONS Mild concentric left ventricular hypertrophy. Normal left ventricular ejection fraction visually estimated at >65. No obvious regional wall motion abnormalities.No significant valve abnormalities. Physiologic valvular regurgitation. The left atrium is normal in size. History of diabetes Metformin held He was started on NovoLog insulin sliding scale. HTN and Tachycardia lisinopril and hydrochlorothiazide were held on admission. Amlodipine was continuedin ICU. I was paged early in the morning about high blood pressure and tachycardia. I started him on amlodipine 5 MG. We can increase the dose and give him 5 more if the blood pressure persistently remains high. We will follow -up with cardiology regarding hypertension and tachycardia. However his tachycardia has been improving since he last got here. He is on his last day of alcohol detox. - pt was hypertensive today. Pt received 10mg amlodipine and 100mg labetelol this morning. Pt was still hypertensive in the afternoon requiring an additional 50mg of labetelol. 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 Drinks 6-7 glasses of vodka everyday. He was put on CIWA protocol and started on scheduled and IV Ativan as needed per CIWA. He is going to finish his taper tomorrow with 1 mg Ativan Po x 1. CIWA has been in range of 8-5. Aspiration pneumonia (PEN allergic) Patient remained afebrile throughout hospitalization. His WBC count was elevated. He had persistent productive cough bringing up clear phlegm. No episode of hemoptysis in hospital. CT chest was done on 04/20/17. CT CHEST WO IV CONTRAST Patchy multifocal groundglass opacification. The appearance is nonspecific,but consider infectious or inflammatory etiologies. There are neither pleural effusions nor pneumothoraces.Hepatic steatosis.Healing lateral right ninth rib fracture.Small hiatal hernia. - pt is on clindamycin 600mg q8h - consider pulm consult in AM - TRC Microcytic anemia H/H remained stable. He was started on Epogen by Neophro with Dialysis. Code: Full DVT PPx: Heparin SQ Diet: Consistent Carbohydrate 2 Problem List: 1. Hyponatremia 2. Acute renal failure 3. Hyperkalemia Pain Ratin Pain Location: None Pain Goal: Remain pain free Pain Plan: None Tomorrow's Labs & Rationales: LAVELL Ferro 04/24/17 1338: Subjective Follow-up For: Hypertensive urgency Persistent dry cough with ? Aspiration pneumonia EtOH withdrawal New onset CKD on dialysis Electrolyte derangements Subjective: Interval history: Overnight or no acute events. This morning Mr. Nichols states that he feels significantly better than he did 24 hours ago. He does complain of a persistent dry cough but denies any fevers, chills, sore throat, chest pain, palpitations, nausea, abdominal pain. The patient was noted to be significantly hypertensive yesterday evening. Prior to admission the patient was on lisinopril and HCTZ along with amlodipine 5 mg daily. He was started on amlodipine 10 mg daily and labetalol 100 mg BID for blood pressure control. Review of Systems Constitutional: Reports: see HPI. EENTM: Reports: no symptoms. Cardiovascular: Reports: no symptoms. Respiratory: Reports: see HPI. Gastrointestinal: Reports: see HPI. Musculoskeletal: Reports: no symptoms. Skin: Reports: no symptoms. Objective Last 24 Hrs of Vital Signs/I&O Vital Signs Date Time Temp Pulse Resp B/P B/P Pulse O2 O2 Flow FiO2 Mean Ox Delivery Rate 04/24 1244 98.1 91 16 146/74 91 Room Air 04/24 1159 94 Room Air Room Air 04/24 0914 98.2 104 20 180/90 04/24 0913 98.2 104 20 180/90 04/24 0800 98.2 104 20 180/90 04/24 0800 93 Nasal 3.0L Cannula 04/24 0623 98.3 100 20 170/54 91 Nasal Cannula 04/24 0000 Nasal 3.0L Cannula 04/23 2236 98.8 109 19 168/50 90 Nasal Cannula 04/23 2232 109 168/50 04/23 2116 113 164/50 04/23 2114 97 Nasal 3.0L Cannula 04/23 1600 Nasal 3.0L Cannula 04/23 1428 99.0 119 20 174/50 93 04/23 1410 184/98 Intake & Output 04/24 1600 04/24 0800 04/24 0000 Intake Total 175 350 Output Total Balance 175 350 Intake, IV 125 100 Intake, Oral 50 250 Patient 242 lb Weight Weight Chair scale Measurement Method Physical Exam General Appearance: Alert, Cooperative, No Acute Distress Skin: abscess catheter in place in the right upper chest wall with no evidence of erythema or fluctuance around the entry point. Her with a clean Tegaderm at this point Skin Temp/Moisture Exam: Warm/Dry HEENT: EOMI, Mucous Membr. moist/pink Cardiovascular: Regular Rate, Normal S1, Normal S2 Lungs: Clear to Auscultation, Normal Air Movement Abdomen: Normal Bowel Sounds, Soft, No Tenderness Extremities: No Edema, Normal Pulses Vascular: Pulses Symmetrical Current Medications: Current Medications Sig/Edward Start time Last Medication Dose Route Stop Time Status Admin Acetaminophen 650 MG Q6P PRN 04/19 1915 AC PO Albuterol Sulfate 3 ML Q4P PRN 04/21 0800 AC 04/22 INH 1732 Amlodipine Besylate 10 MG DAILY 04/24 1000 AC 04/24 PO 0913 Atorvastatin Calcium 10 MG 1700 04/23 1700 DC PO Atorvastatin Calcium 10 MG 1700 04/23 1700 AC 04/23 PO 1735 Benzonatate 100 MG TID 04/24 1400 UNVr PO Calcitriol 1 MCG TUES THURS SAT PRN 04/21 1000 AC IV Calcium Carbonate 1,250 MG WITH MEALS 04/20 1700 AC 04/24 PO 1230 Clindamycin 600 MG IQ8 04/21 1600 AC 04/24 Dextrose/Water 50 ML IV 0820 Epoetin Jeyson 6,000 UNIT TUES THURS SAT 04/23 1000 AC 04/23 IV 1331 Folic Acid 1 MG DAILY 04/20 1000 AC 04/24 PO 0914 Heparin Sodium 5,000 UNIT Q8 04/20 1730 AC 04/24 (Porcine) SC 0600 Insulin Aspart 0 TIDAC 04/22 1700 AC 04/24 SC 1230 Labetalol HCl 100 MG BID 04/23 2200 AC 04/24 PO 0914 Lorazepam 0 Q1P PRN 04/20 1730 AC IV Morphine Sulfate 2 MG Q6P PRN 04/19 1915 AC 04/20 IV 2207 Multivitamins 1 TAB DAILY 04/22 1000 AC 04/24 PO 0914 Multivitamins 1 TAB DAILY 04/20 1000 AC 04/24 PO 0914 Omeprazole 40 MG DAILY AC 04/21 0700 AC 04/24 PO 0601 Ondansetron HCl 4 MG Q8P PRN 04/19 1915 AC IV Oxycodone/ 1 TAB Q6P PRN 04/19 1915 AC Acetaminophen PO Thiamine HCl 100 MG DAILY 04/20 1000 AC 04/24 PO 0914 Last 24 Hrs of Lab/Ozzie Results Last 24 Hrs of Labs/Mics: Laboratory Tests 04/23/17 1537: PT Cancelled, INR Cancelled
[2017-04-25 06:00] VITALS: BP 160/80
[2017-04-25 06:36] VITALS: BP 160/80
--- NOTE | 2017-04-25 07:14 | PN- Housestaff ---
Subjective Follow-up For: Hypertensive urgency Persistent dry cough New onset CKD on dialysis EtOH withdrawal Electrolyte derangements Complaints: no complaints Subjective: I seen and examined the patient. The patient was sitting comfortably in bed. He does not have any current complaints. He told me that his blood pressure went up. He said a new medication was given to him, which brought his blood pressure lower. He was coughing. It's a dry cough which does not produce any phlegm. He believes it is getting better. He is scheduled for dialysis today. Otherwise he does not have any complaints. He denies any shortness of breath chest pain or palpitations. He was started on amlodipine 10 mg daily and labetalol 100 mg BID for blood pressure control. He needed another 50 MG LABETALOL in the evening. Review of Systems Constitutional: Denies: chills, fever. Cardiovascular: Denies: chest pain, orthopena. Respiratory: Reports: cough. Gastrointestinal: Denies: abdominal pain, constipation, diarrhea. Genitourinary: Reports: no symptoms. Musculoskeletal: Reports: no symptoms. Objective Last 24 Hrs of Vital Signs/I&O Vital Signs Date Time Temp Pulse Resp B/P B/P Pulse O2 O2 Flow FiO2 Mean Ox Delivery Rate 04/25 0636 98.1 92 20 160/80 90 Room Air 04/25 0600 98.1 92 20 160/80 04/25 0000 94 Room Air 04/24 2216 98.3 96 19 152/78 94 Room Air 04/24 2128 93 Room Air 04/24 2124 93 152/78 04/24 1951 98.4 81 16 148/72 04/24 1833 91 168/70 04/24 1600 Room Air 04/24 1600 98.9 96 16 178/62 /16 1557 98.4 96 20 178/62 91 16 1244 98.1 91 16 146/74 91 Room Air 04/24 1200 98.4 96 20 178/62 16 1159 94 Room Air Room Air 04/24 1000 98.1 91 16 146/74 /16 0914 98.2 104 20 180/90 /16 0913 98.2 104 20 180/90 Intake & Output 04/25 1600 04/25 0800 04/25 0000 Intake Total 110 550 Output Total 250 250 Balance -140 300 Intake, IV 80 70 Intake, Oral 30 480 Number 0 Bowel Movements Output, Urine 250 250 Patient 239 lb Weight Weight Standing Scale Measurement Method Physical Exam General Appearance: Alert, Oriented X3, Cooperative Skin: No Rashes, No Breakdown, r chest wall Nimesh catheter intact and without any surrounding erythema Cardiovascular: Normal S1, Normal S2 Lungs: scatterd crepitations Abdomen: Normal Bowel Sounds, Soft, No Tenderness Neurological: Normal Speech Current Medications: Current Medications Sig/Edward Start time Last Medication Dose Route Stop Time Status Admin Acetaminophen 650 MG Q6P PRN 04/19 191 AC PO Albuterol Sulfate 3 ML Q4P PRN 04/21 0800 AC 04/22 INH 1732 Amlodipine Besylate 10 MG DAILY 04/24 1000 AC 04/24 PO 0913 Atorvastatin Calcium 10 MG 1700 04/23 1700 AC 04/24 PO 1615 Benzonatate 100 MG TID 04/24 1400 AC 04/24 PO 2124 Calcitriol 1 MCG TUES THURS SAT PRN 04/21 1000 AC IV Calcium Carbonate 1,250 MG WITH MEALS 04/20 1700 AC 04/24 PO 1615 Clindamycin 600 MG IQ8 04/21 1600 AC 04/25 Dextrose/Water 50 ML IV 0058 Epoetin Jeyson 6,000 UNIT TUES THURS SAT 04/23 1000 AC 04/23 IV 1331 Folic Acid 1 MG DAILY 04/20 1000 AC 04/24 PO 0914 Heparin Sodium 5,000 UNIT Q8 04/20 1730 AC 04/25 (Porcine) SC 0657 Insulin Aspart 0 TIDAC 04/22 1700 AC 04/25 SC 0814 Labetalol HCl 50 MG ONCE ONE 04/24 1715 DC 04/24 PO 04/24 1716 1833 Labetalol HCl 100 MG BID 04/23 2200 AC 04/24 PO 2124 Lorazepam 0 Q1P PRN 04/20 1730 AC IV Morphine Sulfate 2 MG Q6P PRN 04/19 1915 AC 04/20 IV 2207 Multivitamins 1 TAB DAILY 04/22 1000 AC 04/24 PO 0914 Multivitamins 1 TAB DAILY 04/20 1000 AC 04/24 PO 0914 Omeprazole 40 MG DAILY AC 04/21 0700 AC 04/25 PO 0657 Ondansetron HCl 4 MG Q8P PRN 04/19 191 AC IV Oxycodone/ 1 TAB Q6P PRN 04/19 191 AC Acetaminophen PO Thiamine HCl 100 MG DAILY 04/20 1000 AC 04/24 PO 0914 Assessment/Plan Assessment: This is 46-year-old man with past medical history of hypertension, hyperlipidemia, type 2 diabetes mellitus and alcohol abuse with c/of a cough productive of yellowish sputum and some blood x several months that has been worse over last several weeks.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 -Anion Gap 34 H, Estimated GFR 4 L, BUN/Creatinine Ratio 6.1 L, Glucose 133 H, Calcium 6.7 L, Phosphorus 10.8 H Creatine Kinase 590 H, -Urine Clarity HAZY H,Urine Protein >=300 H Urine WBC 3-5 H, Ur Epithelial Cells RENAL H, Granular Casts MANY H, Urine Hemoglobin LARGE H, Urine Glucose 100 H -CXR: No acute cardiopulmonary process. -CT ABD & PELVIS W/O IV CONTRAST: 1. No evidence of obstructive uropathy. 2. Otherwise, no acute abnormalities in the abdomen or pelvis. -Initial ED EKG: normal intervals, normal p-waves, normal sinus rhythm, rate ( 104), nonspecific ST T wave changes. He was admitted to ICU 04/19 for close monitoring and is now being transferred to general medicine floor. Acute Renal failure--Dialysis today Most likely Renal. illicit drug use vs metformin toxicity. Patient denied metformin overdose. Please not that he was on 1000 mg twice a day metformin that was recently started by his PCP. Nephro was called for consult. Dr. Adair saw him next day. He had emergent placement of Ced dialysis catheter (non-tunneled) by IR and was started on dialysis. He got dialysis on , , and ,17 Records were obtained from [facility] as he was admitted there in December 2016 for alcohol detox. Per records pateint kidney functions were completely normal in December. -Utox obtained here is negative. Nephro also recommended to do SPEP, MELODY, ANCA, C3,C4, Hep BSag, Hep C Ab. -Hep Panel is negative. -MELODY, ANCA, C3,C4 negative. -SPEP,still pending -has dialysis scheduled for today. Creatinine today is 8.9 - As per Nephro he remains dialysis dependent. His creatinine has decreased but not yet at his baseline.Continue hemodialysis. his schedule will be changed to Tuesday and Tuesday HTN and Tachycardia lisinopril and hydrochlorothiazide were held on admission. Amlodipine was continuedin ICU. - Over the weekend, Pt received 10mg amlodipine and 100mg labetelol in the morning. Pt was still hypertensive in the afternoon requiring an additional 50mg of labetelol. -His blood pressure today early in the morning was 160/ 80 and his heart rate was 92 -We have increased labetalol dose to 200 mg twice a day -avoid nephrotoxic medications Electrolyte derangements (Hyperkalemia/Hyponatremia/Hypomagnesemia/ Hypocalcemia /Hyperphosphatemia) Electrolytes are getting better with dialysis. He was also put on fluid restriction initially 800 and then later 1000 mL/day. He was also started on culture globulin IV calcitriol by foam rubber molder. CONTINUE TO MONITOR AND REPLETE K+: 4.1 today Na: 135 Ca: 9.2 Severe Anion gap metabolic acidosis- resolved most likely secondary to alcohol intoxication and metformin induced lactic acidosis Anion gap was 34 on admission. Improving after dialysis. Today anion gap has closed. Positive troponins. Trops 0.10 on admission and trended up to 0.11. Peak trop was 0.15. No EKG changes. Cardio was consulted. Per cardio its likely demand ischemia and poor renal clearance. Patient is stable from a cardiac standpoint. ECHO was ordered. No further cardiac workup was recommended. ECHO: CONCLUSIONS Mild concentric left ventricular hypertrophy. Normal left ventricular ejection fraction visually estimated at >65. No obvious regional wall motion abnormalities.No significant valve abnormalities. Physiologic valvular regurgitation. The left atrium is normal in size. History of diabetes Metformin held He was started on NovoLog insulin sliding scale. 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 Drinks 6-7 glasses of vodka everyday. He was put on CIWA protocol and started on scheduled and IV Ativan as needed per CIWA. He is going to finish his taper tomorrow with 1 mg Ativan Po x 1. CIWA has been in range of 8-5. Aspiration pneumonia (PEN allergic) Patient remained afebrile throughout hospitalization. His WBC count was elevated. He had persistent productive cough bringing up clear phlegm. No episode of hemoptysis in hospital. CT chest was done on 04/20/17. CT CHEST WO IV CONTRAST Patchy multifocal groundglass opacification. The appearance is nonspecific,but consider infectious or inflammatory etiologies. There are neither pleural effusions nor pneumothoraces.Hepatic steatosis.Healing lateral right ninth rib fracture.Small hiatal hernia. Patient keeps complaining of dry cough without any phlegm. He believes that this is getting better. There was no respiratory distress. - pt is on clindamycin 600mg q8h Microcytic anemia H/H remained stable. He was started on Epogen by Neophro with Dialysis. Code: Full DVT PPx: Heparin SQ Diet: Consistent Carbohydrate 2 Problem List: 1. Acute renal failure 2. Hyperkalemia 3. Hyponatremia Pain Ratin Pain Location: n/a Pain Goal: Pain 4 or less Pain Plan: acetaminophen [id number] prn Tomorrow's Labs & Rationales: cbc bep n/a Pain Goal: Pain 4 or less Pain Plan: acetaminophen [id number] prn Tomorrow's Labs & Rationales: cbc bep
--- NOTE | 2017-04-25 08:42 | PN- Nephrology ---
Assessment/Plan Assessment: 1. SOHAIL or Acute Renal failure: making more urine. May need to consider a closed renal Biopsy. 2. Hyponatremia: sodium 136 on Tuesday, repeat with HD 3. Met Acid: corrected with HD 4. H/O DM- this is not Diabetic Nephropathy, his serum creatinine was 0.9 in December. 5. H/O etoh abuse 6. Volume status- still with bibasilar crackles Suggestion: 1. Change dialysis schedule to [facility] 2. Await SPEP, ANCA note MELODY negative Subjective Subjective: Patient seems winded. says he is voiding more Objective Vital Signs and I&Os Vital Signs Date Time Temp Pulse Resp B/P B/P Pulse O2 O2 Flow FiO2 Mean Ox Delivery Rate 04/25 0636 98.1 92 20 160/80 90 Room Air 04/25 0600 98.1 92 20 160/80 04/25 0000 94 Room Air 04/24 2216 98.3 96 19 152/78 94 Room Air 04/24 2128 93 Room Air 04/24 2124 93 152/78 / 1951 98.4 81 16 148/72 / 1833 91 168/70 07/16 1600 Room Air /16 1600 98.9 96 16 178/62 07/16 1557 98.4 96 20 178/62 91 07/16 1244 98.1 91 16 146/74 91 Room Air 07/16 1200 98.4 96 20 178/62 07/16 1159 94 Room Air Room Air 07/16 1000 98.1 91 16 146/74 07/16 0914 98.2 104 20 180/90 /16 0913 98.2 104 20 180/90 Intake & Output 04/25 1600 17 0400 /16 1600 /16 0400 04/23 1600 04/23 0400 Intake Total 110 550 729 350 810 260 Output Total 250 250 100 Balance -140 300 629 350 810 260 Intake, IV 80 70 199 100 80 20 Intake, Oral 30 480 530 250 730 240 Number 0 2 1 Bowel Movements Output, Urine 250 250 100 Patient 239 lb 242 lb 241 lb Weight Weight Standing Scale Chair scale Standing Scale Measurement Method Physical Exam: General Appearance: well developed/nourished, seems mildly winded, alert Head: atraumatic Ears, Nose, Throat: normal ENT inspection Neck: R IJ HD cath Respiratory: mild respiratory distress, quiet respiration, bibasilar rhonchi/ rales. Cardiovascular: regular rate/rhythm Abdomen: soft, non-tender, no organomegaly Extremities: trace edema Neurologic/Psychiatric: awake, alert, moving all extremities Current Medications: Current Medications Sig/Edward Start time Last Medication Dose Route Stop Time Status Admin Acetaminophen 650 MG Q6P PRN 04/19 1915 AC PO Albuterol Sulfate 3 ML Q4P PRN 04/21 0800 AC 04/22 INH 1732 Amlodipine Besylate 10 MG DAILY 04/24 1000 AC 04/24 PO 0913 Atorvastatin Calcium 10 MG 1700 04/23 1700 AC 04/24 PO 1615 Benzonatate 100 MG TID 04/24 1400 AC 04/24 PO 2124 Calcitriol 1 MCG TUES THURS SAT PRN 04/21 1000 AC IV Calcium Carbonate 1,250 MG WITH MEALS 04/20 1700 AC 04/24 PO 1615 Clindamycin 600 MG IQ8 04/21 1600 AC 04/25 Dextrose/Water 50 ML IV 0058 Epoetin Jeyson 6,000 UNIT TUES THURS SAT 04/23 1000 AC 04/23 IV 1331 Folic Acid 1 MG DAILY 04/20 1000 AC 04/24 PO 0914 Heparin Sodium 5,000 UNIT Q8 04/20 1730 AC 04/25 (Porcine) SC 0657 Insulin Aspart 0 TIDAC 04/22 1700 AC 04/25 SC 0814 Labetalol HCl 50 MG ONCE ONE 04/24 1715 DC 04/24 PO 04/24 1716 1833 Labetalol HCl 100 MG BID 04/23 2200 AC 04/24 PO 2124 Lorazepam 0 Q1P PRN 04/20 1730 AC IV Morphine Sulfate 2 MG Q6P PRN 04/19 1915 AC 04/20 IV 2207 Multivitamins 1 TAB DAILY 04/22 1000 AC 04/24 PO 0914 Multivitamins 1 TAB DAILY 04/20 1000 AC 04/24 PO 0914 Omeprazole 40 MG DAILY AC 04/21 0700 AC 04/25 PO 0657 Ondansetron HCl 4 MG Q8P PRN 04/19 191 AC IV Oxycodone/ 1 TAB Q6P PRN 04/19 191 AC Acetaminophen PO Thiamine HCl 100 MG DAILY 04/20 1000 AC 04/24 PO 0914 Results Pertinent Lab Results: Laboratory Tests 04/24 04/23 04/23 1610 1537 0825 Chemistry Sodium (137 - 145 mmol/L) 136 L 131 L Potassium (3.5 - 5.1 mmol/L) 4.5 4.1 Chloride (98 - 107 mmol/L) 97 L 91 L Carbon Dioxide (22 - 30 mmol/L) 24 26 Anion Gap (5 - 16) 14 14 BUN (9 - 20 mg/dL) 56 H 52 H Creatinine (0.7 - 1.2 mg/dL) 7.0 *H 8.1 *H Estimated GFR (>60 ml/min) 9 L 7 L BUN/Creatinine Ratio (7 - 25 %) 8.0 6.4 L Glucose (65 - 99 mg/dL) 198 H Calcium (8.4 - 10.2 mg/dL) 8.5 Phosphorus (2.5 - 4.5 mg/dL) 4.0 Magnesium (1.6 - 2.3 mg/dL) 2.1 Coagulation PT Cancelled INR Cancelled Hematology CBC w Diff NO MAN DIFF REQ WBC (4.8 - 10.8 /CUMM) 10.4 RBC (4.70 - 6.10 /CUMM) 3.89 L Hgb (14.0 - 18.0 G/DL) 8.6 L Hct (42 - 52 %) 26.4 L MCV (80.0 - 94.0 FL) 67.8 L MCH (27.0 - 31.0 PG) 22.0 L RDW (11.5 - 14.5 %) 14.7 H Plt Count (130 - 400 /CUMM) 212 MPV (7.4 - 10.4 FL) 7.2 L Gran % (42.2 - 75.2 %) 86.6 H Lymphocytes % (20.5 - 51.1 %) 7.4 L Monocytes % (1.7 - 9.3 %) 5.7 Eosinophils % (0 - 5 %) 0.2 Basophils % (0.0 - 2.0 %) 0.1 Absolute Granulocytes (1.4 - 6.5 /CUMM) 9.0 H Absolute Lymphocytes (1.2 - 3.4 /CUMM) 0.8 L Absolute Monocytes (0.10 - 0.60 /CUMM) 0.6 Absolute Eosinophils (0.0 - 0.7 /CUMM) 0 Absolute Basophils (0.0 - 0.2 /CUMM) 0 PUBS MCHC (33.0 - 37.0 G/DL) 32.5 L 04/23 04/23 0715 0500 Chemistry Sodium Cancelled Potassium Cancelled Chloride Cancelled Carbon Dioxide Cancelled Anion Gap Cancelled BUN (9 - 20 mg/dL) 21 H Cancelled Creatinine Cancelled Glucose Cancelled Calcium Cancelled Phosphorus Cancelled Magnesium Cancelled Total Bilirubin Cancelled AST Cancelled ALT Cancelled Albumin Cancelled Hematology CBC w Diff Cancelled WBC Cancelled RBC Cancelled Hgb Cancelled Hct Cancelled MCV Cancelled MCH Cancelled RDW Cancelled Plt Count Cancelled MPV Cancelled PUBS MCHC Cancelled
[2017-04-25 09:43] LABS: ABSOLUTE BASOPHIL COUNT 0 /CUMM (0.0-0.2); ABSOLUTE EOSINOPHIL COUNT 0.1 /CUMM (0.0-0.7); ABSOLUTE GRANULOCYTE CT 11.1 /CUMM (1.4-6.5); ABSOLUTE LYMPH COUNT 1.2 /CUMM (1.2-3.4); ABSOLUTE MONOCYTE COUNT 0.6 /CUMM (0.10-0.60); BASOPHIL % 0.1 % (0.0-2.0); EOSINOPHIL % 0.7 % (0-5); GRANULOCYTE % 85.2 % (42.2-75.2); HEMATOCRIT 27.1 % (42-52); MEAN CORPUSCULAR HGB CONC 31.9 G/DL (33.0-37.0); MEAN CORPUSCULAR VOLUME 68.9 FL (80.0-94.0); MEAN PLATELET VOLUME 6.9 FL (7.4-10.4); PLATELET COUNT 263 /CUMM (130-400); RBC DISTRIBUTION WIDTH 15.4 % (11.5-14.5); RED BLOOD CELL CT 3.94 /CUMM (4.70-6.10)
--- NOTE | 2017-04-25 13:16 | PN- Att Addend ---
Attending Addendum Attending Brief Note Patient seen and examined this morning. Plan of care discussed with the medical team and the patient. Available lab work and radiology test reports were reviewed. Patient was seen during dialysis. Patient does not report any new symptoms. He denies any chest pain difficulty breathing fever chills nausea vomiting or abdominal pain. He overall appears comfortable. Vital Signs Date Time Temp Pulse Resp B/P B/P Pulse O2 O2 Flow FiO2 Mean Ox Delivery Rate 04/25 1017 95 Room Air 04/25 0636 98.1 92 20 160/80 90 Room Air 04/25 0600 98.1 92 20 160/80 04/25 0000 94 Room Air 04/24 2216 98.3 96 19 152/78 94 Room Air 04/24 2128 93 Room Air 04/24 2124 93 152/78 04/24 1951 98.4 81 16 148/72 04/24 1833 91 168/70 04/24 1600 Room Air 04/24 1600 98.9 96 16 178/62 04/24 1557 98.4 96 20 62 91 Intake & Output 04/25 1600 04/25 0800 04/25 0000 Intake Total 110 550 Output Total 250 250 Balance -140 300 Intake, IV 80 70 Intake, Oral 30 480 Number 0 Bowel Movements Output, Urine 250 250 Patient 239 lb Weight Weight Standing Scale Measurement Method Exam: General: Patient awake alert oriented without any distress ; skin appears pale CVS: S1 plus S2 without any murmur or gallops Chest: Few scattered crepitation without any wheeze. There is no respiratory distress. 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: Awake alert oriented without any focal neuro deficit and follows command appropriately Extremities: No edema; no clubbing or cyanosis noted Laboratory Tests 04/25 04/25 04/25 1226 0846 0600 Chemistry Sodium (137 - 145 mmol/L) 135 L Cancelled Potassium (3.5 - 5.1 mmol/L) 4.1 Cancelled Chloride (98 - 107 mmol/L) 97 L Cancelled Carbon Dioxide (22 - 30 mmol/L) 23 Cancelled Anion Gap (5 - 16) 15 Cancelled BUN (9 - 20 mg/dL) Pending 64 H Cancelled Creatinine (0.7 - 1.2 mg/dL) 8.9 *H Cancelled Estimated GFR (>60 ml/min) 6 L BUN/Creatinine Ratio (7 - 25 %) 7.2 Cancelled Glucose (65 - 99 mg/dL) 268 H Calcium (8.4 - 10.2 mg/dL) 9.2 Hematology CBC w Diff MAN DIFF ORDERED WBC (4.8 - 10.8 /CUMM) 13.0 H RBC (4.70 - 6.10 /CUMM) 3.94 L Hgb (14.0 - 18.0 G/DL) 8.6 L Hct (42 - 52 %) 27.1 L MCV (80.0 - 94.0 FL) 68.9 L MCH (27.0 - 31.0 PG) 22.0 L RDW (11.5 - 14.5 %) 15.4 H Plt Count (130 - 400 /CUMM) 263 MPV (7.4 - 10.4 FL) 6.9 L Gran % (42.2 - 75.2 %) 85.2 H Lymphocytes % (20.5 - 51.1 %) 9.5 L Monocytes % (1.7 - 9.3 %) 4.5 Eosinophils % (0 - 5 %) 0.7 Basophils % (0.0 - 2.0 %) 0.1 Absolute Granulocytes (1.4 - 6.5 /CUMM) 11.1 H Absolute Lymphocytes (1.2 - 3.4 /CUMM) 1.2 Absolute Monocytes (0.10 - 0.60 /CUMM) 0.6 Absolute Eosinophils (0.0 - 0.7 /CUMM) 0.1 Absolute Basophils (0.0 - 0.2 /CUMM) 0 Platelet Estimate (ADEQUATE) VERIFIED BY SMEAR Polychromasia 1+ Hypochromic-Microcytic 2+ Anisocytosis 1+ Microcytic Cells 2+ PUBS MCHC (33.0 - 37.0 G/DL) 31.9 L Serology Hep Bs Antibody (NONREACTIVE) NONREACTIVE 04/24 1610 Chemistry Sodium (137 - 145 mmol/L) 136 L Potassium (3.5 - 5.1 mmol/L) 4.5 Chloride (98 - 107 mmol/L) 97 L Carbon Dioxide (22 - 30 mmol/L) 24 Anion Gap (5 - 16) 14 BUN (9 - 20 mg/dL) 56 H Creatinine (0.7 - 1.2 mg/dL) 7.0 *H Estimated GFR (>60 ml/min) 9 L BUN/Creatinine Ratio (7 - 25 %) 8.0 Assessment and plan * Acute renal failure- patient currently under hemodialysis . As per nephrology note he remains dialysis dependent. His creatinine has decreased but not yet at his baseline. * Anion gap metabolic acidosis * Alcohol abuse and alcohol intoxication * Hyperkalemia * Hyponatremia * Hypomagnesemia * History of diabetes * Persistent tachycardia- of unclear etiology; patient is being followed up by cardiology * Positive troponin- more probably is from acute renal failure * Uncontrolled hypertension- improved Plan * Continue hemodialysis; as per nephrology note his schedule will be changed to Tuesday and Tuesday * Recheck creatinine tomorrow * Monitor BP closely; increase labetalol dose 200 mg twice a day * Follow-up SPEP and and ANCA Results
[2017-04-25 13:28] VITALS: BP 120/80
[2017-04-25 16:00] VITALS: BP 164/72
[2017-04-25 20:00] VITALS: BP 158/74
[2017-04-25 21:43] VITALS: BP 125/80
[2017-04-26] VITALS: BP 125/80
[2017-04-26 06:00] VITALS: BP 152/80
[2017-04-26 07:17] VITALS: BP 152/80
--- NOTE | 2017-04-26 07:47 | PN- Housestaff ---
Subjective Follow-up For: New onset CKD on dialysis Electrolyte derangements Hypertensive urgency Persistent dry cough EtOH withdrawal Complaints: no complaints Subjective: I have seen and examined the patient. The patient was sitting comfortably in the bed. He was watching television. He told me that he is feeling much better. He had a good night sleep last night after many days. His cough is improving. Today however in the morning he had some dry cough with little bit of white phlegm. Otherwise he does not have any complaints. He denies any shortness of breath chest pain or palpitations. Review of Systems Constitutional: Reports: no symptoms. Denies: chills, fever. Cardiovascular: Denies: chest pain, edema, palpitations. Respiratory: Denies: cough, hemoptysis, short of breath, stridor. Gastrointestinal: Denies: bloating, constipation, diarrhea. Genitourinary: Reports: no symptoms. Objective Last 24 Hrs of Vital Signs/I&O Vital Signs Date Time Temp Pulse Resp B/P B/P Pulse O2 O2 Flow FiO2 Mean Ox Delivery Rate 04/26 717 99.1 88 20 152/80 96 Room Air 04/25 2147 87 160/80 04/25 2143 98.7 85 20 125/80 96 04/25 2000 97.8 71 16 158/74 04/25 1600 Room Air 04/25 1600 98.4 79 16 164/72 04/25 1343 164/72 04/25 1342 164/72 04/25 1328 98.7 66 20 120/80 96 04/25 1017 95 Room Air Intake & Output 04/26 0800 04/26 0000 04/25 1600 Intake Total 550 200 Output Total 300 250 Balance 250 -50 Intake, IV 70 Intake, Oral 480 200 Output, Urine 300 250 Patient 238 lb 235 lb Weight Weight Standing Scale Measurement Method Physical Exam General Appearance: Alert, Oriented X3, Cooperative, No Acute Distress Skin: No Rashes, No Breakdown, R IJ HD cath, Nimesh catheter site intact and without any surrounding erythema Neck: Supple Cardiovascular: Normal S1, Normal S2 Lungs: Normal Air Movement, bibasilar ronchi Abdomen: Normal Bowel Sounds, Soft, No Tenderness Neurological: Normal Speech Extremities: No Tenderness/Swelling Current Medications: Current Medications Sig/Edward Start time Last Medication Dose Route Stop Time Status Admin Acetaminophen 650 MG Q6P PRN 04/19 1915 AC PO Albuterol Sulfate 3 ML Q4P PRN 04/21 0800 DC 04/22 INH 1732 Amlodipine Besylate 10 MG DAILY 04/24 1000 AC 04/25 PO 1342 Atorvastatin Calcium 10 MG 1700 04/23 1700 AC 04/25 PO 1727 Benzonatate 100 MG TID 04/24 1400 AC 04/25 PO 2146 Calcitriol 1 MCG TUES THURS SAT PRN 04/21 1000 AC IV Calcium Carbonate 1,250 MG WITH MEALS 04/20 1700 AC 04/25 PO 1729 Clindamycin 600 MG IQ8 04/21 1600 AC 04/26 Dextrose/Water 50 ML IV 0000 Epoetin Jeyson 6,000 UNIT TUES THURS SAT 04/23 1000 AC 04/23 IV 1331 Folic Acid 1 MG DAILY 04/20 1000 AC 04/25 PO 1342 Heparin Sodium 5,000 UNIT Q8 04/20 1730 AC 04/26 (Porcine) SC 0554 Insulin Aspart 0 TIDAC 04/22 1700 AC 04/25 SC 1726 Labetalol HCl 200 MG BID 04/25 2200 AC 04/25 PO 2147 Labetalol HCl 100 MG BID 04/23 2200 DC 04/25 PO 1343 Lorazepam 0 Q1P PRN 04/20 1730 AC IV Melatonin 5 MG ONCE ONE 04/25 2215 DC 04/25 PO 04/25 2216 2224 Morphine Sulfate 2 MG Q6P PRN 04/19 1915 AC 04/20 IV 2207 Multivitamins 1 TAB DAILY 04/22 1000 AC 04/25 PO 1343 Multivitamins 1 TAB DAILY 04/20 1000 AC 04/25 PO 1343 Omeprazole 40 MG DAILY AC 04/21 0700 AC 04/26 PO 0554 Ondansetron HCl 4 MG Q8P PRN 04/19 191 AC IV Oxycodone/ 1 TAB Q6P PRN 04/19 191 AC Acetaminophen PO Patient Medication 1 ED .STK-MED ONE 04/25 1406 DC Teaching ED 04/25 1407 Thiamine HCl 100 MG DAILY 04/20 1000 AC 04/25 PO 1343 Assessment/Plan Assessment: This is 46-year-old man with past medical history of hypertension, hyperlipidemia, type 2 diabetes mellitus and alcohol abuse with c/of a cough productive of yellowish sputum and some blood x several months that has been worse over last several weeks.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 -Anion Gap 34 H, Estimated GFR 4 L, BUN/Creatinine Ratio 6.1 L, Glucose 133 H, Calcium 6.7 L, Phosphorus 10.8 H Creatine Kinase 590 H, -Urine Clarity HAZY H,Urine Protein >=300 H Urine WBC 3-5 H, Ur Epithelial Cells RENAL H, Granular Casts MANY H, Urine Hemoglobin LARGE H, Urine Glucose 100 H -CXR: No acute cardiopulmonary process. -CT ABD & PELVIS W/O IV CONTRAST: 1. No evidence of obstructive uropathy. 2. Otherwise, no acute abnormalities in the abdomen or pelvis. -Initial ED EKG: normal intervals, normal p-waves, normal sinus rhythm, rate ( 104), nonspecific ST T wave changes. He was admitted to ICU 04/19 for close monitoring and is now being transferred to general medicine floor. Acute Renal failure--Dialysis today Most likely Renal. illicit drug use vs metformin toxicity. Patient denied metformin overdose. Please not that he was on 1000 mg twice a day metformin that was recently started by his PCP. Nephro was called for consult. Dr. Adair saw him next day. He had emergent placement of Ced dialysis catheter (non-tunneled) by IR and was started on dialysis. He got dialysis on , , and ,17 Records were obtained from [facility] as he was admitted there in December 2016 for alcohol detox. Per records pateint kidney functions were completely normal in December. -Utox obtained here is negative. -Hep Panel,MELODY, ANCA, C3,C4 ,SPEP negative. -As per Nephro he remains dialysis dependent. His creatinine has decreased but not yet at his baseline.His schedule has been changed to Tuesday and Tuesday * Continue hemodialysis * Creatinine today is 6.0 * Recheck labs only with HD HTN and Tachycardia lisinopril and hydrochlorothiazide were held on admission. Amlodipine was continued. We have increased labetalol dose to 200 mg twice a day -avoid nephrotoxic medications.His BP 152/80 and HR 88 today * Continue Labetalol 200mg BID Electrolyte derangements (Hyperkalemia/Hyponatremia/Hypomagnesemia/ Hypocalcemia /Hyperphosphatemia) Electrolytes are getting better with dialysis. He was also put on fluid restriction initially 800 and then later 1000 mL/day. He was also started on culture globulin IV calcitriol by manager diversity.K+: 4.2 Na: 135 today Ca: 9.2 * CONTINUE TO MONITOR AND REPLETE History of diabetes Metformin held * on NovoLog insulin sliding scale. Aspiration pneumonia (PEN allergic) Patient remained afebrile throughout hospitalization. His WBC count was elevated. He had persistent productive cough bringing up clear phlegm. No episode of hemoptysis in hospital. CT chest was done on 04/20/17. CT CHEST WO IV CONTRAST Patchy multifocal groundglass opacification. The appearance is nonspecific,but consider infectious or inflammatory etiologies. There are neither pleural effusions nor pneumothoraces.Hepatic steatosis.Healing lateral right ninth rib fracture.Small hiatal hernia. Patient keeps complaining of dry cough without any phlegm. He believes that this is getting better. There was no respiratory distress. * pt is on clindamycin 600mg q8h Microcytic anemia H/H remained stable. * on Epogen by Neophro with Dialysis. Severe Anion gap metabolic acidosis- resolved most likely secondary to alcohol intoxication and metformin induced lactic acidosis Anion gap was 34 on admission. Improving after dialysis. Today anion gap has closed. Positive troponins. Trops 0.10 on admission and trended up to 0.11. Peak trop was 0.15. No EKG changes. Cardio was consulted. Per cardio its likely demand ischemia and poor renal clearance. Patient is stable from a cardiac standpoint. ECHO was ordered. No further cardiac workup was recommended. ECHO: CONCLUSIONS Mild concentric left ventricular hypertrophy. Normal left ventricular ejection fraction visually estimated at >65. No obvious regional wall motion abnormalities.No significant valve abnormalities. Physiologic valvular regurgitation. The left atrium is normal in size. 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 Drinks 6-7 glasses of vodka everyday. He was put on CIWA protocol and started on scheduled and IV Ativan as needed per CIWA. Inpatient treatment finished. Code: Full DVT PPx: Heparin SQ Diet: Consistent Carbohydrate 2 Problem List: 1. Acute renal failure 2. Hyperkalemia Pain Ratin Pain Location: none Pain Goal: Pain 4 or less Pain Plan: acetaminophen q6 650 prn Tomorrow's Labs & Rationales: cbc bep DVT/Prophylaxis: Heparin SQ none Pain Goal: Pain 4 or less Pain Plan: acetaminophen q6 650 prn Tomorrow's Labs & Rationales: cbc bep DVT/Prophylaxis: Heparin SQ
--- NOTE | 2017-04-26 08:21 | PN- Att Addend ---
Attending Addendum Attending Brief Note Patient seen and examined this morning. Plan of care discussed with the medical team and the patient. Available lab work and radiology test reports were reviewed. Patient is sitting in chair and doing word puzzles. His last HD was yesterday. Patient does not report any new symptoms. He denies any chest pain difficulty breathing fever chills nausea vomiting or abdominal pain. He overall appears comfortable. Vital Signs Date Time Temp Pulse Resp B/P B/P Pulse O2 O2 Flow FiO2 Mean Ox Delivery Rate 04/26 0805 88 152/80 04/26 0804 88 152/80 04/26 0717 99.1 88 20 152/80 96 Room Air 04/25 2147 87 160/80 04/25 2143 98.7 85 20 125/80 96 04/25 2000 97.8 71 16 158/74 04/25 1600 Room Air 04/25 1600 98.4 79 16 164/72 04/25 1343 164/72 04/25 1342 164/72 04/25 1328 98.7 66 20 120/80 96 04/25 1017 95 Room Air Intake & Output 04/26 1600 04/26 0800 04/26 0000 Intake Total 550 Output Total 300 Balance 250 Intake, IV 70 Intake, Oral 480 Output, Urine 300 Patient 238 lb Weight Weight Standing Scale Measurement Method Exam: General: Patient awake alert oriented without any distress ; skin appears pale CVS: S1 plus S2 without any murmur or gallops Chest: Few scattered crepitation without any wheeze. There is no respiratory distress. 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: Awake alert oriented without any focal neuro deficit and follows command appropriately Extremities: No edema; no clubbing or cyanosis noted Laboratory Tests 04/26 04/25 0740 1226 Chemistry Sodium (137 - 145 mmol/L) 135 L Potassium (3.5 - 5.1 mmol/L) 4.2 Chloride (98 - 107 mmol/L) 97 L Carbon Dioxide (22 - 30 mmol/L) 24 Anion Gap (5 - 16) 13 BUN (9 - 20 mg/dL) 48 H 26 H Creatinine (0.7 - 1.2 mg/dL) 6.0 *H Estimated GFR (>60 ml/min) 10 L BUN/Creatinine Ratio (7 - 25 %) 8.0 Hematology CBC w Diff NO MAN DIFF REQ WBC (4.8 - 10.8 /CUMM) 12.3 H RBC (4.70 - 6.10 /CUMM) 3.78 L Hgb (14.0 - 18.0 G/DL) 8.4 L Hct (42 - 52 %) 26.0 L MCV (80.0 - 94.0 FL) 68.8 L MCH (27.0 - 31.0 PG) 22.3 L RDW (11.5 - 14.5 %) 15.8 H Plt Count (130 - 400 /CUMM) 254 MPV (7.4 - 10.4 FL) 6.8 L Gran % (42.2 - 75.2 %) 82.0 H Lymphocytes % (20.5 - 51.1 %) 12.1 L Monocytes % (1.7 - 9.3 %) 4.8 Eosinophils % (0 - 5 %) 0.8 Basophils % (0.0 - 2.0 %) 0.3 Absolute Granulocytes (1.4 - 6.5 /CUMM) 10.0 H Absolute Lymphocytes (1.2 - 3.4 /CUMM) 1.5 Absolute Monocytes (0.10 - 0.60 /CUMM) 0.6 Absolute Eosinophils (0.0 - 0.7 /CUMM) 0.1 Absolute Basophils (0.0 - 0.2 /CUMM) 0 PUBS MCHC (33.0 - 37.0 G/DL) 32.4 L ANCA and SPEP negative. Assessment and plan * Acute renal failure- patient currently under hemodialysis . As per nephrology note he remains dialysis dependent. His creatinine has decreased but not yet at his baseline. He likley will need permanent HD. * Anion gap metabolic acidosis * Alcohol abuse and alcohol intoxication * Hyperkalemia * Hyponatremia * Hypomagnesemia * History of diabetes * Persistent tachycardia- of unclear etiology; patient is being followed up by cardiology * Positive troponin- more probably is from acute renal failure * Uncontrolled hypertension- improved with increased dose labetalol Plan * Continue hemodialysis; as per nephrology note his schedule will be changed to Tuesday and Tuesday * Recheck labs only with HD * Monitor BP closely; continue labetalol dose 200 mg twice a day
[2017-04-26 08:54] LABS: ABSOLUTE BASOPHIL COUNT 0 /CUMM (0.0-0.2); ABSOLUTE EOSINOPHIL COUNT 0.1 /CUMM (0.0-0.7); ABSOLUTE LYMPH COUNT 1.5 /CUMM (1.2-3.4); ABSOLUTE MONOCYTE COUNT 0.6 /CUMM (0.10-0.60); BASOPHIL % 0.3 % (0.0-2.0); EOSINOPHIL % 0.8 % (0-5); MEAN CORPUSCULAR HGB 22.3 PG (27.0-31.0); MEAN CORPUSCULAR HGB CONC 32.4 G/DL (33.0-37.0); MEAN CORPUSCULAR VOLUME 68.8 FL (80.0-94.0); MEAN PLATELET VOLUME 6.8 FL (7.4-10.4); PLATELET COUNT 254 /CUMM (130-400); RBC DISTRIBUTION WIDTH 15.8 % (11.5-14.5); RED BLOOD CELL CT 3.78 /CUMM (4.70-6.10); WHITE BLOOD CELL COUNT 12.3 /CUMM (4.8-10.8)
--- NOTE | 2017-04-26 11:26 | PN- Nephrology ---
Assessment/Plan Assessment: 1. SOHAIL or Acute Renal failure: making more urine. His Anka is negative. His serum protein electrophoresis is negative. Historically, the only thing of which he reports was the initiation of therapy with lisinopril Tuesday before the April. He reports feeling out of sorts and somewhat dizzy. A CVS blood pressure reading was 105. He describes this as being lower than it has been in years. This would point to his having a hemodynamic insult. The other possibility would be an interstitial nephritis. May need to consider a closed renal Biopsy. 2. Hyponatremia: sodium 136 on Tuesday, repeat with HD 3. Met Acid: corrected with HD 4. H/O DM- this is not Diabetic Nephropathy, his serum creatinine was 0.9 in December. 5. H/O etoh abuse 6. Volume status-still with lower extremity edema but his lungs are clear and he does not appear to be dyspneic. Suggestion: 1. Change dialysis schedule to [facility] 2. Would limit blood draws to dialysis days to be sent by the dialysis nurse only. If his dialysis need proves to be permanent, his arms will need to be preserved for placement of a fistula. Subjective Subjective: Patient is sitting up. Denies any nausea vomiting. No shortness of breath today. He generally appears more comfortable. Objective Vital Signs and I&Os Vital Signs Date Time Temp Pulse Resp B/P B/P Pulse O2 O2 Flow FiO2 Mean Ox Delivery Rate 04/26 0805 88 152/80 07 0804 88 152/80 04/26 0717 99.1 88 20 152/80 96 Room Air 04/26 0600 99.1 88 20 152/80 /18 0000 98.7 85 20 125/80 /18 0000 96 Room Air 04/25 2147 87 160/80 /17 2143 98.7 85 20 125/80 96 04/25 2000 97.8 71 16 158/74 / 1600 Room Air 04/25 1600 98.4 79 16 164/72 04/25 1343 164/72 04/25 1342 164/72 04/25 1328 98.7 66 20 120/80 96 Intake & Output 04/26 1600 04/26 0400 04/25 1600 04/25 0400 04/24 1600 04/24 0400 Intake Total 130 550 310 550 729 350 Output Total 325 300 500 250 100 Balance -195 250 -190 300 629 350 Intake, IV 80 70 80 70 199 100 Intake, Oral 50 480 230 480 530 250 Number 0 0 2 Bowel Movements Output, Urine 325 300 500 250 100 Patient 238 lb 235 lb 242 lb Weight Weight Standing Scale Standing Scale Chair scale Measurement Method Physical Exam: General Appearance: well developed/nourished, seems mildly winded, alert Head: atraumatic Ears, Nose, Throat: normal ENT inspection Neck: R IJ HD cath in place. No masses, no tenderness. Respiratory: Clearer today to auscultation and percussion. Cardiovascular: regular rate/rhythm Abdomen: soft, non-tender, no organomegaly Extremities: Still is some lower extremity edema Neurologic/Psychiatric: awake, alert, moving all extremities Current Medications: Current Medications Sig/Edward Start time Last Medication Dose Route Stop Time Status Admin Acetaminophen 650 MG Q6P PRN 04/19 191 AC PO Amlodipine Besylate 10 MG DAILY 04/24 1000 AC 04/26 PO 0804 Atorvastatin Calcium 10 MG 1700 04/23 1700 AC 04/25 PO 1727 Benzonatate 100 MG TID 04/24 1400 AC 04/26 PO 0804 Calcitriol 1 MCG TUES THURS SAT PRN 04/21 1000 AC IV Calcium Carbonate 1,250 MG WITH MEALS 04/20 1700 AC 04/26 PO 0805 Clindamycin 600 MG IQ8 04/21 1600 AC 04/26 Dextrose/Water 50 ML IV 0804 Epoetin Jeyson 6,000 UNIT TUES THURS SAT 04/23 1000 AC 04/23 IV 1331 Folic Acid 1 MG DAILY 04/20 1000 AC 04/26 PO 0804 Heparin Sodium 5,000 UNIT Q8 04/20 1730 AC 04/26 (Porcine) FL 0554 Insulin Aspart 0 TIDAC 04/22 1700 AC 04/26 SC 0801 Labetalol HCl 200 MG BID 04/25 2200 AC 04/26 PO 0805 Labetalol HCl 100 MG BID 04/23 2200 DC 04/25 PO 1343 Lorazepam 0 Q1P PRN 04/20 1730 AC IV Melatonin 5 MG ONCE ONE 04/25 2215 DC 04/25 PO 04/25 221 2224 Morphine Sulfate 2 MG Q6P PRN 04/19 1915 AC 04/20 IV 2207 Multivitamins 1 TAB DAILY 04/22 1000 AC 04/26 PO 0804 Multivitamins 1 TAB DAILY 04/20 1000 AC 04/26 PO 0805 Omeprazole 40 MG DAILY AC 04/21 0700 AC 04/26 PO 0554 Ondansetron HCl 4 MG Q8P PRN 04/19 1915 AC IV Oxycodone/ 1 TAB Q6P PRN 04/19 1915 AC Acetaminophen PO Patient Medication 1 ED .STK-MED ONE 04/25 1406 [place] Teaching ED 04/25 1407 Thiamine HCl 100 MG DAILY 04/20 1000 AC 04/26 PO 0805 Results Pertinent Lab Results: Laboratory Tests 04/26 04/25 0740 1226 Chemistry Sodium (137 - 145 mmol/L) 135 L Potassium (3.5 - 5.1 mmol/L) 4.2 Chloride (98 - 107 mmol/L) 97 L Carbon Dioxide (22 - 30 mmol/L) 24 Anion Gap (5 - 16) 13 BUN (9 - 20 mg/dL) 48 H 26 H Creatinine (0.7 - 1.2 mg/dL) 6.0 *H Estimated GFR (>60 ml/min) 10 L BUN/Creatinine Ratio (7 - 25 %) 8.0 Hematology CBC w Diff NO MAN DIFF REQ WBC (4.8 - 10.8 /CUMM) 12.3 H RBC (4.70 - 6.10 /CUMM) 3.78 L Hgb (14.0 - 18.0 G/DL) 8.4 L Hct (42 - 52 %) 26.0 L MCV (80.0 - 94.0 FL) 68.8 L MCH (27.0 - 31.0 PG) 22.3 L RDW (11.5 - 14.5 %) 15.8 H Plt Count (130 - 400 /CUMM) 254 MPV (7.4 - 10.4 FL) 6.8 L Gran % (42.2 - 75.2 %) 82.0 H Lymphocytes % (20.5 - 51.1 %) 12.1 L Monocytes % (1.7 - 9.3 %) 4.8 Eosinophils % (0 - 5 %) 0.8 Basophils % (0.0 - 2.0 %) 0.3 Absolute Granulocytes (1.4 - 6.5 /CUMM) 10.0 H Absolute Lymphocytes (1.2 - 3.4 /CUMM) 1.5 Absolute Monocytes (0.10 - 0.60 /CUMM) 0.6 Absolute Eosinophils (0.0 - 0.7 /CUMM) 0.1 Absolute Basophils (0.0 - 0.2 /CUMM) 0 PUBS MCHC (33.0 - 37.0 G/DL) 32.4 L 04/25 04/25 04/24 0846 0600 1610 Chemistry Sodium (137 - 145 mmol/L) 135 L Cancelled 136 L Potassium (3.5 - 5.1 mmol/L) 4.1 Cancelled 4.5 Chloride (98 - 107 mmol/L) 97 L Cancelled 97 L Carbon Dioxide (22 - 30 mmol/L) 23 Cancelled 24 Anion Gap (5 - 16) 15 Cancelled 14 BUN (9 - 20 mg/dL) 64 H Cancelled 56 H Creatinine (0.7 - 1.2 mg/dL) 8.9 *H Cancelled 7.0 *H Estimated GFR (>60 ml/min) 6 L 9 L BUN/Creatinine Ratio (7 - 25 %) 7.2 Cancelled 8.0 Glucose (65 - 99 mg/dL) 268 H Calcium (8.4 - 10.2 mg/dL) 9.2 Hematology CBC w Diff MAN DIFF ORDERED Cancelled WBC (4.8 - 10.8 /CUMM) 13.0 H Cancelled RBC (4.70 - 6.10 /CUMM) 3.94 L Cancelled Hgb (14.0 - 18.0 G/DL) 8.6 L Cancelled Hct (42 - 52 %) 27.1 L Cancelled MCV (80.0 - 94.0 FL) 68.9 L Cancelled MCH (27.0 - 31.0 PG) 22.0 L Cancelled RDW (11.5 - 14.5 %) 15.4 H Cancelled Plt Count (130 - 400 /CUMM) 263 Cancelled MPV (7.4 - 10.4 FL) 6.9 L Cancelled Gran % (42.2 - 75.2 %) 85.2 H Lymphocytes % (20.5 - 51.1 %) 9.5 L Monocytes % (1.7 - 9.3 %) 4.5 Eosinophils % (0 - 5 %) 0.7 Basophils % (0.0 - 2.0 %) 0.1 Absolute Granulocytes (1.4 - 6.5 /CUMM) 11.1 H Absolute Lymphocytes (1.2 - 3.4 /CUMM) 1.2 Absolute Monocytes (0.10 - 0.60 /CUMM) 0.6 Absolute Eosinophils (0.0 - 0.7 /CUMM) 0.1 Absolute Basophils (0.0 - 0.2 /CUMM) 0 Platelet Estimate (ADEQUATE) VERIFIED BY SMEAR Polychromasia 1+ Hypochromic-Microcytic 2+ Anisocytosis 1+ Microcytic Cells 2+ PUBS MCHC (33.0 - 37.0 G/DL) 31.9 L Cancelled Serology Hep Bs Antibody (NONREACTIVE) NONREACTIVE 04/23 0717 Coagulation PT Cancelled INR Cancelled
[2017-04-26 14:23] VITALS: BP 122/70
[2017-04-26 22:42] VITALS: BP 140/62
[2017-04-27 06:30] VITALS: BP 134/76
--- NOTE | 2017-04-27 08:11 | PN- Att Addend ---
Attending Addendum Attending Brief Note Patient seen and examined this morning. Plan of care discussed with the medical team and the patient. Available lab work and radiology test reports were reviewed. Patient does not report any new symptoms. He denies any chest pain difficulty breathing fever chills nausea vomiting or abdominal pain. He overall appears comfortable. Pt going for HD today as per schedule. Vital Signs Date Time Temp Pulse Resp B/P B/P Pulse O2 O2 Flow FiO2 Mean Ox Delivery Rate 04/27 0630 98.4 71 20 134/76 96 Room Air 04/27 0000 95 04/26 2242 98.5 84 20 140/62 95 Room Air 04/26 2212 80 148/60 04/26 1423 98.7 80 20 122/70 93 Intake & Output 04/27 1600 04/27 0800 04/27 0000 Intake Total 190 60 Output Total 400 200 Balance -210 -140 Intake, IV 70 Intake, Oral 120 60 Number 1 Bowel Movements Output, Urine 400 200 Patient 241 lb Weight Weight Standing Scale Measurement Method Exam: General: Patient awake alert oriented without any distress CVS: S1 plus S2 without any murmur or gallops Chest: Few scattered crepitation without any wheeze. There is no respiratory distress. Abdomen: Soft nontender, bowel sound present, no guarding or rebound INVESTIGATIONS CHIEF: Awake alert oriented without any focal neuro deficit and follows command appropriately Extremities: No edema; no clubbing or cyanosis noted MADDY cath intact. Laboratory Tests 04/27 06 Chemistry Sodium (137 - 145 mmol/L) 135 L Potassium (3.5 - 5.1 mmol/L) 4.2 Chloride (98 - 107 mmol/L) 98 Carbon Dioxide (22 - 30 mmol/L) 20 L Anion Gap (5 - 16) 17 H BUN (9 - 20 mg/dL) 59 H Creatinine (0.7 - 1.2 mg/dL) 7.6 *H Estimated GFR (>60 ml/min) 8 L BUN/Creatinine Ratio (7 - 25 %) 7.8 Hematology CBC w Diff NO MAN DIFF REQ WBC (4.8 - 10.8 /CUMM) 12.5 H RBC (4.70 - 6.10 /CUMM) 3.81 L Hgb (14.0 - 18.0 G/DL) 8.5 L Hct (42 - 52 %) 26.3 L MCV (80.0 - 94.0 FL) 69.0 L MCH (27.0 - 31.0 PG) 22.2 L RDW (11.5 - 14.5 %) 15.8 H Plt Count (130 - 400 /CUMM) 232 MPV (7.4 - 10.4 FL) 6.9 L Gran % (42.2 - 75.2 %) 82.3 H Lymphocytes % (20.5 - 51.1 %) 11.8 L Monocytes % (1.7 - 9.3 %) 3.9 Eosinophils % (0 - 5 %) 1.7 Basophils % (0.0 - 2.0 %) 0.3 Absolute Granulocytes (1.4 - 6.5 /CUMM) 10.3 H Absolute Lymphocytes (1.2 - 3.4 /CUMM) 1.5 Absolute Monocytes (0.10 - 0.60 /CUMM) 0.5 Absolute Eosinophils (0.0 - 0.7 /CUMM) 0.2 Absolute Basophils (0.0 - 0.2 /CUMM) 0 PUBS MCHC (33.0 - 37.0 G/DL) 32.3 L ANCA and SPEP negative. Assessment and plan * Acute renal failure- case discussed with nephrology Dr. Reese today in detail. Patient is showing signs of improvement and he may come off dialysis at some point. Nephrology is considering renal biopsy. * Anion gap metabolic acidosis * Alcohol abuse and alcohol intoxication * Hyperkalemia * Hyponatremia * Hypomagnesemia * History of diabetes * Persistent tachycardia- of unclear etiology; patient is being followed up by cardiology * Positive troponin- more probably is from acute renal failure * Uncontrolled hypertension- improved with increased dose labetalol * Persistent elevated WBC count of unclear etiology without any clear source of infection Plan * Continue hemodialysis Tuesday for now. Nephrology to considering a biopsy * Recheck labs only with HD * Monitor BP closely; continue labetalol dose 200 mg twice a day
[2017-04-27 09:05] LABS: ABSOLUTE BASOPHIL COUNT 0 /CUMM (0.0-0.2); ABSOLUTE EOSINOPHIL COUNT 0.2 /CUMM (0.0-0.7); ABSOLUTE GRANULOCYTE CT 10.3 /CUMM (1.4-6.5); ABSOLUTE LYMPH COUNT 1.5 /CUMM (1.2-3.4); ABSOLUTE MONOCYTE COUNT 0.5 /CUMM (0.10-0.60); BASOPHIL % 0.3 % (0.0-2.0); EOSINOPHIL % 1.7 % (0-5); GRANULOCYTE % 82.3 % (42.2-75.2); HEMATOCRIT 26.3 % (42-52); MEAN CORPUSCULAR HGB 22.2 PG (27.0-31.0); MEAN CORPUSCULAR HGB CONC 32.3 G/DL (33.0-37.0); MEAN PLATELET VOLUME 6.9 FL (7.4-10.4); PLATELET COUNT 232 /CUMM (130-400); RBC DISTRIBUTION WIDTH 15.8 % (11.5-14.5); RED BLOOD CELL CT 3.81 /CUMM (4.70-6.10); WHITE BLOOD CELL COUNT 12.5 /CUMM (4.8-10.8)
--- NOTE | 2017-04-27 09:16 | PN- Nephrology ---
Assessment/Plan Assessment: 1. SOHAIL or Acute Renal failure: making more urine. His Anca was negative. His serum protein electrophoresis is negative. Historically, the only thing of which he reports was the initiation of therapy with lisinopril Tuesday before the April. He reports feeling out of sorts and somewhat dizzy. The other possibility would be an interstitial nephritis. This seems quite unlikely since the time course is completely wrong. May need to consider a closed renal Biopsy. 2. Hyponatremia: sodium 135 today. 3. Met Acid: corrected with HD 4. H/O DM- this is not Diabetic Nephropathy, his serum creatinine was 0.9 in December. 5. H/O etoh abuse 6. Volume status-still with lower extremity edema but his lungs are clear and he does not appear to be dyspneic. Ultrafiltration will still need to be considered given his physical exam suggestive of fluid overload. Suggestion: 1. Dialysis today will be 4 hours. A post-BUNs will need to be sent. 2. Consider closed renal biopsy. Subjective Subjective: Patient feels well. He offers no complaints area and seen with hemodialysis in progress. Objective Vital Signs and I&Os Vital Signs Date Time Temp Pulse Resp B/P B/P Pulse O2 O2 Flow FiO2 Mean Ox Delivery Rate 04/27 0800 Room Air 04/27 0630 98.4 71 20 134/76 96 Room Air 04/27 0000 95 04/26 2242 98.5 84 20 140/62 95 Room Air 04/26 2212 80 148/60 04/26 1423 98.7 80 20 122/70 93 Intake & Output 04/27 1600 04/27 0400 04/26 1600 04/26 0400 04/25 1600 04/25 0400 Intake Total 60 190 420 550 310 550 Output Total 200 400 525 300 500 250 Balance -140 -210 -105 250 -190 300 Intake, IV 70 130 70 80 70 Intake, Oral 60 120 290 480 230 480 Number 1 0 0 Bowel Movements Output, Urine 200 400 525 300 500 250 Patient 241 lb 238 lb 235 lb Weight Weight Standing Scale Standing Scale Standing Scale Measurement Method Physical Exam: General Appearance: well developed/nourished, seems mildly winded, alert Head: atraumatic Ears, Nose, Throat: normal ENT inspection Neck: R IJ HD cath in place. No masses, no tenderness. Respiratory: Clearer today to auscultation and percussion. Cardiovascular: regular rate/rhythm Abdomen: soft, non-tender, no organomegaly Extremities: Still is some lower extremity edema Neurologic/Psychiatric: awake, alert, moving all extremities Current Medications: Current Medications Sig/Edward Start time Last Medication Dose Route Stop Time Status Admin Acetaminophen 650 MG Q6P PRN 04/19 1915 AC PO Amlodipine Besylate 10 MG DAILY 04/24 1000 AC 04/26 PO 0804 Atorvastatin Calcium 10 MG 1700 04/23 1700 AC 04/26 PO 1635 Benzonatate 100 MG TID 04/24 1400 AC 04/26 PO 2208 Calcitriol 1 MCG MoWeFr@1000 PRN 04/26 1215 AC IV Calcitriol 1 MCG TUES THURS SAT PRN 04/21 1000 DC IV Calcium Carbonate 1,250 MG WITH MEALS 04/20 1700 AC 04/27 PO 0801 Clindamycin 600 MG IQ8 04/21 1600 AC 04/27 Dextrose/Water 50 ML IV 0026 Epoetin Jeyson 6,000 UNIT MoWeFr@1000 PRN 04/26 1215 AC IV Epoetin Jeyson 6,000 UNIT TUES THURS SAT 04/23 1000 DC 04/23 IV 1331 Folic Acid 1 MG DAILY 04/20 1000 AC 04/26 PO 0804 Heparin Sodium 5,000 UNIT Q8 04/20 1730 AC 04/27 (Porcine) SC 0616 Insulin Aspart 0 TIDAC 04/22 1700 AC 04/27 SC 0801 Labetalol HCl 200 MG BID 04/25 2200 AC 04/26 PO 2212 Lorazepam 0 Q1P PRN 04/20 1730 AC IV Melatonin 5 MG AT BEDTIME 04/27 0030 AC 04/27 PO 0038 Morphine Sulfate 2 MG Q6P PRN 04/19 191 DC 04/20 IV 2207 Multivitamins 1 TAB DAILY 04/22 1000 AC 04/26 PO 0804 Multivitamins 1 TAB DAILY 04/20 1000 AC 04/26 PO 0805 Omeprazole 40 MG DAILY AC 04/21 0700 AC 04/27 PO 0616 Ondansetron HCl 4 MG Q8P PRN 04/19 1915 AC IV Oxycodone/ 1 TAB Q6P PRN 04/19 1915 DC Acetaminophen PO Thiamine HCl 100 MG DAILY 04/20 1000 AC 04/26 PO 0805 Results Pertinent Lab Results: Laboratory Tests 04/27 04/26 0652 0740 Chemistry Sodium (137 - 145 mmol/L) 135 L 135 L Potassium (3.5 - 5.1 mmol/L) 4.2 4.2 Chloride (98 - 107 mmol/L) 98 97 L Carbon Dioxide (22 - 30 mmol/L) 20 L 24 Anion Gap (5 - 16) 17 H 13 BUN (9 - 20 mg/dL) 59 H 48 H Creatinine (0.7 - 1.2 mg/dL) 7.6 *H 6.0 *H Estimated GFR (>60 ml/min) 8 L 10 L BUN/Creatinine Ratio (7 - 25 %) 7.8 8.0 Hematology CBC w Diff NO MAN DIFF REQ NO MAN DIFF REQ WBC (4.8 - 10.8 /CUMM) 12.5 H 12.3 H RBC (4.70 - 6.10 /CUMM) 3.81 L 3.78 L Hgb (14.0 - 18.0 G/DL) 8.5 L 8.4 L Hct (42 - 52 %) 26.3 L 26.0 L MCV (80.0 - 94.0 FL) 69.0 L 68.8 L MCH (27.0 - 31.0 PG) 22.2 L 22.3 L RDW (11.5 - 14.5 %) 15.8 H 15.8 H Plt Count (130 - 400 /CUMM) 232 254 MPV (7.4 - 10.4 FL) 6.9 L 6.8 L Gran % (42.2 - 75.2 %) 82.3 H 82.0 H Lymphocytes % (20.5 - 51.1 %) 11.8 L 12.1 L Monocytes % (1.7 - 9.3 %) 3.9 4.8 Eosinophils % (0 - 5 %) 1.7 0.8 Basophils % (0.0 - 2.0 %) 0.3 0.3 Absolute Granulocytes (1.4 - 6.5 /CUMM) 10.3 H 10.0 H Absolute Lymphocytes (1.2 - 3.4 /CUMM) 1.5 1.5 Absolute Monocytes (0.10 - 0.60 /CUMM) 0.5 0.6 Absolute Eosinophils (0.0 - 0.7 /CUMM) 0.2 0.1 Absolute Basophils (0.0 - 0.2 /CUMM) 0 0 PUBS MCHC (33.0 - 37.0 G/DL) 32.3 L 32.4 L 04/25 04/25 04/25 1226 0846 0600 Chemistry Sodium (137 - 145 mmol/L) 135 L Cancelled Potassium (3.5 - 5.1 mmol/L) 4.1 Cancelled Chloride (98 - 107 mmol/L) 97 L Cancelled Carbon Dioxide (22 - 30 mmol/L) 23 Cancelled Anion Gap (5 - 16) 15 Cancelled BUN (9 - 20 mg/dL) 26 H 64 H Cancelled Creatinine (0.7 - 1.2 mg/dL) 8.9 *H Cancelled Estimated GFR (>60 ml/min) 6 L BUN/Creatinine Ratio (7 - 25 %) 7.2 Cancelled Glucose (65 - 99 mg/dL) 268 H Calcium (8.4 - 10.2 mg/dL) 9.2 Hematology CBC w Diff MAN DIFF ORDERED Cancelled WBC (4.8 - 10.8 /CUMM) 13.0 H Cancelled RBC (4.70 - 6.10 /CUMM) 3.94 L Cancelled Hgb (14.0 - 18.0 G/DL) 8.6 L Cancelled Hct (42 - 52 %) 27.1 L Cancelled MCV (80.0 - 94.0 FL) 68.9 L Cancelled MCH (27.0 - 31.0 PG) 22.0 L Cancelled RDW (11.5 - 14.5 %) 15.4 H Cancelled Plt Count (130 - 400 /CUMM) 263 Cancelled MPV (7.4 - 10.4 FL) 6.9 L Cancelled Gran % (42.2 - 75.2 %) 85.2 H Lymphocytes % (20.5 - 51.1 %) 9.5 L Monocytes % (1.7 - 9.3 %) 4.5 Eosinophils % (0 - 5 %) 0.7 Basophils % (0.0 - 2.0 %) 0.1 Absolute Granulocytes (1.4 - 6.5 /CUMM) 11.1 H Absolute Lymphocytes (1.2 - 3.4 /CUMM) 1.2 Absolute Monocytes (0.10 - 0.60 /CUMM) 0.6 Absolute Eosinophils (0.0 - 0.7 /CUMM) 0.1 Absolute Basophils (0.0 - 0.2 /CUMM) 0 Platelet Estimate (ADEQUATE) VERIFIED BY SMEAR Polychromasia 1+ Hypochromic-Microcytic 2+ Anisocytosis 1+ Microcytic Cells 2+ PUBS MCHC (33.0 - 37.0 G/DL) 31.9 L Cancelled Serology Hep Bs Antibody (NONREACTIVE) NONREACTIVE 04/24 1610 Chemistry Sodium (137 - 145 mmol/L) 136 L Potassium (3.5 - 5.1 mmol/L) 4.5 Chloride (98 - 107 mmol/L) 97 L Carbon Dioxide (22 - 30 mmol/L) 24 Anion Gap (5 - 16) 14 BUN (9 - 20 mg/dL) 56 H Creatinine (0.7 - 1.2 mg/dL) 7.0 *H Estimated GFR (>60 ml/min) 9 L BUN/Creatinine Ratio (7 - 25 %) 8.0
--- NOTE | 2017-04-27 11:45 | PN- Housestaff ---
Subjective Follow-up For: New onset CKD on dialysis Electrolyte derangements Hypertensive urgency Persistent dry cough EtOH withdrawal Complaints: no complaints Subjective: I have seen and examined the patient. The patient was getting ready to go down for dialysis. He does not have any current complaints. We will follow up with nephro today for a future renal biopsy plan and outpatient versus inpatient dialysis patient. Review of Systems Constitutional: Denies: chills, diaphoresis, fever. EENTM: Reports: no symptoms. Cardiovascular: Reports: edema. Denies: chest pain, orthopena. Respiratory: Denies: cough. Gastrointestinal: Denies: abdominal pain, diarrhea. Genitourinary: Reports: no symptoms. Objective Last 24 Hrs of Vital Signs/I&O Vital Signs Date Time Temp Pulse Resp B/P B/P Pulse O2 O2 Flow FiO2 Mean Ox Delivery Rate 04/27 1351 80 158/76 04/27 1350 80 158/76 04/27 1242 98.9 80 18 158/76 98 Room Air 04/27 0800 Room Air 04/27 0630 98.4 71 20 134/76 96 Room Air 04/27 0000 95 04/26 2242 98.5 84 20 140/62 95 Room Air 04/26 2212 80 148/60 04/26 1423 98.7 80 20 122/70 93 Intake & Output 04/27 1600 04/27 0800 04/27 0000 Intake Total 190 60 Output Total 400 200 Balance -210 -140 Intake, IV 70 Intake, Oral 120 60 Number 1 Bowel Movements Output, Urine 400 200 Patient 237 lb 241 lb Weight Weight Standing Scale Standing Scale Measurement Method Physical Exam General Appearance: Alert, Oriented X3, Cooperative Skin: No Rashes, No Rashes, No Breakdown, R IJ HD cath, Nimesh catheter site intact and without any surrounding erythema HEENT: Atraumatic Neck: Supple Cardiovascular: Normal S1, Normal S2, No Murmurs Lungs: Clear to Auscultation, Normal Air Movement Abdomen: Normal Bowel Sounds, Soft, No Tenderness Neurological: Normal Speech Current Medications: Current Medications Sig/Edward Start time Last Medication Dose Route Stop Time Status Admin Acetaminophen 650 MG Q6P PRN 04/19 1915 AC PO Amlodipine Besylate 10 MG DAILY 04/24 1000 AC 04/27 PO 1351 Atorvastatin Calcium 10 MG 1700 04/23 1700 AC 04/26 PO 1635 Benzonatate 100 MG TID 04/24 1400 AC 04/27 PO 1350 Calcitriol 1 MCG MoWeFr@1000 PRN 04/26 1215 AC IV Calcium Carbonate 1,250 MG WITH MEALS 04/20 1700 AC 04/27 PO 1351 Clindamycin 600 MG IQ8 04/21 1600 AC 04/27 Dextrose/Water 50 ML IV 0026 Epoetin Jeyson 6,000 UNIT MoWeFr@1000 PRN 04/26 1215 AC IV Folic Acid 1 MG DAILY 04/20 1000 AC 04/27 PO 1351 Heparin Sodium 5,000 UNIT Q8 04/20 1730 AC 04/27 (Porcine) SC 1350 Insulin Aspart 0 TIDAC 04/22 1700 AC 04/27 SC 0801 Labetalol HCl 200 MG BID 04/25 2200 AC 04/27 PO 1350 Lorazepam 0 Q1P PRN 04/20 1730 AC IV Melatonin 5 MG AT BEDTIME 04/27 0030 AC 04/27 PO 0038 Morphine Sulfate 2 MG Q6P PRN 04/19 191 DC 04/20 IV 2207 Multivitamins 1 TAB DAILY 04/22 1000 AC 04/27 PO 1351 Multivitamins 1 TAB DAILY 04/20 1000 AC 04/27 PO 1350 Omeprazole 40 MG DAILY AC 04/21 0700 AC 04/27 PO 0616 Ondansetron HCl 4 MG Q8P PRN 04/19 1915 AC IV Oxycodone/ 1 TAB Q6P PRN 04/19 1915 DC Acetaminophen PO Patient Medication 1 ED .STK-MED ONE 04/27 1354 [place] Teaching ED 04/27 1355 Thiamine HCl 100 MG DAILY 04/20 1000 AC 04/27 PO 1350 Last 24 Hrs of Lab/Ozzie Results Last 24 Hrs of Labs/Mics: Laboratory Tests 04/27/17 1230: Estimated GFR 19 L, BUN/Creatinine Ratio 7.4 04/27/17 0652: Anion Gap 17 H, Estimated GFR 8 L, BUN/Creatinine Ratio 7.8, CBC w Diff NO MAN DIFF REQ, RBC 3.81 L, MCV 69.0 L, MCH 22.2 L, RDW 15.8 H, MPV 6.9 L, Gran % 82.3 H, Lymphocytes % 11.8 L, Monocytes % 3.9, Eosinophils % 1.7, Basophils % 0.3, Absolute Granulocytes 10.3 H, Absolute Lymphocytes 1.5, Absolute Monocytes 0.5, Absolute Eosinophils 0.2, Absolute Basophils 0, PUBS MCHC 32.3 L Assessment/Plan Assessment: This is 46-year-old man with past medical history of hypertension, hyperlipidemia, type 2 diabetes mellitus and alcohol abuse with c/of a cough productive of yellowish sputum and some blood x several months that has been worse over last several weeks.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 -Anion Gap 34 H, Estimated GFR 4 L, BUN/Creatinine Ratio 6.1 L, Glucose 133 H, Calcium 6.7 L, Phosphorus 10.8 H Creatine Kinase 590 H, -Urine Clarity HAZY H,Urine Protein >=300 H Urine WBC 3-5 H, Ur Epithelial Cells RENAL H, Granular Casts MANY H, Urine Hemoglobin LARGE H, Urine Glucose 100 H -CXR: No acute cardiopulmonary process. -CT ABD & PELVIS W/O IV CONTRAST: 1. No evidence of obstructive uropathy. 2. Otherwise, no acute abnormalities in the abdomen or pelvis. -Initial ED EKG: normal intervals, normal p-waves, normal sinus rhythm, rate ( 104), nonspecific ST T wave changes. He was admitted to ICU 04/19 for close monitoring and is now being transferred to general medicine floor. Acute Renal failure--Dialysis today Most likely Renal. Considering lisinpril vs illict drug abuse vs metformin. Per records pateint kidney functions were completely normal in December. -Utox obtained here is negative. -Hep Panel,MELODY, ANCA, C3,C4 ,SPEP negative. -As per Nephro he remains dialysis dependent. His creatinine has decreased but not yet at his baseline.His schedule has been changed to Tuesday and Tuesday * Continue hemodialysis * Creatinine today is 7.6 * Recheck labs only with HD * Consider renal biopsy HTN and Tachycardia lisinopril and hydrochlorothiazide were held on admission. Amlodipine was continued. We have increased labetalol dose to 200 mg twice a day -avoid nephrotoxic medications.His BP 158/76 and HR 80 today * Continue Labetalol 200mg BID Electrolyte derangements (Hyperkalemia/Hyponatremia/Hypomagnesemia/ Hypocalcemia /Hyperphosphatemia) Electrolytes are getting better with dialysis. He was also put on fluid restriction initially 800 and then later 1000 mL/day. He was also started on culture globulin IV calcitriol by civil engineer helper.K+: 4.2 Na: 135 today Ca: 9.2 * CONTINUE TO MONITOR AND REPLETE History of diabetes Metformin held * on NovoLog insulin sliding scale. Aspiration pneumonia (PEN allergic) Patient remained afebrile throughout hospitalization. His WBC count was elevated. He had persistent productive cough bringing up clear phlegm. No episode of hemoptysis in hospital. CT chest was done on 04/20/17. CT CHEST WO IV CONTRAST Patchy multifocal groundglass opacification. The appearance is nonspecific,but consider infectious or inflammatory etiologies. There are neither pleural effusions nor pneumothoraces. * pt is on clindamycin 600mg q8h Microcytic anemia H/H remained stable. * on Epogen by Neophro with Dialysis. Severe Anion gap metabolic acidosis- resolved most likely secondary to alcohol intoxication and metformin induced lactic acidosis Anion gap was 34 on admission. Improving after dialysis. Today anion gap has closed. Positive troponins. Trops 0.10 on admission and trended up to 0.11. Peak trop was 0.15. No EKG changes. Cardio was consulted. Per cardio its likely demand ischemia and poor renal clearance. Patient is stable from a cardiac standpoint. ECHO was ordered. No further cardiac workup was recommended. ECHO: CONCLUSIONS Mild concentric left ventricular hypertrophy. Normal left ventricular ejection fraction visually estimated at >65. No obvious regional wall motion abnormalities.No significant valve abnormalities. Physiologic valvular regurgitation. The left atrium is normal in size. 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 Drinks 6-7 glasses of vodka everyday. He was put on CIWA protocol and started on scheduled and IV Ativan as needed per CIWA. Inpatient treatment finished. Code: Full DVT PPx: Heparin SQ Diet: Consistent Carbohydrate 2 Problem List: 1. Acute renal failure Pain Ratin Pain Location: none Pain Goal: Pain 4 or less Pain Plan: acetaminophen [id number] prn Tomorrow's Labs & Rationales: labs on tuesday now
[2017-04-27 12:42] VITALS: BP 158/76
[2017-04-27 14:00] VITALS: BP 158/76
[2017-04-27 22:29] VITALS: BP 140/60
[2017-04-28] VITALS: BP 140/78
[2017-04-28 06:47] VITALS: BP 144/76
--- NOTE | 2017-04-28 07:44 | PN- Housestaff ---
Subjective Follow-up For: New onset SOHAIL on dialysis Electrolyte derangements Hypertensive urgency Persistent dry cough Subjective: I have seen and examined the patient. The patient was sitting comfortably on the chair watching television. He does not have any current complaints. He used to be hemodialyzed tomorrow. He still complains of dry cough he says it's not improving but it is not getting worse as well. He denies any chest pain palpitations or shortness of breath. He complains of headache and leg edema. His urine output is likely underreported given that he is going to bathroom on his own. Review of Systems Constitutional: Denies: fever, malaise. Cardiovascular: Denies: chest pain, palpitations. Respiratory: Denies: short of breath. Gastrointestinal: Denies: constipation, diarrhea. Genitourinary: Reports: no symptoms. Musculoskeletal: Reports: no symptoms. Objective Last 24 Hrs of Vital Signs/I&O Vital Signs Date Time Temp Pulse Resp B/P B/P Pulse O2 O2 Flow FiO2 Mean Ox Delivery Rate 04/28 1411 97.7 74 18 120/58 98 Room Air 04/28 0841 75 130/80 04/28 0840 75 130/80 04/28 0647 99.1 74 18 144/76 95 Room Air 04/28 0000 98.0 87 20 140/78 04/27 2229 99.5 78 20 140/60 98 Room Air 04/27 2131 80 160/78 Intake & Output 04/28 1600 04/28 0800 04/28 0000 Intake Total 140 274 Output Total Balance 140 274 Intake, IV 80 94 Intake, Oral 60 180 Patient 236 lb Weight Weight Standing Scale Measurement Method Physical Exam General Appearance: Alert, Oriented X3, Cooperative, No Acute Distress Skin: No Rashes, No Breakdown, R IJ HD cath, Nimesh catheter site intact and without any surrounding erythema Neck: Supple Cardiovascular: Normal S1, Normal S2, No Murmurs Lungs: Clear to Auscultation, Normal Air Movement Abdomen: Normal Bowel Sounds, Soft, No Tenderness Neurological: Normal Speech Extremities: b/l lower extremity edema Current Medications: Current Medications Sig/Edward Start time Last Medication Dose Route Stop Time Status Admin Acetaminophen 650 MG Q6P PRN 04/19 1915 AC PO Amlodipine Besylate 10 MG DAILY 04/24 1000 AC 04/28 PO 0840 Atorvastatin Calcium 10 MG 1700 04/23 1700 AC 04/27 PO 1626 Benzonatate 100 MG TID 04/24 1400 AC 04/28 PO 0840 Calcitriol 1 MCG MoWeFr@1000 PRN 04/26 1215 AC IV Calcium Carbonate 1,250 MG WITH MEALS 04/20 1700 AC 04/28 PO 1210 Clindamycin 600 MG IQ8 04/21 1600 DC 04/28 Dextrose/Water 50 ML IV 0836 Epoetin Jeyson 6,000 UNIT MoWeFr@1000 PRN 04/26 1215 AC IV Folic Acid 1 MG DAILY 04/20 1000 AC 04/28 PO 0840 Heparin Sodium 5,000 UNIT Q8 04/20 1730 AC 04/28 (Porcine) SC 1417 Insulin Aspart 0 TIDAC 04/22 1700 AC 04/28 SC 1210 Labetalol HCl 200 MG BID 04/25 2200 AC 04/28 PO 0841 Lorazepam 0 Q1P PRN 04/20 1730 DC IV Melatonin 5 MG AT BEDTIME 04/27 0030 AC 04/28 PO 0010 Multivitamins 1 TAB DAILY 04/22 1000 AC 04/28 PO 0840 Multivitamins 1 TAB DAILY 04/20 1000 DC 04/27 PO 1350 Omeprazole 40 MG DAILY AC 04/21 0700 AC 04/28 PO 0604 Ondansetron HCl 4 MG Q8P PRN 04/19 1915 AC IV Thiamine HCl 100 MG DAILY 04/20 1000 AC 04/28 PO 0841 Assessment/Plan Assessment: This is 46-year-old man with past medical history of hypertension, hyperlipidemia, type 2 diabetes mellitus and alcohol abuse with c/of a cough productive of yellowish sputum and some blood x several months that has been worse over last several weeks.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 -Anion Gap 34 H, Estimated GFR 4 L, BUN/Creatinine Ratio 6.1 L, Glucose 133 H, Calcium 6.7 L, Phosphorus 10.8 H Creatine Kinase 590 H, -Urine Clarity HAZY H,Urine Protein >=300 H Urine WBC 3-5 H, Ur Epithelial Cells RENAL H, Granular Casts MANY H, Urine Hemoglobin LARGE H, Urine Glucose 100 H -CXR: No acute cardiopulmonary process. -CT ABD & PELVIS W/O IV CONTRAST: 1. No evidence of obstructive uropathy. 2. Otherwise, no acute abnormalities in the abdomen or pelvis. -Initial ED EKG: normal intervals, normal p-waves, normal sinus rhythm, rate ( 104), nonspecific ST T wave changes. He was admitted to ICU 04/19 for close monitoring and is now being transferred to general medicine floor. Acute Renal failure--Dialysis tomorrow Most likely Renal vs prerenal. Considering lisinpril vs illict drug abuse vs metformin vs hypotension. Per records pateint kidney functions were completely normal in December.His urine output is likely underreported given that he is going to bathroom on his own. He reports increasing urine output and his fluid restriction needs to be liberalized with impending diuretic phase of ATN. -Utox obtained here is negative. -Hep Panel,MELODY, ANCA, C3,C4 ,SPEP negative. -As per Nephro he remains dialysis dependent. His creatinine has decreased but not yet at his baseline.His schedule has been changed to Tuesday and Tuesday * Continue hemodialysis * Creatinine yesterday after dialysis is 3.5 * Recheck labs only with HD * Monitor strict input and output * increased fluid restriction to 1200 * Monitor daily weights * Spot or random urine protein to spot or random creatinine ratio HTN and Tachycardia lisinopril and hydrochlorothiazide were held on admission. Amlodipine was continued. We have increased labetalol dose to 200 mg twice a day -avoid nephrotoxic medications.His BP 120/58 and HR 74 today * Continue Labetalol 200mg BID Electrolyte derangements (Hyperkalemia/Hyponatremia/Hypomagnesemia/ Hypocalcemia /Hyperphosphatemia) Electrolytes are getting better with dialysis. He was also put on fluid restriction initially 800 and then later 1000 mL/day. He was also started on culture globulin IV calcitriol by bond manager. * CONTINUE TO MONITOR AND REPLETE History of diabetes Metformin held * on NovoLog insulin sliding scale. Aspiration pneumonia (PEN allergic) Patient remained afebrile throughout hospitalization. His WBC count was elevated. He had persistent productive cough bringing up clear phlegm. No episode of hemoptysis in hospital. CT chest was done on 04/20/17. CT CHEST WO IV CONTRAST Patchy multifocal groundglass opacification. The appearance is nonspecific,but consider infectious or inflammatory etiologies. There are neither pleural effusions nor pneumothoraces. * pt is on clindamycin 600mg q8h Microcytic anemia H/H remained stable. * on Epogen by Neophro with Dialysis. Severe Anion gap metabolic acidosis- resolved most likely secondary to alcohol intoxication and metformin induced lactic acidosis Anion gap was 34 on admission. Improving after dialysis. Today anion gap has closed. Positive troponins. Trops 0.10 on admission and trended up to 0.11. Peak trop was 0.15. No EKG changes. Cardio was consulted. Per cardio its likely demand ischemia and poor renal clearance. Patient is stable from a cardiac standpoint. ECHO was ordered. No further cardiac workup was recommended. ECHO: CONCLUSIONS Mild concentric left ventricular hypertrophy. Normal left ventricular ejection fraction visually estimated at >65. No obvious regional wall motion abnormalities.No significant valve abnormalities. Physiologic valvular regurgitation. The left atrium is normal in size. 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 Drinks 6-7 glasses of vodka everyday. He was put on CIWA protocol and started on scheduled and IV Ativan as needed per CIWA. Inpatient treatment finished. Code: Full DVT PPx: Heparin SQ Diet: Consistent Carbohydrate 2 Problem List: 1. Acute renal failure Pain Ratin Pain Location: none Pain Goal: Pain 4 or less Pain Plan: acetaminophen [id number] prn Tomorrow's Labs & Rationales: labs with dialysis
--- NOTE | 2017-04-28 10:27 | PN- Att Addend ---
Attending Addendum Attending Brief Note Patient seen and examined this morning. Plan of care discussed with the medical team and the patient. Available lab work and radiology test reports were reviewed. Patient does not report any new symptoms. He denies any chest pain difficulty breathing fever chills nausea vomiting or abdominal pain. He overall appears comfortable. Patient's last dialysis was yesterday. Patient reports increasing urine output. Vital Signs Date Time Temp Pulse Resp B/P B/P Pulse O2 O2 Flow FiO2 Mean Ox Delivery Rate 04/28 0841 75 130/80 04/28 0840 75 130/80 04/28 0647 99.1 74 18 144/76 95 Room Air 04/28 0000 98.0 87 20 140/78 04/27 2229 99.5 78 20 140/60 98 Room Air 04/27 2131 80 160/78 04/27 1400 98.9 80 18 158/76 04/27 1351 80 158/76 04/27 1350 80 158/76 04/27 1242 98.9 80 18 158/76 98 Room Air Intake & Output 04/28 1600 04/28 0800 04/28 0000 Intake Total 140 274 Output Total Balance 140 274 Intake, IV 80 94 Intake, Oral 60 180 Patient 236 lb Weight Weight Standing Scale Measurement Method Exam: General: Patient awake alert oriented without any distress CVS: S1 plus S2 without any murmur or gallops Chest: Few scattered crepitation without any wheeze. There is no respiratory distress. Abdomen: Soft nontender, bowel sound present, no guarding or rebound POST CLOSER: Awake alert oriented without any focal neuro deficit and follows command appropriately Extremities: No edema; no clubbing or cyanosis noted MADDY cath intact. Laboratory Tests 04/27 1230 Chemistry BUN (9 - 20 mg/dL) 26 H Creatinine (0.7 - 1.2 mg/dL) 3.5 H Estimated GFR (>60 ml/min) 19 L BUN/Creatinine Ratio (7 - 25 %) 7.4 Assessment and plan * Acute renal failure- most likely ATN . case discussed with nephrology Dr. Reese yesterday in detail. Patient is showing signs of improvement and he may come off dialysis at some point. His urine output is increasing. Nephrology is considering renal biopsy. * Anion gap metabolic acidosis * Alcohol abuse and alcohol intoxication * Hyperkalemia * Hyponatremia * Hypomagnesemia * History of diabetes * Persistent tachycardia- of unclear etiology; patient is being followed up by cardiology * Positive troponin- more probably is from acute renal failure * Uncontrolled hypertension- improved and stable current medications * Persistent elevated WBC count of unclear etiology without any clear source of infection Plan * Given improvement in creatinine patient may come off dialysis at this point. His urine output is likely underreported given that he is going to bathroom on his own. He reports increasing urine output and his fluid restriction needs to be liberalized with impending diuretic phase of ATN. Given rapid improvement biopsy may no longer be indicated this point. * Recheck labs only with HD * Monitor BP closely; continue labetalol dose 200 mg twice a day
--- NOTE | 2017-04-28 11:20 | PN- Nephrology ---
Assessment/Plan Assessment: 1. SOHAIL or Acute Renal failure: Patient reports that he is making more urine. The amount documented yesterday was 675 mL. The day before that 725 mL and 800 mL on April 25. He also raises the issue as to whether or not all of the urine is being measured by nursing. As noted earlier, the patient's serologies have all been negative. There is no clear hemodynamic accident or insult documented. This may well be because that insult was several days prior to his admission. When thinking about this, when he arrives with a creatinine of 13.6, his kidneys had not been working for several days prior. The only day he reports symptomatology is on April 16 or April 12 prior to admission. He had been started on lisinopril on April 08. Given the fact that he may be beginning to recover, a biopsy may not be worth the risk. Please note the creatinine of 3.5 was immediately after dialysis. 3. Met Acid: corrected with HD 4. H/O DM- this is not Diabetic Nephropathy, his serum creatinine was 0.9 in December. 5. H/O etoh abuse 6. Volume status-given the fact that his urine output may be increasing, his fluid restriction can be raised. Suggestion: 1. Dialysis again tomorrow. He will likely need to be 4 hours 15 minutes. 2. Hold on a closed renal biopsy. 3. Labs will be rechecked tomorrow before dialysis 4. Please send a spot or random urine protein to spot or random creatinine ratio. Please do not send a microalbumin. 5. Continue with strict intakes and outputs and daily weights. Subjective Subjective: Patient looks and feels well. He is sitting up watching the [employer]. He reports that all of his urine may not be being collected by the nursing staff. Objective Vital Signs and I&Os Vital Signs Date Time Temp Pulse Resp B/P B/P Pulse O2 O2 Flow FiO2 Mean Ox Delivery Rate 04/28 0841 75 130/80 04/28 0840 75 130/80 04/28 0647 99.1 74 18 144/76 95 Room Air 04/28 0000 98.0 87 20 140/78 04/27 2229 99.5 78 20 140/60 98 Room Air 04/27 2131 80 160/78 04/27 1400 98.9 80 18 158/76 04/27 1351 80 158/76 04/27 1350 80 158/76 04/27 1242 98.9 80 18 158/76 98 Room Air Intake & Output 04/28 1600 04/28 0400 04/27 1600 04/27 0400 04/26 1600 04/26 0400 Intake Total 140 274 282 190 420 550 Output Total 2475 400 525 300 Balance 140 274 -2193 -210 -105 250 Intake, IV 80 94 70 130 70 Intake, Oral 60 180 282 120 290 480 Number 1 0 Bowel Movements Output, 2000 Dialysate Output, Urine 475 400 525 300 Patient 236 lb 237 lb 238 lb Weight Weight Standing Scale Standing Scale Standing Scale Measurement Method Physical Exam: General Appearance: well developed/nourished, seems mildly winded, alert Head: atraumatic Ears, Nose, Throat: normal ENT inspection Neck: R IJ HD cath in place. No masses, no tenderness. Respiratory: Clearer today to auscultation and percussion. Cardiovascular: regular rate/rhythm Abdomen: soft, non-tender, no organomegaly Extremities: Still is some lower extremity edema Neurologic/Psychiatric: awake, alert, moving all extremities Current Medications: Current Medications Sig/Edward Start time Last Medication Dose Route Stop Time Status Admin Acetaminophen 650 MG Q6P PRN 04/19 1915 AC PO Amlodipine Besylate 10 MG DAILY 04/24 1000 AC 04/28 PO 0840 Atorvastatin Calcium 10 MG 1700 04/23 1700 AC 04/27 PO 1626 Benzonatate 100 MG TID 04/24 1400 AC 04/28 PO 0840 Calcitriol 1 MCG MoWeFr@1000 PRN 04/26 1215 AC IV Calcium Carbonate 1,250 MG WITH MEALS 04/20 1700 AC 04/28 PO 0836 Clindamycin 600 MG IQ8 04/21 1600 DC 04/28 Dextrose/Water 50 ML IV 0836 Epoetin Jeyson 6,000 UNIT MoWeFr@1000 PRN 04/26 1215 AC IV Folic Acid 1 MG DAILY 04/20 1000 AC 04/28 PO 0840 Heparin Sodium 5,000 UNIT Q8 04/20 1730 AC 04/28 (Porcine) SC 0604 Insulin Aspart 0 TIDAC 04/22 1700 AC 04/27 SC 1700 Labetalol HCl 200 MG BID 04/25 2200 AC 04/28 PO 0841 Lorazepam 0 Q1P PRN 04/20 1730 DC IV Melatonin 5 MG AT BEDTIME 04/27 0030 AC 04/28 PO 0010 Multivitamins 1 TAB DAILY 04/22 1000 AC 04/28 PO 0840 Multivitamins 1 TAB DAILY 04/20 1000 DC 04/27 PO 1350 Omeprazole 40 MG DAILY AC 04/21 0700 AC 04/28 PO 0604 Ondansetron HCl 4 MG Q8P PRN 04/19 1915 AC IV Patient Medication 1 ED .STK-MED ONE 04/27 1354 OH Teaching ED 04/27 1355 Thiamine HCl 100 MG DAILY 04/20 1000 AC 04/28 PO 0841 Results Pertinent Lab Results: Laboratory Tests 04/27 04/27 1230 0652 Chemistry Sodium (137 - 145 mmol/L) 135 L Potassium (3.5 - 5.1 mmol/L) 4.2 Chloride (98 - 107 mmol/L) 98 Carbon Dioxide (22 - 30 mmol/L) 20 L Anion Gap (5 - 16) 17 H BUN (9 - 20 mg/dL) 26 H 59 H Creatinine (0.7 - 1.2 mg/dL) 3.5 H 7.6 *H Estimated GFR (>60 ml/min) 19 L 8 L BUN/Creatinine Ratio (7 - 25 %) 7.4 7.8 Hematology CBC w Diff NO MAN DIFF REQ WBC (4.8 - 10.8 /CUMM) 12.5 H RBC (4.70 - 6.10 /CUMM) 3.81 L Hgb (14.0 - 18.0 G/DL) 8.5 L Hct (42 - 52 %) 26.3 L MCV (80.0 - 94.0 FL) 69.0 L MCH (27.0 - 31.0 PG) 22.2 L RDW (11.5 - 14.5 %) 15.8 H Plt Count (130 - 400 /CUMM) 232 MPV (7.4 - 10.4 FL) 6.9 L Gran % (42.2 - 75.2 %) 82.3 H Lymphocytes % (20.5 - 51.1 %) 11.8 L Monocytes % (1.7 - 9.3 %) 3.9 Eosinophils % (0 - 5 %) 1.7 Basophils % (0.0 - 2.0 %) 0.3 Absolute Granulocytes (1.4 - 6.5 /CUMM) 10.3 H Absolute Lymphocytes (1.2 - 3.4 /CUMM) 1.5 Absolute Monocytes (0.10 - 0.60 /CUMM) 0.5 Absolute Eosinophils (0.0 - 0.7 /CUMM) 0.2 Absolute Basophils (0.0 - 0.2 /CUMM) 0 PUBS MCHC (33.0 - 37.0 G/DL) 32.3 L 04/26 07/ 0740 1226 Chemistry Sodium (137 - 145 mmol/L) 135 L Potassium (3.5 - 5.1 mmol/L) 4.2 Chloride (98 - 107 mmol/L) 97 L Carbon Dioxide (22 - 30 mmol/L) 24 Anion Gap (5 - 16) 13 BUN (9 - 20 mg/dL) 48 H 26 H Creatinine (0.7 - 1.2 mg/dL) 6.0 *H Estimated GFR (>60 ml/min) 10 L BUN/Creatinine Ratio (7 - 25 %) 8.0 Hematology CBC w Diff NO MAN DIFF REQ WBC (4.8 - 10.8 /CUMM) 12.3 H RBC (4.70 - 6.10 /CUMM) 3.78 L Hgb (14.0 - 18.0 G/DL) 8.4 L Hct (42 - 52 %) 26.0 L MCV (80.0 - 94.0 FL) 68.8 L MCH (27.0 - 31.0 PG) 22.3 L RDW (11.5 - 14.5 %) 15.8 H Plt Count (130 - 400 /CUMM) 254 MPV (7.4 - 10.4 FL) 6.8 L Gran % (42.2 - 75.2 %) 82.0 H Lymphocytes % (20.5 - 51.1 %) 12.1 L Monocytes % (1.7 - 9.3 %) 4.8 Eosinophils % (0 - 5 %) 0.8 Basophils % (0.0 - 2.0 %) 0.3 Absolute Granulocytes (1.4 - 6.5 /CUMM) 10.0 H Absolute Lymphocytes (1.2 - 3.4 /CUMM) 1.5 Absolute Monocytes (0.10 - 0.60 /CUMM) 0.6 Absolute Eosinophils (0.0 - 0.7 /CUMM) 0.1 Absolute Basophils (0.0 - 0.2 /CUMM) 0 PUBS MCHC (33.0 - 37.0 G/DL) 32.4 L
[2017-04-28 14:11] VITALS: BP 120/58
[2017-04-28 21:38] VITALS: BP 154/70
[2017-04-29 07:00] VITALS: BP 140/68
--- NOTE | 2017-04-29 08:21 | PN- Att Addend ---
Attending Addendum Attending Brief Note Patient seen and examined this morning. Plan of care discussed with the medical team and the patient. Available lab work and radiology test reports were reviewed. Patient does not report any new symptoms. He denies any chest pain difficulty breathing fever chills nausea vomiting or abdominal pain. He overall appears comfortable. Patient undergoing dialysis now. He reports increasing urine output. As per RN urine output was 1 L last 12 hours. Vital Signs Date Time Temp Pulse Resp B/P B/P Pulse O2 O2 Flow FiO2 Mean Ox Delivery Rate 04/29 07 99.0 76 16 140/68 95 04/28 2138 97.8 80 18 154/70 99 04/28 1411 97.7 74 18 120/58 98 Room Air 04/28 0841 75 130/80 04/28 0840 75 130/80 Intake & Output 04/29 1600 04/29 0800 04/29 0000 Intake Total 228 222 Output Total 100 Balance 228 122 Intake, Oral 228 222 Output, Urine 100 Patient 238 lb Weight Weight Standing Scale Measurement Method Exam: General: Patient awake alert oriented without any distress CVS: S1 plus S2 without any murmur or gallops Chest: Few scattered crepitation without any wheeze. There is no respiratory distress. Abdomen: Soft nontender, bowel sound present, no guarding or rebound FINANCIAL ADMINISTRATOR: Awake alert oriented without any focal neuro deficit and follows command appropriately Extremities: No edema; no clubbing or cyanosis noted MADDY cath intact. Laboratory Tests 04/28 1606 Urines Ur Random Creatinine (mg/dL) 109.0 U Random Total Protein (0 - 12 mg/dL) 116 H Protein/Creatinin Ratio (< 0.2) 1.0 H Assessment and plan * Acute renal failure- most likely ATN . case discussed with nephrology Dr. Reese. Patient is showing signs of improvement and he may come off dialysis at some point. His urine output is increasing. No plan for renal biopsy this point given rapid improvement. * Anion gap metabolic acidosis * Alcohol abuse and alcohol intoxication * Hyperkalemia * Hyponatremia * Hypomagnesemia * History of diabetes * Persistent tachycardia- of unclear etiology; patient is being followed up by cardiology * Positive troponin- more probably is from acute renal failure * Uncontrolled hypertension- improved and stable current medications * Persistent elevated WBC count of unclear etiology without any clear source of infection Plan * Given improvement in creatinine patient may come off dialysis in near future . His urine output is likely underreported given that he is going to bathroom on his own. He reports increasing urine output and his fluid restriction needs to be liberalized with impending diuretic phase of ATN. Given rapid improvement biopsy may no longer be indicated at this point. * Recheck labs only with HD * Monitor BP closely; continue labetalol dose 200 mg twice a day
--- NOTE | 2017-04-29 08:49 | PN- Housestaff ---
Subjective Follow-up For: New onset SOHAIL on dialysis Electrolyte derangements Hypertension Persistent dry cough Complaints: no complaints Review of Systems Constitutional: Denies: chills, diaphoresis, fever. EENTM: Reports: no symptoms. Cardiovascular: Denies: chest pain, orthopena, palpitations. Respiratory: Reports: cough. Gastrointestinal: Denies: constipation, diarrhea, bowel incontinence. Genitourinary: Reports: no symptoms. Musculoskeletal: Reports: no symptoms. Objective Last 24 Hrs of Vital Signs/I&O Vital Signs Date Time Temp Pulse Resp B/P B/P Pulse O2 O2 Flow FiO2 Mean Ox Delivery Rate 04/29 1416 97.9 87 20 152/54 99 04/29 1415 97.9 87 20 152/54 04/29 1414 97.9 87 20 152/54 04/29 0700 99.0 76 16 140/68 95 04/28 2138 97.8 80 18 154/70 99 Intake & Output 04/29 1600 04/29 0800 04/29 0000 Intake Total 228 222 Output Total 100 Balance 228 122 Intake, Oral 228 222 Output, Urine 100 Patient 238 lb Weight Weight Standing Scale Measurement Method Physical Exam General Appearance: Alert, Oriented X3, Cooperative, No Acute Distress Skin: No Rashes, No Breakdown, R IJ HD cath, Nimesh catheter site intact and without any surrounding erythema Cardiovascular: Normal S1, Normal S2, No Murmurs Lungs: Clear to Auscultation, Normal Air Movement Abdomen: Normal Bowel Sounds, Soft, No Tenderness Neurological: Normal Speech Extremities: b/l edema Current Medications: Current Medications Sig/Edward Start time Last Medication Dose Route Stop Time Status Admin Acetaminophen 650 MG Q6P PRN 04/19 1915 AC PO Amlodipine Besylate 10 MG DAILY 04/24 1000 AC 04/29 PO 1414 Atorvastatin Calcium 10 MG 1700 04/23 1700 AC 04/28 PO 1713 Benzonatate 100 MG TID 04/24 1400 AC 04/29 PO 1415 Calcitriol 1 MCG MoWeFr@1000 PRN 04/26 1215 AC IV Calcium Carbonate 1,250 MG WITH MEALS 04/20 1700 AC 04/29 PO 1416 Epoetin Jeyson 6,000 UNIT MoWeFr@1000 PRN 04/26 1215 AC IV Folic Acid 1 MG DAILY 04/20 1000 AC 04/29 PO 1415 Heparin Sodium 5,000 UNIT Q8 07/12 1730 AC 04/29 (Porcine) DE 1414 Insulin Aspart 0 TIDAC 04/22 1700 AC 04/28 SC 1713 Labetalol HCl 200 MG BID 04/25 2200 AC 04/29 PO 1415 Melatonin 5 MG AT BEDTIME 04/27 0030 AC 04/28 PO 2155 Multivitamins 1 TAB DAILY 04/22 1000 AC 04/29 PO 1415 Omeprazole 40 MG DAILY AC 04/21 0700 AC 04/29 PO 0601 Ondansetron HCl 4 MG Q8P PRN 04/19 1915 AC IV Thiamine HCl 100 MG DAILY 04/20 1000 AC 04/29 PO 1414 Last 24 Hrs of Lab/Ozzie Results Last 24 Hrs of Labs/Mics: Laboratory Tests 04/29/17 0810: Anion Gap 19 H, Estimated GFR 9 L, BUN/Creatinine Ratio 8.2, CBC w Diff NO MAN DIFF REQ, RBC 3.49 L, MCV 69.5 L, MCH 22.2 L, RDW 15.6 H, MPV 7.7, Gran % 87.1 H, Lymphocytes % 9.0 L, Monocytes % 3.0, Eosinophils % 0.7, Basophils % 0.2, Absolute Granulocytes 10.9 H, Absolute Lymphocytes 1.1 L, Absolute Monocytes 0.4, Absolute Eosinophils 0.1, Absolute Basophils 0, PUBS MCHC 31.9 L 04/28/17 1606: Ur Random Creatinine 109.0, U Random Total Protein 116 H, Protein/Creatinin Ratio 1.0 H Assessment/Plan Assessment: This is 46-year-old man with past medical history of hypertension, hyperlipidemia, type 2 diabetes mellitus and alcohol abuse with c/of a cough productive of yellowish sputum and some blood x several months that has been worse over last several weeks.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 -Anion Gap 34 H, Estimated GFR 4 L, BUN/Creatinine Ratio 6.1 L, Glucose 133 H, Calcium 6.7 L, Phosphorus 10.8 H Creatine Kinase 590 H, -Urine Clarity HAZY H,Urine Protein >=300 H Urine WBC 3-5 H, Ur Epithelial Cells RENAL H, Granular Casts MANY H, Urine Hemoglobin LARGE H, Urine Glucose 100 H -CXR: No acute cardiopulmonary process. -CT ABD & PELVIS W/O IV CONTRAST: 1. No evidence of obstructive uropathy. 2. Otherwise, no acute abnormalities in the abdomen or pelvis. -Initial ED EKG: normal intervals, normal p-waves, normal sinus rhythm, rate ( 104), nonspecific ST T wave changes. He was admitted to ICU 04/19 for close monitoring and is now being transferred to general medicine floor. Acute Renal failure--Dialysis tomorrow Most likely Renal vs prerenal. Considering lisinpril vs illict drug abuse vs metformin vs hypotension. Per records pateint kidney functions were completely normal in December.His urine output is likely underreported given that he is going to bathroom on his own. He reports increasing urine output and his fluid restriction needs to be liberalized with impending diuretic phase of ATN. -Utox obtained here is negative. -Hep Panel,MELODY, ANCA, C3,C4 ,SPEP negative. -As per Nephro if with his increasing urine output, his serum creatinine remains the same from Tuesday through Tuesday and Tuesday or, improves, this may be a sign that the kidneys are beginning to recover and that dialysis will not longer be necessary * Creatinine today is 6.8 * Recheck labs only with HD * Monitor strict input and output. As per RN urine output was 1 L last 12 hours. * Increased fluid restriction to 1200 if urine output increases we will go up by 250cc * Monitor daily weights * Spot or random urine protein to spot or random creatinine ratio 1 * Given rapid improvement biopsy may no longer be indicated at this point. * Dialysis on Tuesday 12pm HTN and Tachycardia lisinopril and hydrochlorothiazide were held on admission. Amlodipine was continued. We have increased labetalol dose to 200 mg twice a day -avoid nephrotoxic medications.His BP 120/58 and HR 74 today * Continue Labetalol 200mg BID Electrolyte derangements (Hyperkalemia/Hyponatremia/Hypomagnesemia/ Hypocalcemia /Hyperphosphatemia) Electrolytes are getting better with dialysis. He was also put on fluid restriction initially 800 and then later 1000 mL/day. He was also started on culture globulin IV calcitriol by film maker. * CONTINUE TO MONITOR AND REPLETE History of diabetes Metformin held * on NovoLog insulin sliding scale. Aspiration pneumonia (PEN allergic) Patient remained afebrile throughout hospitalization. His WBC count was elevated. He had persistent productive cough bringing up clear phlegm. No episode of hemoptysis in hospital. CT chest was done on 04/20/17. CT CHEST WO IV CONTRAST Patchy multifocal groundglass opacification. The appearance is nonspecific,but consider infectious or inflammatory etiologies. There are neither pleural effusions nor pneumothoraces. * pt is on clindamycin 600mg q8h Microcytic anemia H/H remained stable. * on Epogen by Neophro with Dialysis. Severe Anion gap metabolic acidosis- resolved most likely secondary to alcohol intoxication and metformin induced lactic acidosis Anion gap was 34 on admission. Improving after dialysis. Today anion gap has closed. Positive troponins--demand ischemia Trops 0.10 on admission and trended up to 0.11. Peak trop was 0.15. No EKG changes. Cardio was consulted. Per cardio its likely demand ischemia and poor renal clearance. Patient is stable from a cardiac standpoint. ECHO was ordered. No further cardiac workup was recommended. ECHO: CONCLUSIONS Mild concentric left ventricular hypertrophy. Normal left ventricular ejection fraction visually estimated at >65. No obvious regional wall motion abnormalities.No significant valve abnormalities. Physiologic valvular regurgitation. The left atrium is normal in size. 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 Drinks 6-7 glasses of vodka everyday. He was put on CIWA protocol and started on scheduled and IV Ativan as needed per CIWA. Inpatient treatment finished. Code: Full DVT PPx: Heparin SQ Diet: Consistent Carbohydrate 2 Problem List: 1. Acute renal failure Pain Ratin Pain Location: N/A Pain Goal: Pain 4 or less Pain Plan: N/A Tomorrow's Labs & Rationales: LABS ON TUE SAT SUN
[2017-04-29 09:15] LABS: ABSOLUTE BASOPHIL COUNT 0 /CUMM (0.0-0.2); ABSOLUTE EOSINOPHIL COUNT 0.1 /CUMM (0.0-0.7); ABSOLUTE GRANULOCYTE CT 10.9 /CUMM (1.4-6.5); ABSOLUTE LYMPH COUNT 1.1 /CUMM (1.2-3.4); ABSOLUTE MONOCYTE COUNT 0.4 /CUMM (0.10-0.60); BASOPHIL % 0.2 % (0.0-2.0); EOSINOPHIL % 0.7 % (0-5); HEMATOCRIT 24.3 % (42-52); MEAN CORPUSCULAR HGB 22.2 PG (27.0-31.0); MEAN CORPUSCULAR HGB CONC 31.9 G/DL (33.0-37.0); MEAN CORPUSCULAR VOLUME 69.5 FL (80.0-94.0); MEAN PLATELET VOLUME 7.7 FL (7.4-10.4); PLATELET COUNT 199 /CUMM (130-400); RBC DISTRIBUTION WIDTH 15.6 % (11.5-14.5); RED BLOOD CELL CT 3.49 /CUMM (4.70-6.10); WHITE BLOOD CELL COUNT 12.5 /CUMM (4.8-10.8)
--- NOTE | 2017-04-29 10:24 | PN- Nephrology ---
Assessment/Plan Assessment: 1. SOHAIL or Acute Renal failure: The patient reports that he is had greater than 1 L of urine out yesterday during days. Unfortunately, this is not documented in the intakes and outputs. On a more positive side, his serum creatinine is lower today than it was prior to dialysis on Tuesday. This implies that he is beginning to recover kidney function. 3. Met Acid: corrected with HD 4. H/O DM- this is not Diabetic Nephropathy, his serum creatinine was 0.9 in December. 5. H/O etoh abuse 6. Volume status-even with edema, would not give diuretics just now. Suggestion: 1. Dialysis will be planned again for Tuesday. 2. Hold on a closed renal biopsy. Since he may be recovering 3. Labs will be need to be rechecked tomorrow, Tuesday and Tuesday morning by peripheral stick. Unlike usual practice, in this situation, may be helpful to track the serum creatinine. The first observation is that tomorrow's creatinine will be much better than today's because he was dialyzed. If with his increasing urine output, his serum creatinine remains the same from Tuesday through Tuesday and Tuesday or, improves, this may be a sign that the kidneys are beginning to recover and that dialysis will not longer be necessary. Therefore we'll plan his dialysis to be second shift roughly 11 AM or 12 PM 4. Continue with strict intakes and outputs and daily weights. Subjective Subjective: Seen with hemodialysis in progress. He looks and feels well. He had to get up last night to void. Objective Vital Signs and I&Os Vital Signs Date Time Temp Pulse Resp B/P B/P Pulse O2 O2 Flow FiO2 Mean Ox Delivery Rate 04/29 0700 99.0 76 16 140/68 95 04/28 2138 97.8 80 18 154/70 99 04/28 1411 97.7 74 18 120/58 98 Room Air Intake & Output 04/29 1600 04/29 0400 04/28 1600 04/28 0400 04/27 040 Intake Total 228 222 488 274 282 190 Output Total 471 439 7684 400 Balance 228 122 188 274 -2193 -210 Intake, IV 80 94 70 Intake, Oral 228 222 408 180 282 120 Number 1 Bowel Movements Output, 1999 Dialysate Output, Urine 100 300 475 400 Patient 238 lb 236 lb 237 lb Weight Weight Standing Scale Standing Scale Standing Scale Measurement Method Physical Exam: General Appearance: well developed/nourished, seems mildly winded, alert Head: atraumatic Ears, Nose, Throat: normal ENT inspection Neck: R IJ HD cath in place. No masses, no tenderness. Respiratory: Clearer today to auscultation and percussion. Cardiovascular: regular rate/rhythm Abdomen: soft, non-tender, no organomegaly Extremities: Still is some lower extremity edema Neurologic/Psychiatric: awake, alert, moving all extremities Current Medications: Current Medications Sig/Edward Start time Last Medication Dose Route Stop Time Status Admin Acetaminophen 650 MG Q6P PRN 04/19 1915 AC PO Amlodipine Besylate 10 MG DAILY 04/24 1000 AC 04/28 PO 0840 Atorvastatin Calcium 10 MG 1700 04/23 1700 AC 04/28 PO 1713 Benzonatate 100 MG TID 04/24 1400 AC 04/28 PO 2155 Calcitriol 1 MCG MoWeFr@1000 PRN 04/26 1215 AC IV Calcium Carbonate 1,250 MG WITH MEALS 04/20 1700 AC 04/28 PO 1713 Epoetin Jeyson 6,000 UNIT MoWeFr@1000 PRN 04/26 1215 AC IV Folic Acid 1 MG DAILY 04/20 1000 AC 04/28 PO 0840 Heparin Sodium 5,000 UNIT Q8 04/20 1730 AC 04/29 (Porcine) SC 0601 Insulin Aspart 0 TIDAC 04/22 1700 AC 04/28 SC 1713 Labetalol HCl 200 MG BID 04/25 2200 AC 04/28 PO 2155 Melatonin 5 MG AT BEDTIME 04/27 0030 AC 04/28 PO 2155 Multivitamins 1 TAB DAILY 04/22 1000 AC 04/28 PO 0840 Omeprazole 40 MG DAILY AC 04/21 0700 AC 04/29 PO 0601 Ondansetron HCl 4 MG Q8P PRN 04/19 1915 AC IV Thiamine HCl 100 MG DAILY 04/20 1000 AC 04/28 PO 0841 Results Pertinent Lab Results: Laboratory Tests 04/29 04/28 04/27 04/27 0810 1606 1230 0652 Chemistry Sodium (137 - 145 mmol/L) 136 L 135 L Potassium (3.5 - 5.1 mmol/L) 4.0 4.2 Chloride (98 - 107 mmol/L) 97 L 98 Carbon Dioxide (22 - 30 mmol/L) 19 L 20 L Anion Gap (5 - 16) 19 H 17 H BUN (9 - 20 mg/dL) 56 H 26 H 59 H Creatinine (0.7 - 1.2 mg/dL) 6.8 *H 3.5 H 7.6 *H Estimated GFR (>60 ml/min) 9 L 19 L 8 L BUN/Creatinine Ratio (7 - 25 %) 8.2 7.4 7.8 Hematology CBC w Diff Pending NO MAN DIFF REQ WBC (4.8 - 10.8 /CUMM) Pending 12.5 H RBC (4.70 - 6.10 /CUMM) Pending 3.81 L Hgb (14.0 - 18.0 G/DL) Pending 8.5 L Hct (42 - 52 %) Pending 26.3 L MCV (80.0 - 94.0 FL) Pending 69.0 L MCH (27.0 - 31.0 PG) Pending 22.2 L RDW (11.5 - 14.5 %) Pending 15.8 H Plt Count (130 - 400 /CUMM) Pending 232 MPV (7.4 - 10.4 FL) Pending 6.9 L Gran % (42.2 - 75.2 %) Pending 82.3 H Lymphocytes % (20.5 - 51.1 %) Pending 11.8 L Monocytes % (1.7 - 9.3 %) Pending 3.9 Eosinophils % (0 - 5 %) Pending 1.7 Basophils % (0.0 - 2.0 %) Pending 0.3 Absolute Granulocytes (1.4 - 6.5 /CUMM) Pending 10.3 H Absolute Lymphocytes (1.2 - 3.4 /CUMM) Pending 1.5 Absolute Monocytes (0.10 - 0.60 /CUMM) Pending 0.5 Absolute Eosinophils (0.0 - 0.7 /CUMM) Pending 0.2 Absolute Basophils (0.0 - 0.2 /CUMM) Pending 0 PUBS MCHC (33.0 - 37.0 G/DL) Pending 32.3 L Urines Ur Random Creatinine (mg/dL) 109.0 U Random Total Protein (0 - 12 mg/dL) 116 H Protein/Creatinin Ratio (< 0.2) 1.0 H
[2017-04-29 11:00] LABS: GRANULOCYTE % 87.1 % (42.2-75.2)
[2017-04-29 14:16] VITALS: BP 152/54
[2017-04-29 22:43] VITALS: BP 138/58
[2017-04-30 07:22] VITALS: BP 140/70
[2017-04-30 07:44] LABS: ABSOLUTE BASOPHIL COUNT 0 /CUMM (0.0-0.2); ABSOLUTE EOSINOPHIL COUNT 0.2 /CUMM (0.0-0.7); ABSOLUTE GRANULOCYTE CT 9.2 /CUMM (1.4-6.5); ABSOLUTE LYMPH COUNT 1.7 /CUMM (1.2-3.4); ABSOLUTE MONOCYTE COUNT 0.4 /CUMM (0.10-0.60); BASOPHIL % 0.2 % (0.0-2.0); EOSINOPHIL % 1.4 % (0-5); GRANULOCYTE % 79.7 % (42.2-75.2); MEAN CORPUSCULAR HGB 22.3 PG (27.0-31.0); MEAN CORPUSCULAR HGB CONC 31.9 G/DL (33.0-37.0); MEAN CORPUSCULAR VOLUME 69.9 FL (80.0-94.0); MEAN PLATELET VOLUME 7.6 FL (7.4-10.4); PLATELET COUNT 205 /CUMM (130-400); RBC DISTRIBUTION WIDTH 16.2 % (11.5-14.5); RED BLOOD CELL CT 3.57 /CUMM (4.70-6.10); WHITE BLOOD CELL COUNT 11.5 /CUMM (4.8-10.8)
--- NOTE | 2017-04-30 10:21 | PN- Housestaff ---
Subjective Follow-up For: Hemodialysis A KI electrolyte derangement Persistent dry cough Subjective: I seen and examined the patient. The patient was sleeping comfortably in the bed. He does not have any current complaints. He believes that his dry cough is getting better. He reports bilateral lower extremity edema. He denies any shortness of breath fever chest pain or palpitations. He is scheduled for dialysis on Tuesday around 12 PM. Review of Systems Constitutional: Denies: diaphoresis, fever, malaise. Cardiovascular: Reports: edema. Denies: chest pain. Respiratory: Reports: cough. Gastrointestinal: Reports: no symptoms. Genitourinary: Reports: no symptoms. Objective Last 24 Hrs of Vital Signs/I&O Vital Signs Date Time Temp Pulse Resp B/P B/P Pulse O2 O2 Flow FiO2 Mean Ox Delivery Rate 04/30 922 80 132/72 04/30 922 80 132/72 04/30 722 98.6 81 20 140/70 96 Room Air 04/29 2243 99.6 77 20 138/58 97 Room Air 04/29 2135 99.9 77 20 138/58 04/29 1416 97.9 87 20 152/54 99 04/29 1415 97.9 87 20 152/54 04/29 1414 97.9 87 20 152/54 Intake & Output 04/30 1600 04/30 0800 04/30 0000 Intake Total 50 480 Output Total 700 250 100 Balance -700 -200 380 Intake, Oral 50 480 Output, Urine 700 250 100 Patient 233 lb 233 lb Weight Weight Standing Scale Measurement Method Physical Exam General Appearance: Alert, Oriented X3, Cooperative Skin: No Rashes, No Breakdown, R IJ HD cath, Nimesh catheter site intact and without any surrounding erythema Cardiovascular: Normal S1, Normal S2 Lungs: Clear to Auscultation, Normal Air Movement Abdomen: Normal Bowel Sounds, Soft, No Tenderness Neurological: Normal Speech Extremities: b/l edema Current Medications: Current Medications Sig/Edward Start time Last Medication Dose Route Stop Time Status Admin Acetaminophen 650 MG Q6P PRN 04/19 1915 AC PO Amlodipine Besylate 10 MG DAILY 04/24 1000 AC 04/30 PO 09 Atorvastatin Calcium 10 MG 1700 07/15 1700 AC 04/29 PO 1700 Benzonatate 100 MG TID 04/24 1400 AC 04/30 PO 09 Calcitriol 1 MCG MoWeFr@1000 PRN 04/26 1215 AC IV Calcium Carbonate 1,250 MG WITH MEALS 04/20 1700 AC 04/30 PO 1246 Epoetin Jeyson 6,000 UNIT MoWeFr@1000 PRN 04/26 1215 AC IV Folic Acid 1 MG DAILY 04/20 1000 AC 04/30 PO 0922 Heparin Sodium 5,000 UNIT Q8 04/20 1730 AC 04/30 (Porcine) SC 1353 Insulin Aspart 0 TIDAC 04/22 1700 AC 04/30 SC 1246 Labetalol HCl 200 MG BID 04/25 220 AC 04/30 PO 0922 Melatonin 5 MG AT BEDTIME 04/27 0030 DC 04/29 PO 2309 Multivitamins 1 TAB DAILY 04/22 1000 AC 04/30 PO 0922 Omeprazole 40 MG DAILY AC 04/21 0700 AC 04/30 PO 0606 Ondansetron HCl 4 MG Q8P PRN 04/19 1915 AC IV Thiamine HCl 100 MG DAILY 04/20 1000 AC 04/30 PO 09 Zolpidem Tartrate 5 MG AT BEDTIME 04/30 220 AC PO Last 24 Hrs of Lab/Ozzie Results Last 24 Hrs of Labs/Mics: Laboratory Tests 04/30/17 0630: Anion Gap 13, Estimated GFR 16 L, BUN/Creatinine Ratio 6.8 L, CBC w Diff NO MAN DIFF REQ, RBC 3.57 L, MCV 69.9 L, MCH 22.3 L, RDW 16.2 H, MPV 7.6, Gran % 79.7 H, Lymphocytes % 15.0 L, Monocytes % 3.7, Eosinophils % 1.4, Basophils % 0.2, Absolute Granulocytes 9.2 H, Absolute Lymphocytes 1.7, Absolute Monocytes 0.4, Absolute Eosinophils 0.2, Absolute Basophils 0, PUBS MCHC 31.9 L 04/29/17 1650: Sodium Cancelled, Potassium Cancelled, Chloride Cancelled, Carbon Dioxide Cancelled, Anion Gap Cancelled, BUN Cancelled, Creatinine Cancelled, BUN/ Creatinine Ratio Cancelled, CBC w Diff Cancelled, WBC Cancelled, RBC Cancelled, Hgb Cancelled, Hct Cancelled, MCV Cancelled, MCH Cancelled, RDW Cancelled, Plt Count Cancelled, MPV Cancelled, PUBS MCHC Cancelled Assessment/Plan Assessment: This is 46-year-old man with past medical history of hypertension, hyperlipidemia, type 2 diabetes mellitus and alcohol abuse with c/of a cough productive of yellowish sputum and some blood x several months that has been worse over last several weeks.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 -Anion Gap 34 H, Estimated GFR 4 L, BUN/Creatinine Ratio 6.1 L, Glucose 133 H, Calcium 6.7 L, Phosphorus 10.8 H Creatine Kinase 590 H, -Urine Clarity HAZY H,Urine Protein >=300 H Urine WBC 3-5 H, Ur Epithelial Cells RENAL H, Granular Casts MANY H, Urine Hemoglobin LARGE H, Urine Glucose 100 H -CXR: No acute cardiopulmonary process. -CT ABD & PELVIS W/O IV CONTRAST: 1. No evidence of obstructive uropathy. 2. Otherwise, no acute abnormalities in the abdomen or pelvis. -Initial ED EKG: normal intervals, normal p-waves, normal sinus rhythm, rate ( 104), nonspecific ST T wave changes. He was admitted to ICU 04/19 for close monitoring and is now being transferred to general medicine floor. Acute Renal failure--Dialysis tomorrow Most likely Renal vs prerenal. Considering lisinpril vs illict drug abuse vs metformin vs hypotension. Per records pateint kidney functions were completely normal in December.His urine output is likely underreported given that he is going to bathroom on his own. He reports increasing urine output and his fluid restriction needs to be liberalized with impending diuretic phase of ATN. -Utox obtained here is negative. -Hep Panel,MELODY, ANCA, C3,C4 ,SPEP negative. -As per Nephro if with his increasing urine output, his serum creatinine remains the same from Tuesday through Tuesday and Tuesday or, improves, this may be a sign that the kidneys are beginning to recover and that dialysis will not longer be necessary * Creatinine today is 4.1 * Yesterday patient's total intake was 948 and total output was 700. Fluid intake should be equal to his output plus 500 ml. his fluid restriction is 1200. Will monitor today's ins and outs. * Monitor daily weights * Spot or random urine protein to spot or random creatinine ratio 1 * Given rapid improvement biopsy may no longer be indicated at this point. * Dialysis on Tuesday 12pm HTN and Tachycardia lisinopril and hydrochlorothiazide were held on admission. Amlodipine was continued. We have increased labetalol dose to 200 mg twice a day -avoid nephrotoxic medications.His BP 120/58 and HR 74 today * Continue Labetalol 200mg BID Electrolyte derangements (Hyperkalemia/Hyponatremia/Hypomagnesemia/ Hypocalcemia /Hyperphosphatemia) Electrolytes are getting better with dialysis. He was also put on fluid restriction initially 800 and then later 1000 mL/day. He was also started on culture globulin IV calcitriol by assisted living associate. * CONTINUE TO MONITOR AND REPLETE History of diabetes Metformin held * on NovoLog insulin sliding scale. Aspiration pneumonia (PEN allergic) Patient remained afebrile throughout hospitalization. His WBC count was elevated. He had persistent productive cough bringing up clear phlegm. No episode of hemoptysis in hospital. CT chest was done on 04/20/17. CT CHEST WO IV CONTRAST Patchy multifocal groundglass opacification. The appearance is nonspecific,but consider infectious or inflammatory etiologies. There are neither pleural effusions nor pneumothoraces. * pt is on clindamycin 600mg q8h Microcytic anemia H/H remained stable. * on Epogen by Neophro with Dialysis. Severe Anion gap metabolic acidosis- resolved most likely secondary to alcohol intoxication and metformin induced lactic acidosis Anion gap was 34 on admission. Improving after dialysis. Today anion gap has closed. Positive troponins--demand ischemia Trops 0.10 on admission and trended up to 0.11. Peak trop was 0.15. No EKG changes. Cardio was consulted. Per cardio its likely demand ischemia and poor renal clearance. Patient is stable from a cardiac standpoint. ECHO was ordered. No further cardiac workup was recommended. ECHO: CONCLUSIONS Mild concentric left ventricular hypertrophy. Normal left ventricular ejection fraction visually estimated at >65. No obvious regional wall motion abnormalities.No significant valve abnormalities. Physiologic valvular regurgitation. The left atrium is normal in size. 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 Drinks 6-7 glasses of vodka everyday. He was put on CIWA protocol and started on scheduled and IV Ativan as needed per CIWA. Inpatient treatment finished. Code: Full DVT PPx: Heparin SQ Diet: Consistent Carbohydrate 2 Problem List: 1. Acute renal failure Pain Ratin Pain Location: none Pain Goal: Pain 4 or less Pain Plan: none Tomorrow's Labs & Rationales: cbc bep
--- NOTE | 2017-04-30 11:11 | PN- Att Addend ---
Attending Addendum Attending Brief Note Patient seen and examined this morning. Plan of care discussed with the medical team and the patient. Available lab work and radiology test reports were reviewed. Patient does not report any new symptoms. He denies any chest pain difficulty breathing fever chills nausea vomiting or abdominal pain. He overall appears comfortable. Patient undergoing dialysis now. He reports increasing urine output. He reports disturbed sleep last night. Assessment and plan * Acute renal failure- most likely ATN . case discussed with nephrology Dr. Reese yesterday. Patient is showing signs of improvement and he may come off dialysis at some point. His urine output is increasing. No plan for renal biopsy this point given rapid improvement. * Anion gap metabolic acidosis * Alcohol abuse and alcohol intoxication * Hyperkalemia * Hyponatremia * Hypomagnesemia * History of diabetes * Persistent tachycardia- of unclear etiology; patient is being followed up by cardiology * Positive troponin- more probably is from acute renal failure * Uncontrolled hypertension- improved and stable current medications * Persistent elevated WBC count of unclear etiology without any clear source of infection Plan * Given improvement in creatinine patient may come off dialysis in near future . His urine output is likely underreported given that he is going to bathroom on his own. He reports increasing urine output and his fluid restriction needs to be liberalized with impending diuretic phase of ATN. Fluid intake should be equal to his output plus 500 ml. Given rapid improvement biopsy may no longer be indicated at this point. * Recheck labs only with HD * Monitor BP closely; continue labetalol dose 200 mg twice a day * add ambien prn at night for sleep * Check BEP in am. Exam: General: Patient awake alert oriented without any distress CVS: S1 plus S2 without any murmur or gallops Chest: Few scattered crepitation without any wheeze. There is no respiratory distress. 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 Laboratory Tests 04/30 04/29 0630 1650 Chemistry Sodium (137 - 145 mmol/L) 140 Cancelled Potassium (3.5 - 5.1 mmol/L) 4.1 Cancelled Chloride (98 - 107 mmol/L) 101 Cancelled Carbon Dioxide (22 - 30 mmol/L) 26 Cancelled Anion Gap (5 - 16) 13 Cancelled BUN (9 - 20 mg/dL) 28 H Cancelled Creatinine (0.7 - 1.2 mg/dL) 4.1 H Cancelled Estimated GFR (>60 ml/min) 16 L BUN/Creatinine Ratio (7 - 25 %) 6.8 L Cancelled Hematology CBC w Diff NO MAN DIFF REQ Cancelled WBC (4.8 - 10.8 /CUMM) 11.5 H Cancelled RBC (4.70 - 6.10 /CUMM) 3.57 L Cancelled Hgb (14.0 - 18.0 G/DL) 7.9 L Cancelled Hct (42 - 52 %) 25.0 L Cancelled MCV (80.0 - 94.0 FL) 69.9 L Cancelled MCH (27.0 - 31.0 PG) 22.3 L Cancelled RDW (11.5 - 14.5 %) 16.2 H Cancelled Plt Count (130 - 400 /CUMM) 205 Cancelled MPV (7.4 - 10.4 FL) 7.6 Cancelled Gran % (42.2 - 75.2 %) 79.7 H Lymphocytes % (20.5 - 51.1 %) 15.0 L Monocytes % (1.7 - 9.3 %) 3.7 Eosinophils % (0 - 5 %) 1.4 Basophils % (0.0 - 2.0 %) 0.2 Absolute Granulocytes (1.4 - 6.5 /CUMM) 9.2 H Absolute Lymphocytes (1.2 - 3.4 /CUMM) 1.7 Absolute Monocytes (0.10 - 0.60 /CUMM) 0.4 Absolute Eosinophils (0.0 - 0.7 /CUMM) 0.2 Absolute Basophils (0.0 - 0.2 /CUMM) 0 PUBS MCHC (33.0 - 37.0 G/DL) 31.9 L Cancelled Vital Signs Date Time Temp Pulse Resp B/P B/P Pulse O2 O2 Flow FiO2 Mean Ox Delivery Rate 04/30 922 80 132/72 04/30 922 80 132/72 04/30 722 98.6 81 20 140/70 96 Room Air 04/29 2243 99.6 77 20 138/58 97 Room Air 04/29 2135 99.9 77 20 138/58 04/29 1416 97.9 87 20 152/54 99 04/29 1415 97.9 87 20 152/54 04/29 1414 97.9 87 20 152/54 Intake & Output 04/30 1600 04/30 0800 04/30 0000 Intake Total 50 480 Output Total 700 250 100 Balance -700 -200 380 Intake, Oral 50 480 Output, Urine 700 250 100 Patient 233 lb 233 lb Weight Weight Standing Scale Measurement Method
[2017-04-30 15:02] VITALS: BP 128/74
[2017-04-30 22:32] VITALS: BP 132/70
[2017-05-01 06:28] VITALS: BP 140/70
[2017-05-01 07:47] LABS: ABSOLUTE BASOPHIL COUNT 0 /CUMM (0.0-0.2); ABSOLUTE EOSINOPHIL COUNT 0.1 /CUMM (0.0-0.7); ABSOLUTE GRANULOCYTE CT 9.7 /CUMM (1.4-6.5); ABSOLUTE LYMPH COUNT 1.2 /CUMM (1.2-3.4); ABSOLUTE MONOCYTE COUNT 0.4 /CUMM (0.10-0.60); BASOPHIL % 0.3 % (0.0-2.0); GRANULOCYTE % 84.1 % (42.2-75.2); HEMATOCRIT 24.4 % (42-52); MEAN CORPUSCULAR HGB 22.2 PG (27.0-31.0); MEAN CORPUSCULAR HGB CONC 31.7 G/DL (33.0-37.0); MEAN PLATELET VOLUME 7.9 FL (7.4-10.4); PLATELET COUNT 214 /CUMM (130-400); RBC DISTRIBUTION WIDTH 16.5 % (11.5-14.5); RED BLOOD CELL CT 3.49 /CUMM (4.70-6.10)
[2017-05-01 08:27] LABS: WHITE BLOOD CELL COUNT 11.5 /CUMM (4.8-10.8)
--- NOTE | 2017-05-01 08:43 | PN- Att Addend ---
Attending Addendum Attending Brief Note Patient seen and examined this morning. Plan of care discussed with the medical team and the patient. Available lab work and radiology test reports were reviewed. Patient does not report any new symptoms. He denies any chest pain difficulty breathing fever chills nausea vomiting or abdominal pain. He overall appears comfortable. Patient undergoing dialysis now. He reports increasing urine output. Assessment and plan * Acute renal failure- most likely ATN . Patient is showing signs of improvement and he may come off dialysis at some point. His urine output is increasing. No plan for renal biopsy this point given rapid improvement. * Anion gap metabolic acidosis * Alcohol abuse and alcohol intoxication * Hyperkalemia * Hyponatremia * Hypomagnesemia * History of diabetes * Persistent tachycardia- of unclear etiology; patient is being followed up by cardiology * Positive troponin- more probably is from acute renal failure * Uncontrolled hypertension- improved and stable current medications * Persistent elevated WBC count of unclear etiology without any clear source of infection Plan * Given improvement in creatinine patient may come off dialysis in near future . His urine output is likely underreported given that he is going to bathroom on his own. He reports increasing urine output and his fluid restriction needs to be liberalized with impending diuretic phase of ATN. Fluid intake should be equal to his output plus 500 ml. Given rapid improvement biopsy may no longer be indicated at this point. * Recheck labs in a.m. * Plan for dialysis Tuesday * Monitor BP closely; continue labetalol dose 200 mg twice a day * Continue ambien prn at night for sleep * Check BEP in am. Exam: General: Patient awake alert oriented without any distress CVS: S1 plus S2 without any murmur or gallops Chest: Few scattered crepitation without any wheeze. There is no respiratory distress. 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 Laboratory Tests 05/01 0635 Chemistry Sodium (137 - 145 mmol/L) 137 Potassium (3.5 - 5.1 mmol/L) 3.8 Chloride (98 - 107 mmol/L) 100 Carbon Dioxide (22 - 30 mmol/L) 24 Anion Gap (5 - 16) 13 BUN (9 - 20 mg/dL) 32 H Creatinine (0.7 - 1.2 mg/dL) 4.9 H Estimated GFR (>60 ml/min) 13 L BUN/Creatinine Ratio (7 - 25 %) 6.5 L Hematology CBC w Diff NO MAN DIFF REQ WBC (4.8 - 10.8 /CUMM) 11.5 H RBC (4.70 - 6.10 /CUMM) 3.49 L Hgb (14.0 - 18.0 G/DL) 7.7 L Hct (42 - 52 %) 24.4 L MCV (80.0 - 94.0 FL) 70.0 L MCH (27.0 - 31.0 PG) 22.2 L RDW (11.5 - 14.5 %) 16.5 H Plt Count (130 - 400 /CUMM) 214 MPV (7.4 - 10.4 FL) 7.9 Gran % (42.2 - 75.2 %) 84.1 H Lymphocytes % (20.5 - 51.1 %) 10.7 L Monocytes % (1.7 - 9.3 %) 3.9 Eosinophils % (0 - 5 %) 1.0 Basophils % (0.0 - 2.0 %) 0.3 Absolute Granulocytes (1.4 - 6.5 /CUMM) 9.7 H Absolute Lymphocytes (1.2 - 3.4 /CUMM) 1.2 Absolute Monocytes (0.10 - 0.60 /CUMM) 0.4 Absolute Eosinophils (0.0 - 0.7 /CUMM) 0.1 Absolute Basophils (0.0 - 0.2 /CUMM) 0 PUBS MCHC (33.0 - 37.0 G/DL) 31.7 L Vital Signs Date Time Temp Pulse Resp B/P B/P Pulse O2 O2 Flow FiO2 Mean Ox Delivery Rate 05/01 628 98.3 59 18 140/70 95 Room Air 04/302 99.0 80 18 132/70 100 Room Air 04/30 2051 80 132/70 04/30 1502 99.4 70 18 128/74 97 Room Air 04/30 0922 80 132/72 04/30 922 80
--- NOTE | 2017-05-01 09:07 | PN- Housestaff ---
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 The patient was sitting in the bed and watching television. The patient has no current complaints. He wants to leave the hospital on Tuesday. He says that there is nothing for him to do over here he is going to get depressed if this continues. I explained the reason of him being in the hospital. He says he understands but is getting bored over here. There is no fever chest pain palpitations or shortness of breath. There were no overnight acute events. The patient has been himself documenting his ins and outs. Review of Systems Constitutional: Denies: chills, fever, malaise. Cardiovascular: Denies: chest pain, orthopena, peripheral edema. Respiratory: Denies: cough, orthopnea, sputum production. Gastrointestinal: Reports: no symptoms. Musculoskeletal: Reports: no symptoms. Skin: Reports: no symptoms. Neurological/Psychological: Reports: no symptoms. Objective Last 24 Hrs of Vital Signs/I&O Vital Signs Date Time Temp Pulse Resp B/P B/P Pulse O2 O2 Flow FiO2 Mean Ox Delivery Rate 05/01 0628 98.3 59 18 140/70 95 Room Air 04/30 2232 99.0 80 18 132/70 100 Room Air 04/30 2051 80 132/70 04/30 1502 99.4 70 18 128/74 97 Room Air 04/30 0922 80 132/72 04/30 0922 80 132/72 Intake & Output 05/01 1600 05/01 0800 05/01 0000 Intake Total 50 670 Output Total 700 675 Balance -650 -5 Intake, Oral 50 670 Output, Urine 700 675 Patient 235 lb Weight Weight Standing Scale Measurement Method Physical Exam General Appearance: Alert, Oriented X3, Cooperative, No Acute Distress Skin: No Rashes, No Breakdown, R IJ HD cath, Nimesh catheter site intact and without any surrounding erythema HEENT: Atraumatic Neck: Supple Cardiovascular: Normal S1, Normal S2, No Murmurs, Gallops Lungs: Clear to Auscultation, Normal Air Movement Abdomen: Normal Bowel Sounds, Soft, No Tenderness Neurological: Normal Speech Current Medications: Current Medications Sig/Edward Start time Last Medication Dose Route Stop Time Status Admin Acetaminophen 650 MG Q6P PRN 04/19 1915 AC PO Amlodipine Besylate 10 MG DAILY 04/24 1000 AC 04/30 PO 0922 Atorvastatin Calcium 10 MG 1700 04/23 1700 AC 04/30 PO 1628 Benzonatate 100 MG TID 04/24 1400 AC 04/30 PO 205 Calcitriol 1 MCG MoWeFr@1000 PRN 04/26 1215 AC IV Calcium Carbonate 1,250 MG WITH MEALS 04/20 1700 AC 05/01 PO 0748 Epoetin Jeyson 6,000 UNIT MoWeFr@1000 PRN 04/26 1215 AC IV Folic Acid 1 MG DAILY 04/20 1000 AC 04/30 PO 0922 Heparin Sodium 5,000 UNIT Q8 04/20 1730 AC 05/01 (Porcine) SC 0640 Insulin Aspart 0 TIDAC 04/22 1700 AC 05/01 SC 0750 Labetalol HCl 200 MG BID 04/25 220 AC 04/30 PO 205 Melatonin 5 MG AT BEDTIME 04/27 0030 DC 04/29 PO 2309 Multivitamins 1 TAB DAILY 04/22 1000 AC 04/30 PO 0922 Omeprazole 40 MG DAILY AC 04/21 0700 AC 05/01 PO 0640 Ondansetron HCl 4 MG Q8P PRN 04/19 1915 AC IV Thiamine HCl 100 MG DAILY 04/20 1000 AC 04/30 PO 0922 Zolpidem Tartrate 5 MG AT BEDTIME 04/30 220 AC 04/30 PO 2338 Last 24 Hrs of Lab/Ozzie Results Last 24 Hrs of Labs/Mics: Laboratory Tests 05/01/17 0635: Anion Gap 13, Estimated GFR 13 L, BUN/Creatinine Ratio 6.5 L, CBC w Diff NO MAN DIFF REQ, RBC 3.49 L, MCV 70.0 L, MCH 22.2 L, RDW 16.5 H, MPV 7.9, Gran % 84.1 H, Lymphocytes % 10.7 L, Monocytes % 3.9, Eosinophils % 1.0, Basophils % 0.3, Absolute Granulocytes 9.7 H, Absolute Lymphocytes 1.2, Absolute Monocytes 0.4, Absolute Eosinophils 0.1, Absolute Basophils 0, PUBS MCHC 31.7 L Assessment/Plan Assessment: This is 46-year-old man with past medical history of hypertension, hyperlipidemia, type 2 diabetes mellitus and alcohol abuse with c/of a cough productive of yellowish sputum and some blood x several months that has been worse over last several weeks.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 -Anion Gap 34 H, Estimated GFR 4 L, BUN/Creatinine Ratio 6.1 L, Glucose 133 H, Calcium 6.7 L, Phosphorus 10.8 H Creatine Kinase 590 H, -Urine Clarity HAZY H,Urine Protein >=300 H Urine WBC 3-5 H, Ur Epithelial Cells RENAL H, Granular Casts MANY H, Urine Hemoglobin LARGE H, Urine Glucose 100 H -CXR: No acute cardiopulmonary process. -CT ABD & PELVIS W/O IV CONTRAST: 1. No evidence of obstructive uropathy. 2. Otherwise, no acute abnormalities in the abdomen or pelvis. -Initial ED EKG: normal intervals, normal p-waves, normal sinus rhythm, rate ( 104), nonspecific ST T wave changes. He was admitted to ICU 04/19 for close monitoring and is now being transferred to general medicine floor. Acute Renal failure--Dialysis tomorrow Most likely Renal vs prerenal. Considering lisinpril contribution on exsisting hypotension. Per records pateint kidney functions were completely normal in December.His urine output is likely underreported given that he is going to bathroom on his own. He reports increasing urine output -Utox obtained here is negative. -Hep Panel,MELODY, ANCA, C3,C4 ,SPEP negative. -As per Nephro if with his increasing urine output, his serum creatinine remains the same from Tuesday through Tuesday and Tuesday or, improves, this may be a sign that the kidneys are beginning to recover and that dialysis will not longer be necessary * Creatinine today is 4.6 * Patient has been very diligently recording his ins and outs,yesterday intake 1200ml output 1425 ml. His fluid restriction needs to be liberalized with impending diuretic phase of ATN. * Monitor daily weights * Given rapid improvement biopsy may no longer be indicated at this point. * Dialysis on Tuesday 12pm HTN and Tachycardia lisinopril and hydrochlorothiazide were held on admission. Amlodipine was continued. We have increased labetalol dose to 200 mg twice a day -avoid nephrotoxic medications.His BP 120/58 and HR 74 today * Continue Labetalol 200mg BID Insomia * Continue ambien prn at night for sleep Electrolyte derangements (Hyperkalemia/Hyponatremia/Hypomagnesemia/ Hypocalcemia /Hyperphosphatemia) Electrolytes are getting better with dialysis. He was also put on fluid restriction initially 800 and then later 1000 mL/day. He was also started on culture globulin IV calcitriol by business strategy manager. * CONTINUE TO MONITOR AND REPLETE History of diabetes Metformin held * on NovoLog insulin sliding scale. Aspiration pneumonia (PEN allergic) Patient remained afebrile throughout hospitalization. His WBC count was elevated. He had persistent productive cough bringing up clear phlegm. No episode of hemoptysis in hospital. CT chest was done on 04/20/17. CT CHEST WO IV CONTRAST Patchy multifocal groundglass opacification. The appearance is nonspecific,but consider infectious or inflammatory etiologies. There are neither pleural effusions nor pneumothoraces. * pt is on clindamycin 600mg q8h Microcytic anemia H/H remained stable. * on Epogen by Neophro with Dialysis. Severe Anion gap metabolic acidosis- resolved most likely secondary to alcohol intoxication and metformin induced lactic acidosis Anion gap was 34 on admission. Improving after dialysis. Today anion gap has closed. Positive troponins--demand ischemia Trops 0.10 on admission and trended up to 0.11. Peak trop was 0.15. No EKG changes. Cardio was consulted. Per cardio its likely demand ischemia and poor renal clearance. Patient is stable from a cardiac standpoint. ECHO was ordered. No further cardiac workup was recommended. ECHO: CONCLUSIONS Mild concentric left ventricular hypertrophy. Normal left ventricular ejection fraction visually estimated at >65. No obvious regional wall motion abnormalities.No significant valve abnormalities. Physiologic valvular regurgitation. The left atrium is normal in size. 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 Drinks 6-7 glasses of vodka everyday. He was put on CIWA protocol and started on scheduled and IV Ativan as needed per CIWA. Inpatient treatment finished. Code: Full DVT PPx: Heparin SQ Diet: Consistent Carbohydrate 2 Problem List: 1. Acute renal failure Pain Ratin Pain Location: none Pain Goal: Pain 4 or less Pain Plan: none Tomorrow's Labs & Rationales: cbc bep
[2017-05-01 14:37] VITALS: BP 125/70
[2017-05-01 21:45] VITALS: BP 142/82
[2017-05-02 07:08] VITALS: BP 162/88
--- NOTE | 2017-05-02 08:15 | PN- Housestaff ---
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 The patient was sitting on the chair and watching television. He was eating breakfast. He did not have any current complaints. That dry cough persists but it gets better with lozenges. The b/l lower extremity edema is better he is very concerned about his kidney numbers today. He has the patient has been keeping her record of his input and output. He there is no fever chest pain palpitations or shortness of breath. There were no overnight acute events. Patient is scheduled for dialysis today around 12 PM. Review of Systems Constitutional: Denies: diaphoresis, fever, weakness. Cardiovascular: Denies: chest pain, orthopena. Respiratory: Reports: cough. Denies: hemoptysis. Gastrointestinal: Reports: no symptoms. Genitourinary: Reports: no symptoms. Objective Last 24 Hrs of Vital Signs/I&O Vital Signs Date Time Temp Pulse Resp B/P B/P Pulse O2 O2 Flow FiO2 Mean Ox Delivery Rate 05/02 0708 99.1 90 18 162/88 96 Room Air 05/01 2146 90 126/72 05/01 2145 98.4 83 20 142/82 99 Room Air 05/01 1437 98.8 94 20 125/70 95 05/01 0903 60 142/72 05/01 0902 60 140/72 Intake & Output 05/02 1600 05/02 0800 05/02 0000 Intake Total 80 160 Output Total 1450 Balance -1370 160 Intake, Oral 80 160 Output, Urine 1450 Patient 233 lb Weight Weight Standing Scale Measurement Method Physical Exam General Appearance: Alert, Oriented X3, Cooperative, No Acute Distress Skin: No Rashes, No Breakdown, R IJ HD catheter site intact and without any surrounding erythema HEENT: Atraumatic Cardiovascular: Normal S1, Normal S2, No Murmurs Lungs: Clear to Auscultation, Normal Air Movement Abdomen: Normal Bowel Sounds, Soft, No Tenderness Neurological: Normal Gait, Normal Speech Extremities: b/l lower extremity edema improving Current Medications: Current Medications Sig/Edward Start time Last Medication Dose Route Stop Time Status Admin Acetaminophen 650 MG Q6P PRN 04/19 1915 AC PO Amlodipine Besylate 10 MG DAILY 04/24 1000 AC 05/01 PO 0902 Atorvastatin Calcium 10 MG 1700 04/23 1700 AC 05/01 PO 1614 Benzonatate 100 MG TID 04/24 1400 AC 05/01 PO 2146 Calcitriol 1 MCG MoWeFr@1000 PRN 04/26 1215 AC IV Calcium Carbonate 1,250 MG WITH MEALS 04/20 1700 AC 05/02 PO 0803 Epoetin Jeyson 6,000 UNIT MoWeFr@1000 PRN 04/26 1215 AC IV Folic Acid 1 MG DAILY 04/20 1000 AC 05/01 PO 0902 Heparin Sodium 5,000 UNIT Q8 04/20 1730 AC 05/02 (Porcine) SC 0614 Insulin Aspart 0 TIDAC 04/22 1700 AC 05/02 SC 0805 Labetalol HCl 200 MG BID 04/25 2200 AC 05/01 PO 2146 Multivitamins 1 TAB DAILY 04/22 1000 AC 05/01 PO 0902 Omeprazole 40 MG DAILY AC 04/21 0700 AC 05/02 PO 0613 Ondansetron HCl 4 MG Q8P PRN 04/19 1915 AC IV Thiamine HCl 100 MG DAILY 04/20 1000 AC 05/01 PO 0903 Zolpidem Tartrate 5 MG AT BEDTIME 04/30 2200 AC 05/01 PO 2327 Assessment/Plan Assessment: This is 46-year-old man with past medical history of hypertension, hyperlipidemia, type 2 diabetes mellitus and alcohol abuse with c/of a cough productive of yellowish sputum and some blood x several months that has been worse over last several weeks.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 -Anion Gap 34 H, Estimated GFR 4 L, BUN/Creatinine Ratio 6.1 L, Glucose 133 H, Calcium 6.7 L, Phosphorus 10.8 H Creatine Kinase 590 H, -Urine Clarity HAZY H,Urine Protein >=300 H Urine WBC 3-5 H, Ur Epithelial Cells RENAL H, Granular Casts MANY H, Urine Hemoglobin LARGE H, Urine Glucose 100 H -CXR: No acute cardiopulmonary process. -CT ABD & PELVIS W/O IV CONTRAST: 1. No evidence of obstructive uropathy. 2. Otherwise, no acute abnormalities in the abdomen or pelvis. -Initial ED EKG: normal intervals, normal p-waves, normal sinus rhythm, rate ( 104), nonspecific ST T wave changes. He was admitted to ICU 04/19 for close monitoring and is now being transferred to general medicine floor. Acute Renal failure--Dialysis tomorrow Most likely Renal vs prerenal. Considering lisinpril contribution on exsisting hypotension. Per records pateint kidney functions were completely normal in December.His urine output is likely underreported given that he is going to bathroom on his own. He reports increasing urine output -Utox obtained here is negative. -Hep Panel,MELODY, ANCA, C3,C4 ,SPEP negative. -As per Nephro if with his increasing urine output, his serum creatinine remains the same from Tuesday through Tuesday and Tuesday or, improves, this may be a sign that the kidneys are beginning to recover and that dialysis will not longer be necessary * Creatinine today is 4.8 * Patient has been very diligently recording his ins and outs,yesterday intake 888 output 1425 ml. His fluid restriction hsd been increased to 2000ml * Monitor daily weights * Given rapid improvement biopsy may no longer be indicated at this point. * Patient will not get dialysis today as per nephrology recommendation since creatinine has improved by 0.1 from 4.9 yesterday to 4.8 today * Will repeat BMP tomorrow and decide whether he requires dialysis are not * Given improvement in creatinine patient may come off dialysis in near future HTN and Tachycardia lisinopril and hydrochlorothiazide were held on admission. Amlodipine was continued. We have increased labetalol dose to 200 mg twice a day -avoid nephrotoxic medications.His BP 120/58 and HR 74 today * Continue Labetalol 200mg BID Insomia * Continue ambien prn at night for sleep Electrolyte derangements (Hyperkalemia/Hyponatremia/Hypomagnesemia/ Hypocalcemia /Hyperphosphatemia) Electrolytes are getting better with dialysis. He was also put on fluid restriction initially 800 and then later 1000 mL/day. He was also started on culture globulin IV calcitriol by ornamental ironworker. * CONTINUE TO MONITOR AND REPLETE History of diabetes Metformin held * on NovoLog insulin sliding scale. Aspiration pneumonia (PEN allergic) Patient remained afebrile throughout hospitalization. His WBC count was elevated. He had persistent productive cough bringing up clear phlegm. No episode of hemoptysis in hospital. CT chest was done on 04/20/17. CT CHEST WO IV CONTRAST Patchy multifocal groundglass opacification. The appearance is nonspecific,but consider infectious or inflammatory etiologies. pt was on clindamycin 600mg f0n---mblacwfsp course Microcytic anemia H/H remained stable. * on Epogen by Neophro with Dialysis. Severe Anion gap metabolic acidosis- resolved most likely secondary to alcohol intoxication and metformin induced lactic acidosis Anion gap was 34 on admission. Improving after dialysis. Today anion gap has closed. Positive troponins--demand ischemia and poor renal cl Trops 0.10 on admission and trended up to 0.11. Peak trop was 0.15. No EKG changes. Cardio was consulted. Per cardio its likely demand ischemia and poor renal clearance. Patient is stable from a cardiac standpoint. ECHO was ordered. No further cardiac workup was recommended. ECHO: CONCLUSIONS Mild concentric left ventricular hypertrophy. Normal left ventricular ejection fraction visually estimated at >65. No obvious regional wall motion abnormalities.No significant valve abnormalities. Physiologic valvular regurgitation. The left atrium is normal in size. 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 Drinks 6-7 glasses of vodka everyday. He was put on CIWA protocol and started on scheduled and IV Ativan as needed per CIWA. Inpatient treatment finished. Code: Full DVT PPx: Heparin SQ Diet: Consistent Carbohydrate 2 Problem List: 1. Acute renal failure 2. Hyperkalemia 3. Hyponatremia Pain Ratin Pain Location: none Pain Goal: Pain 4 or less Pain Plan: n/a Tomorrow's Labs & Rationales: cbc bep
[2017-05-02 10:55] LABS: ABSOLUTE BASOPHIL COUNT 0 /CUMM (0.0-0.2); ABSOLUTE EOSINOPHIL COUNT 0.1 /CUMM (0.0-0.7); ABSOLUTE GRANULOCYTE CT 8.7 /CUMM (1.4-6.5); ABSOLUTE LYMPH COUNT 1.2 /CUMM (1.2-3.4); ABSOLUTE MONOCYTE COUNT 0.3 /CUMM (0.10-0.60); BASOPHIL % 0.3 % (0.0-2.0); EOSINOPHIL % 1.1 % (0-5); HEMATOCRIT 24.9 % (42-52); MEAN CORPUSCULAR HGB CONC 31.4 G/DL (33.0-37.0); MEAN CORPUSCULAR VOLUME 69.9 FL (80.0-94.0); MEAN PLATELET VOLUME 7.8 FL (7.4-10.4); PLATELET COUNT 232 /CUMM (130-400); RBC DISTRIBUTION WIDTH 16.6 % (11.5-14.5); RED BLOOD CELL CT 3.57 /CUMM (4.70-6.10); WHITE BLOOD CELL COUNT 10.3 /CUMM (4.8-10.8)
--- NOTE | 2017-05-02 12:07 | PN- Att Addend ---
Attending Addendum Attending Brief Note Patient seen and examined this morning. Plan of care discussed with the medical team and the patient. Available lab work and radiology test reports were reviewed. Patient does not report any new symptoms. He denies any chest pain difficulty breathing fever chills nausea vomiting or abdominal pain. He overall appears comfortable. He reports increasing urine output. Assessment and plan * Acute renal failure- most likely ATN . Patient is showing signs of improvement and he may come off dialysis at some point. His urine output is increasing. No plan for renal biopsy this point given rapid improvement. plan for HD today. Await renal decision on HD in future. * Anion gap metabolic acidosis * Alcohol abuse and alcohol intoxication * Hyperkalemia * Hyponatremia * Hypomagnesemia * History of diabetes * Persistent tachycardia- of unclear etiology; patient is being followed up by cardiology * Positive troponin- more probably is from acute renal failure * Uncontrolled hypertension- improved and stable current medications * Persistent elevated WBC count of unclear etiology without any clear source of infection Plan * Given improvement in creatinine patient may come off dialysis in near future . His urine output is likely underreported given that he is going to bathroom on his own. He reports increasing urine output and his fluid restriction needs to be liberalized with impending diuretic phase of ATN. Fluid intake should be equal to his output plus 500 ml. Given rapid improvement biopsy may no longer be indicated at this point. * Recheck labs in a.m. * Plan for dialysis Tuesday * Monitor BP closely; continue labetalol dose 200 mg twice a day * Continue ambien prn at night for sleep * Check BEP in am. Exam: General: Patient awake alert oriented without any distress CVS: S1 plus S2 without any murmur or gallops Chest: Few scattered crepitation without any wheeze. There is no respiratory distress. Abdomen: Soft nontender, bowel sound present, no guarding or rebound FEDERAL JUDGE: Awake alert oriented without any focal neuro deficit and follows command appropriately Extremities: No edema; no clubbing or cyanosis noted MADDY cath intact. Laboratory Tests 05/02 0715 Chemistry Sodium (137 - 145 mmol/L) 137 Potassium (3.5 - 5.1 mmol/L) 3.7 Chloride (98 - 107 mmol/L) 102 Carbon Dioxide (22 - 30 mmol/L) 21 L Anion Gap (5 - 16) 14 BUN (9 - 20 mg/dL) 33 H Creatinine (0.7 - 1.2 mg/dL) 4.8 H Estimated GFR (>60 ml/min) 13 L BUN/Creatinine Ratio (7 - 25 %) 6.9 L Hematology CBC w Diff Pending WBC Pending RBC Pending Hgb Pending Hct Pending MCV Pending MCH Pending RDW Pending Plt Count Pending MPV Pending Gran % Pending Lymphocytes % Pending Monocytes % Pending Eosinophils % Pending Basophils % Pending Absolute Granulocytes Pending Absolute Lymphocytes Pending Absolute Monocytes Pending Absolute Eosinophils Pending Absolute Basophils Pending PUBS MCHC Pending Vital Signs Date Time Temp Pulse Resp B/P B/P Pulse O2 O2 Flow FiO2 Mean Ox Delivery Rate 05/02 0855 88 160/86 05/02 0854 88 160/86 05/02 0708 99.1 90 18 162/88 96 Room Air 05/01 2146 90 126/72 05/01 2145 98.4 83 20 142/82 99 Room Air 05/01 1437 98.8 94 20 125/70 95
[2017-05-02 12:15] LABS: GRANULOCYTE % 84.5 % (42.2-75.2)
[2017-05-02 15:42] VITALS: BP 120/70
--- NOTE | 2017-05-02 18:51 | PN- Nephrology ---
Assessment/Plan Assessment: 1. SOHAIL - may be resolving based on urine output and today's serum creat level; no uremic sx or significant volume issues 2. Hyponatremia - resolved 3. Metabolic acidosis - controlled Suggestion: Will hold dialysis today and re-assess in a.m. tomorrow Subjective Subjective: Pt denies any GI or other uremic sx. No sob or pain. Creat down to 4.8 (4.9) with excellent urine output. Lytes ok. Objective Vital Signs and I&Os Vital Signs Date Time Temp Pulse Resp B/P B/P Pulse O2 O2 Flow FiO2 Mean Ox Delivery Rate 05/02 1542 98.1 80 20 120/70 100 05/02 0855 88 160/86 05/02 0854 88 160/86 05/02 0708 99.1 90 18 162/88 96 Room Air 05/01 2146 90 126/72 05/01 2145 98.4 83 20 142/82 99 Room Air Intake & Output 05/02 1600 05/02 0400 05/01 1600 05/01 0400 04/30 1600 04/30 0400 Intake Total 730 160 470 670 530 480 Output Total 2000 1550 675 950 100 Balance -1270 160 -1080 -5 -420 380 Intake, Oral 730 160 470 670 530 480 Output, Urine 2000 1550 675 950 100 Patient 233 lb 235 lb 233 lb 233 lb Weight Weight Standing Scale Standing Scale Standing Scale Measurement Method Physical Exam: General: Well-developed, WM in NAD Skin: No rash or jaundice HEENT: Conjunctivae pale, sclerae anicteric, mucous membranes moist Neck: Without masses or thyromegaly, no supraclavicular or cervical adenopathy Chest: Clear to P&A Heart: Regular rate and rhythm without S3 or rub Abdomen: Obese, soft and nontender without palpable masses or organomegaly Extremities: 1+ edema without cyanosis Neuro: No focal findings, no asterixis or myoclonus Results Pertinent Lab Results: Laboratory Tests 05/02 05/01 0715 0635 Chemistry Sodium (137 - 145 mmol/L) 137 137 Potassium (3.5 - 5.1 mmol/L) 3.7 3.8 Chloride (98 - 107 mmol/L) 102 100 Carbon Dioxide (22 - 30 mmol/L) 21 L 24 Anion Gap (5 - 16) 14 13 BUN (9 - 20 mg/dL) 33 H 32 H Creatinine (0.7 - 1.2 mg/dL) 4.8 H 4.9 H Estimated GFR (>60 ml/min) 13 L 13 L BUN/Creatinine Ratio (7 - 25 %) 6.9 L 6.5 L Hematology CBC w Diff NO MAN DIFF REQ NO MAN DIFF REQ WBC (4.8 - 10.8 /CUMM) 10.3 11.5 H RBC (4.70 - 6.10 /CUMM) 3.57 L 3.49 L Hgb (14.0 - 18.0 G/DL) 7.8 L 7.7 L Hct (42 - 52 %) 24.9 L 24.4 L MCV (80.0 - 94.0 FL) 69.9 L 70.0 L MCH (27.0 - 31.0 PG) 22.0 L 22.2 L RDW (11.5 - 14.5 %) 16.6 H 16.5 H Plt Count (130 - 400 /CUMM) 232 214 MPV (7.4 - 10.4 FL) 7.8 7.9 Gran % (42.2 - 75.2 %) 84.5 H 84.1 H Lymphocytes % (20.5 - 51.1 %) 11.7 L 10.7 L Monocytes % (1.7 - 9.3 %) 2.4 3.9 Eosinophils % (0 - 5 %) 1.1 1.0 Basophils % (0.0 - 2.0 %) 0.3 0.3 Absolute Granulocytes (1.4 - 6.5 /CUMM) 8.7 H 9.7 H Absolute Lymphocytes (1.2 - 3.4 /CUMM) 1.2 1.2 Absolute Monocytes (0.10 - 0.60 /CUMM) 0.3 0.4 Absolute Eosinophils (0.0 - 0.7 /CUMM) 0.1 0.1 Absolute Basophils (0.0 - 0.2 /CUMM) 0 0 PUBS MCHC (33.0 - 37.0 G/DL) 31.4 L 31.7 L 04/30 0630 Chemistry Sodium (137 - 145 mmol/L) 140 Potassium (3.5 - 5.1 mmol/L) 4.1 Chloride (98 - 107 mmol/L) 101 Carbon Dioxide (22 - 30 mmol/L) 26 Anion Gap (5 - 16) 13 BUN (9 - 20 mg/dL) 28 H Creatinine (0.7 - 1.2 mg/dL) 4.1 H Estimated GFR (>60 ml/min) 16 L BUN/Creatinine Ratio (7 - 25 %) 6.8 L Hematology CBC w Diff NO MAN DIFF REQ WBC (4.8 - 10.8 /CUMM) 11.5 H RBC (4.70 - 6.10 /CUMM) 3.57 L Hgb (14.0 - 18.0 G/DL) 7.9 L Hct (42 - 52 %) 25.0 L MCV (80.0 - 94.0 FL) 69.9 L MCH (27.0 - 31.0 PG) 22.3 L RDW (11.5 - 14.5 %) 16.2 H Plt Count (130 - 400 /CUMM) 205 MPV (7.4 - 10.4 FL) 7.6 Gran % (42.2 - 75.2 %) 79.7 H Lymphocytes % (20.5 - 51.1 %) 15.0 L Monocytes % (1.7 - 9.3 %) 3.7 Eosinophils % (0 - 5 %) 1.4 Basophils % (0.0 - 2.0 %) 0.2 Absolute Granulocytes (1.4 - 6.5 /CUMM) 9.2 H Absolute Lymphocytes (1.2 - 3.4 /CUMM) 1.7 Absolute Monocytes (0.10 - 0.60 /CUMM) 0.4 Absolute Eosinophils (0.0 - 0.7 /CUMM) 0.2 Absolute Basophils (0.0 - 0.2 /CUMM) 0 PUBS MCHC (33.0 - 37.0 G/DL) 31.9 L
[2017-05-02 21:44] VITALS: BP 152/76
[2017-05-03 06:24] VITALS: BP 150/70
--- NOTE | 2017-05-03 07:03 | PN- Housestaff ---
See Addendum Subjective Follow-up For: New onset SOHAIL on dialysis Electrolyte derangements Hypertension Persistent dry cough Subjective: I have seen and examined the patient. The patient was sitting in the chair. He was watching television. He says that his cough is neither better nor worse. The lozenges help him with the cough. His bilateral lower extremity edema is getting better. There are no current complaint. There is no complaint of fever chest pain palpitations or shortness of breath. We are waiting for today's lab values decide whether he will go for dialysis or not. The patient has been very diligently keeping a record of his ins and outs. Review of Systems Constitutional: Reports: no symptoms. Cardiovascular: Denies: chest pain, edema. Respiratory: Reports: cough. Denies: orthopnea. Gastrointestinal: Reports: no symptoms. Genitourinary: Reports: no symptoms. Objective Last 24 Hrs of Vital Signs/I&O Vital Signs Date Time Temp Pulse Resp B/P B/P Pulse O2 O2 Flow FiO2 Mean Ox Delivery Rate 05/03 0624 97.9 76 21 150/70 97 Room Air 05/02 2241 152/76 05/02 2144 98.0 78 22 152/76 99 Room Air 05/02 1542 98.1 80 20 120/70 100 05/02 0855 88 160/86 05/02 0854 88 160/86 Intake & Output 05/03 1600 05/03 0800 05/03 0000 Intake Total 650 1300 Output Total 975 Balance -325 1300 Intake, IV 10 Intake, Oral 640 1300 Output, Urine 975 Patient 229 lb Weight Weight Standing Scale Measurement Method Physical Exam General Appearance: Alert, Oriented X3, Cooperative, No Acute Distress Skin: No Rashes, No Breakdown, R IJ HD catheter site intact and without any surrounding erythema HEENT: Atraumatic Neck: Supple Cardiovascular: Normal S1, Normal S2, No Murmurs Lungs: Clear to Auscultation, Normal Air Movement Abdomen: Normal Bowel Sounds, Soft, No Tenderness Neurological: Normal Speech Extremities: b/l lower extremity edema improving Current Medications: Current Medications Sig/Edward Start time Last Medication Dose Route Stop Time Status Admin Acetaminophen 650 MG Q6P PRN 04/19 1915 AC PO Amlodipine Besylate 10 MG DAILY 04/24 1000 AC 05/02 PO 0854 Atorvastatin Calcium 10 MG 1700 04/23 1700 AC 05/02 PO 1716 Benzonatate 100 MG TID 04/24 1400 AC 05/02 PO 2240 Calcitriol 1 MCG MoWeFr@1000 PRN 04/26 1215 AC IV Calcium Carbonate 1,250 MG WITH MEALS 04/20 1700 AC 05/03 PO 0801 Epoetin Jeyson 6,000 UNIT MoWeFr@1000 PRN 04/26 1215 AC IV Folic Acid 1 MG DAILY 04/20 1000 AC 05/02 PO 0854 Heparin Sodium 5,000 UNIT Q8 04/20 1730 AC 05/03 (Porcine) SC 0558 Insulin Aspart 0 TIDAC 04/22 1700 AC 05/03 SC 0801 Labetalol HCl 200 MG BID 04/25 2200 AC 05/02 PO 2241 Multivitamins 1 TAB DAILY 04/22 1000 AC 05/02 PO 0854 Omeprazole 40 MG DAILY AC 04/21 0700 AC 05/03 PO 0557 Ondansetron HCl 4 MG Q8P PRN 04/19 1915 AC IV Patient Medication 1 ED .[facility] 05/02 1412 CA Teaching ED 05/02 1413 Thiamine HCl 100 MG DAILY 04/20 1000 AC 05/02 PO 0855 Zolpidem Tartrate 5 MG AT BEDTIME 04/30 220 AC 05/02 PO 2303 Assessment/Plan Assessment: This is 46-year-old man with past medical history of hypertension, hyperlipidemia, type 2 diabetes mellitus and alcohol abuse with c/of a cough productive of yellowish sputum and some blood x several months that has been worse over last several weeks.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 -Anion Gap 34 H, Estimated GFR 4 L, BUN/Creatinine Ratio 6.1 L, Glucose 133 H, Calcium 6.7 L, Phosphorus 10.8 H Creatine Kinase 590 H, -Urine Clarity HAZY H,Urine Protein >=300 H Urine WBC 3-5 H, Ur Epithelial Cells RENAL H, Granular Casts MANY H, Urine Hemoglobin LARGE H, Urine Glucose 100 H -CXR: No acute cardiopulmonary process. -CT ABD & PELVIS W/O IV CONTRAST: 1. No evidence of obstructive uropathy. 2. Otherwise, no acute abnormalities in the abdomen or pelvis. -Initial ED EKG: normal intervals, normal p-waves, normal sinus rhythm, rate ( 104), nonspecific ST T wave changes. He was admitted to ICU 04/19 for close monitoring and is now being transferred to general medicine floor. Acute Renal failure--Dialysis tomorrow Most likely Renal vs prerenal. Considering lisinpril contribution on exsisting hypotension. Per records pateint kidney functions were completely normal in December.His urine output is likely underreported given that he is going to bathroom on his own. He reports increasing urine output -Utox obtained here is negative. -Hep Panel,MELODY, ANCA, C3,C4 ,SPEP negative. -As per Nephro if with his increasing urine output, his serum creatinine remains the same from Tuesday through Tuesday and Tuesday or, improves, this may be a sign that the kidneys are beginning to recover and that dialysis will not longer be necessary * Creatinine today is 4.2 * Patient has been very diligently recording his ins and outs,yesterday intake 888 output 1425 ml. His fluid restriction hsd been increased to 2000ml * Monitor daily weights * Given rapid improvement biopsy may no longer be indicated at this point. * Given improvement in creatinine patient may come off dialysis in near future HTN and Tachycardia lisinopril and hydrochlorothiazide were held on admission. Amlodipine was continued. We have increased labetalol dose to 200 mg twice a day -avoid nephrotoxic medications.His BP 120/58 and HR 74 today * Continue Labetalol 200mg BID Insomia * Continue ambien prn at night for sleep Electrolyte derangements (Hyperkalemia/Hyponatremia/Hypomagnesemia/ Hypocalcemia /Hyperphosphatemia) Electrolytes are getting better with dialysis. He was also put on fluid restriction initially 800 and then later 1000 mL/day. He was also started on culture globulin IV calcitriol by aviation technician. * CONTINUE TO MONITOR AND REPLETE History of diabetes Metformin held * on NovoLog insulin sliding scale. Aspiration pneumonia (PEN allergic) Patient remained afebrile throughout hospitalization. His WBC count was elevated. He had persistent productive cough bringing up clear phlegm. No episode of hemoptysis in hospital. CT chest was done on 04/20/17. CT CHEST WO IV CONTRAST Patchy multifocal groundglass opacification. The appearance is nonspecific,but consider infectious or inflammatory etiologies. pt was on clindamycin 600mg j7c---fijjlxqxj course Microcytic anemia H/H remained stable. * on Epogen by Neophro with Dialysis. Severe Anion gap metabolic acidosis- resolved most likely secondary to alcohol intoxication and metformin induced lactic acidosis Anion gap was 34 on admission. Improving after dialysis. Today anion gap has closed. Positive troponins--demand ischemia and poor renal cl Trops 0.10 on admission and trended up to 0.11. Peak trop was 0.15. No EKG changes. Cardio was consulted. Per cardio its likely demand ischemia and poor renal clearance. Patient is stable from a cardiac standpoint. ECHO was ordered. No further cardiac workup was recommended. ECHO: CONCLUSIONS Mild concentric left ventricular hypertrophy. Normal left ventricular ejection fraction visually estimated at >65. No obvious regional wall motion abnormalities.No significant valve abnormalities. Physiologic valvular regurgitation. The left atrium is normal in size. 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 Drinks 6-7 glasses of vodka everyday. He was put on CIWA protocol and started on scheduled and IV Ativan as needed per CIWA. Inpatient treatment finished. Code: Full DVT PPx: Heparin SQ Diet: Consistent Carbohydrate 2 Problem List: 1. Acute renal failure Pain Ratin Pain Location: n/a Pain Goal: Pain 4 or less Pain Plan: none Tomorrow's Labs & Rationales: cbc bep DVT/Prophylaxis: pharmacological, Heparin 500uni q8 SC cbc bep DVT/Prophylaxis: pharmacological, Heparin 500uni q8 SC
[2017-05-03 09:19] LABS: ABSOLUTE BASOPHIL COUNT 0 /CUMM (0.0-0.2); ABSOLUTE EOSINOPHIL COUNT 0.1 /CUMM (0.0-0.7); ABSOLUTE GRANULOCYTE CT 8.1 /CUMM (1.4-6.5); ABSOLUTE LYMPH COUNT 0.9 /CUMM (1.2-3.4); ABSOLUTE MONOCYTE COUNT 0.3 /CUMM (0.10-0.60); BASOPHIL % 0.4 % (0.0-2.0); EOSINOPHIL % 0.6 % (0-5); HEMATOCRIT 25.7 % (42-52); MEAN CORPUSCULAR HGB 22.5 PG (27.0-31.0); MEAN CORPUSCULAR HGB CONC 31.9 G/DL (33.0-37.0); MEAN CORPUSCULAR VOLUME 70.4 FL (80.0-94.0); MEAN PLATELET VOLUME 7.7 FL (7.4-10.4); PLATELET COUNT 242 /CUMM (130-400); RBC DISTRIBUTION WIDTH 16.7 % (11.5-14.5); RED BLOOD CELL CT 3.66 /CUMM (4.70-6.10); WHITE BLOOD CELL COUNT 9.4 /CUMM (4.8-10.8)
--- NOTE | 2017-05-03 11:31 | PN- Nephrology ---
Assessment/Plan Assessment: 1. SOHAIL - resolving 2. Hyponatremia - resolved 3. Metabolic acidosis - controlled 4. History of alcohol abuse Suggestion: 1. Ask IR to remove dialysis catheter today 2. Can discontinue calcitriol, calcium carbonate, Nephro-Llui and Epogen 3. Okay for discharge from Renal standpoint; will need outpt renal f/u - I gave him info to contact my office Subjective Subjective: Patient is entirely asymptomatic this morning and wants to go home. Urine output 2000 mL over the past 24 hours and serum creatinine down to 4.2. Objective Vital Signs and I&Os Vital Signs Date Time Temp Pulse Resp B/P B/P Pulse O2 O2 Flow FiO2 Mean Ox Delivery Rate 05/03 1002 90 120/68 05/03 1002 90 120/68 05/03 0624 97.9 76 21 150/70 97 Room Air 05/02 2241 152/76 05/02 2144 98.0 78 22 152/76 99 Room Air 05/02 1542 98.1 80 20 120/70 100 Intake & Output 05/03 1600 05/03 0400 05/02 0400 05/01 1600 05/01 0400 Intake Total 650 1300 730 160 470 670 Output Total 1375 1999 1550 675 Balance -725 1300 -1270 160 -1080 -5 Intake, IV 10 Intake, Oral 640 1300 730 160 470 670 Output, Urine 1375 1999 1550 675 Patient 229 lb 233 lb 235 lb Weight Weight Standing Scale Standing Scale Standing Scale Measurement Method Physical Exam: General: Well-developed, WM in NAD Skin: No rash or jaundice HEENT: Conjunctivae pale, sclerae anicteric, mucous membranes moist Neck: Without masses or thyromegaly, no supraclavicular or cervical adenopathy Chest: Clear to P&A Heart: Regular rate and rhythm without S3 or rub Abdomen: Obese, soft and nontender without palpable masses or organomegaly Extremities: 1-2+ edema without cyanosis Neuro: No focal findings, no asterixis or myoclonus Results Pertinent Lab Results: Laboratory Tests 05/03 05/02 0703 0715 Chemistry Sodium (137 - 145 mmol/L) 138 137 Potassium (3.5 - 5.1 mmol/L) 3.7 3.7 Chloride (98 - 107 mmol/L) 101 102 Carbon Dioxide (22 - 30 mmol/L) 21 L 21 L Anion Gap (5 - 16) 16 14 BUN (9 - 20 mg/dL) 33 H 33 H Creatinine (0.7 - 1.2 mg/dL) 4.2 H 4.8 H Estimated GFR (>60 ml/min) 15 L 13 L BUN/Creatinine Ratio (7 - 25 %) 7.9 6.9 L Hematology CBC w Diff NO MAN DIFF REQ NO MAN DIFF REQ WBC (4.8 - 10.8 /CUMM) 9.4 10.3 RBC (4.70 - 6.10 /CUMM) 3.66 L 3.57 L Hgb (14.0 - 18.0 G/DL) 8.2 L 7.8 L Hct (42 - 52 %) 25.7 L 24.9 L MCV (80.0 - 94.0 FL) 70.4 L 69.9 L MCH (27.0 - 31.0 PG) 22.5 L 22.0 L RDW (11.5 - 14.5 %) 16.7 H 16.6 H Plt Count (130 - 400 /CUMM) 242 232 MPV (7.4 - 10.4 FL) 7.7 7.8 Gran % (42.2 - 75.2 %) 86.0 H 84.5 H Lymphocytes % (20.5 - 51.1 %) 9.9 L 11.7 L Monocytes % (1.7 - 9.3 %) 3.1 2.4 Eosinophils % (0 - 5 %) 0.6 1.1 Basophils % (0.0 - 2.0 %) 0.4 0.3 Absolute Granulocytes (1.4 - 6.5 /CUMM) 8.1 H 8.7 H Absolute Lymphocytes (1.2 - 3.4 /CUMM) 0.9 L 1.2 Absolute Monocytes (0.10 - 0.60 /CUMM) 0.3 0.3 Absolute Eosinophils (0.0 - 0.7 /CUMM) 0.1 0.1 Absolute Basophils (0.0 - 0.2 /CUMM) 0 0 PUBS MCHC (33.0 - 37.0 G/DL) 31.9 L 31.4 L 07/23 0635 Chemistry Sodium (137 - 145 mmol/L) 137 Potassium (3.5 - 5.1 mmol/L) 3.8 Chloride (98 - 107 mmol/L) 100 Carbon Dioxide (22 - 30 mmol/L) 24 Anion Gap (5 - 16) 13 BUN (9 - 20 mg/dL) 32 H Creatinine (0.7 - 1.2 mg/dL) 4.9 H Estimated GFR (>60 ml/min) 13 L BUN/Creatinine Ratio (7 - 25 %) 6.5 L Hematology CBC w Diff NO MAN DIFF REQ WBC (4.8 - 10.8 /CUMM) 11.5 H RBC (4.70 - 6.10 /CUMM) 3.49 L Hgb (14.0 - 18.0 G/DL) 7.7 L Hct (42 - 52 %) 24.4 L MCV (80.0 - 94.0 FL) 70.0 L MCH (27.0 - 31.0 PG) 22.2 L RDW (11.5 - 14.5 %) 16.5 H Plt Count (130 - 400 /CUMM) 214 MPV (7.4 - 10.4 FL) 7.9 Gran % (42.2 - 75.2 %) 84.1 H Lymphocytes % (20.5 - 51.1 %) 10.7 L Monocytes % (1.7 - 9.3 %) 3.9 Eosinophils % (0 - 5 %) 1.0 Basophils % (0.0 - 2.0 %) 0.3 Absolute Granulocytes (1.4 - 6.5 /CUMM) 9.7 H Absolute Lymphocytes (1.2 - 3.4 /CUMM) 1.2 Absolute Monocytes (0.10 - 0.60 /CUMM) 0.4 Absolute Eosinophils (0.0 - 0.7 /CUMM) 0.1 Absolute Basophils (0.0 - 0.2 /CUMM) 0 PUBS MCHC (33.0 - 37.0 G/DL) 31.7 L
[2017-05-03] MEDS ORDERED: LABETALOL HCL200 M1 PO ×2 (11:43→16:39)
--- NOTE | 2017-05-03 11:50 | Patient Discharge Instructions ---
Discharge Instructions General Discharge Information You were seen/treated for: ACUTE KIDNEY INJURY You had these procedures: DIALYSIS Watch for these problems: fever decrease urine output chestpain Special Instructions: PLEASE FOLLOW UP PCP PLEASE FOLLOW UP WITH TAFE TEACHER PLEASE GET A REPEAT KIDNEY FUNCTION TEST IN ONE WEEK Diet Recommended Diet: Diabetic Activity Full Activity/No Limits: Yes Acute Coronary Syndrome Inclusion Criteria At DC or during hospital stay patient has or had the following: ACS DIAGNOSIS No Discharge Core Measures Meds if any: Prescribed or Continued at Discharge Meds if any: NOT Prescribed or Continued at Discharge Congestive Heart Failure Inclusion Criteria At DC or during hospital stay patient has or had the following: CHF DIAGNOSIS No Discharge Core Measures Meds if any: Prescribed or Continued at Discharge Meds if any: NOT Prescribed or Continued at Discharge Cerebrovascular accident Inclusion Criteria At DC or during hospital stay patient has or had the following: CVA/TIA Diagnosis No Discharge Core Measures Meds if any: Prescribed or Continued at Discharge Meds if any: NOT Prescribed or Continued at Discharge Venous thromboembolism Inclusion Criteria VTE Diagnosis No VTE Type NONE VTE Confirmed by (Test) NONE Discharge Core Measures - Per Current guidelines, there needs to be overlap - treatment for the first 5 days of Warfarin therapy. - If discharged on Warfarin prior to 5 days of - overlap therapy, the patient will need to be - assessed for post discharge needs including - *Post discharge parental anticoagulation - *Warfarin and/or parental anticoagulation education - *Follow up date to check INR post discharge At least 5 days overlap therapy as Inpatient No Meds if any: Prescribed or Continued at Discharge Note: Overlap Therapy is Warfarin and Anticoagulant Meds if any: NOT Prescribed or Continued at Discharge
[2017-05-03] MEDS ORDERED: NOVOLOG100 UNIT/2 SC ×3 (13:06→16:39)
--- NOTE | 2017-05-03 13:33 | PN- Att Addend ---
Attending Addendum Attending Brief Note Patient seen and examined this morning. Plan of care discussed with the medical team and the patient. Available lab work and radiology test reports were reviewed. Patient does not report any new symptoms. He denies any chest pain difficulty breathing fever chills nausea vomiting or abdominal pain. He overall appears comfortable. He reports increasing urine output. Assessment and plan * Acute renal failure- most likely ATN . Patient is showing signs of improvement and his dialysis was stopped yesterday. Case discussed with Madhav Valenzuela MD today. * Anion gap metabolic acidosis * Alcohol abuse and alcohol intoxication * Hyperkalemia * Hyponatremia * Hypomagnesemia * History of diabetes * Persistent tachycardia- of unclear etiology; patient is being followed up by cardiology * Positive troponin- more probably is from acute renal failure * Uncontrolled hypertension- improved and stable current medications * Persistent elevated WBC count of unclear etiology without any clear source of infection Plan * Parents to remove as catheter today. Case discussed with Madhav Valenzuela MD * Plan to recheck BP next week * Follow-up the nephrology * Discharge home today Total time spent in preparation for discharge plan, patient education, and CMR preparation was 35 minutes. Exam: General: Patient awake alert oriented without any distress CVS: S1 plus S2 without any murmur or gallops Chest: Few scattered crepitation without any wheeze. There is no respiratory distress. Abdomen: Soft nontender, bowel sound present, no guarding or rebound CARPET BINDER: Awake alert oriented without any focal neuro deficit and follows command appropriately Extremities: No edema; no clubbing or cyanosis noted MADDY cath intact. Laboratory Tests 05/03 0703 Chemistry Sodium (137 - 145 mmol/L) 138 Potassium (3.5 - 5.1 mmol/L) 3.7 Chloride (98 - 107 mmol/L) 101 Carbon Dioxide (22 - 30 mmol/L) 21 L Anion Gap (5 - 16) 16 BUN (9 - 20 mg/dL) 33 H Creatinine (0.7 - 1.2 mg/dL) 4.2 H Estimated GFR (>60 ml/min) 15 L BUN/Creatinine Ratio (7 - 25 %) 7.9 Hematology CBC w Diff NO MAN DIFF REQ WBC (4.8 - 10.8 /CUMM) 9.4 RBC (4.70 - 6.10 /CUMM) 3.66 L Hgb (14.0 - 18.0 G/DL) 8.2 L Hct (42 - 52 %) 25.7 L MCV (80.0 - 94.0 FL) 70.4 L MCH (27.0 - 31.0 PG) 22.5 L RDW (11.5 - 14.5 %) 16.7 H Plt Count (130 - 400 /CUMM) 242 MPV (7.4 - 10.4 FL) 7.7 Gran % (42.2 - 75.2 %) 86.0 H Lymphocytes % (20.5 - 51.1 %) 9.9 L Monocytes % (1.7 - 9.3 %) 3.1 Eosinophils % (0 - 5 %) 0.6 Basophils % (0.0 - 2.0 %) 0.4 Absolute Granulocytes (1.4 - 6.5 /CUMM) 8.1 H Absolute Lymphocytes (1.2 - 3.4 /CUMM) 0.9 L Absolute Monocytes (0.10 - 0.60 /CUMM) 0.3 Absolute Eosinophils (0.0 - 0.7 /CUMM) 0.1 Absolute Basophils (0.0 - 0.2 /CUMM) 0 PUBS MCHC (33.0 - 37.0 G/DL) 31.9 L Vital Signs Date Time Temp Pulse Resp B/P B/P Pulse O2 O2 Flow FiO2 Mean Ox Delivery Rate 05/03 1002 90 120/68 05/03 1002 90 120/68 05/03 0624 97.9 76 21 150/70 97 Room Air 05/02 2241 152/76 05/02 2144 98.0 78 22 152/76 99 Room Air 05/02 1542 98.1 80 20 120/70 100 Intake & Output 05/03 1600 05/03 0800 05/03 0000 Intake Total 650 1300 Output Total 400 975 Balance -400 -325 1300 Intake, IV 10 Intake, Oral 640 1300 Output, Urine 400 975 Patient 229 lb Weight Weight Standing Scale Measurement Method
[2017-05-03 14:02] VITALS: BP 108/60
--- NOTE | 2017-05-03 15:10 | Discharge Summary ---
Visit Information Visit Dates Admission Date: 04/19/17 Discharge Date: 05/03/17 Hospital Course Course Attending Physician: TALI LORENZANA,BRIAN Primary Care Physician: TAMMY LORENZANA,B Consulting Request: 1 Consulting Specialty: Cardiology Consulting Request: 2 Consulting Specialty: Nephrology Hospital Course: This is 46-year-old man with past medical history of hypertension, hyperlipidemia, type 2 diabetes mellitus and alcohol abuse with prev inpt detox with cc of a productive cough with yellowish sputum for several months that had worsened. He also reported vague symptoms of loss of appetite with decreased oral intake, lightheadedness/dizziness, heart palpitations, shortness of breath, and 10+ episodes of loose nonbloody, watery diarrhea the week prior to admission. He was found to be in acute renal failure and an episode of ST- depression on EKG in ED causing ICU admission and workup. Later transferred to floor for stable managment. Vitals on admission: 97.4, 104, 20,119/72 and 100% on room air. Cr 13.6; Anion Gap 34 H, BUN/Creatinine Ratio 6.1 L, Glucose 133 H, Calcium 6.7 L, Phosphorus 10.8 H Creatine Kinase 590 H, Urine Clarity HAZY H,Urine Protein >=300 H Urine WBC 3-5 H, Ur Epithelial Cells RENAL H, Granular Casts MANY H, Urine Hemoglobin LARGE H, Urine Glucose 100 H CXR: No acute cardiopulmonary process. CT ABD & PELVIS W/O IV CONTRAST: 1. No evidence of obstructive uropathy. 2. Otherwise, no acute abnormalities in the abdomen or pelvis. Initial ED EKG: normal intervals, normal p-waves, normal sinus rhythm, rate (104 ), nonspecific ST T wave changes. Second EKG demonstrated sinus tachycardia with T-wave inversions in inferior/ precordial leads and ST-segement depression of distal precordial leads. He was treated for following while in hospital: Acute Renal failure Patient clinincally seems to have acute renal failure and its associated metabolic sequelae secondary to lisinopril, Metformin and decreased oral intake resulting in prerenal azotemia with likely ATN. Note, he had started Lisinopril one week prior to coming to hospital. The patient was admitted to ICU and had to undergo urgent dialysis for creatinine of 13.6. Had a non-tunnelled catheter placed. Per records pateint kidney functions were completely normal in December with Cr of 0.9. First daily dialysis then with dialysis schedule of Tuesday and Tuesday. Transferred to and gradually improved. On D/C Cr 4.2. * Utox negative. * Hep Panel,MELODY, ANCA, C3,C4 ,SPEP negative. * His creatinine kept improving and came down to 4.2 and he did not require dialysis for 4 days in a row * Follow up with PCP-Dr. Ortiz, first appt made by keycase assembler * Follow up with Global Transportation Manager; Dr. Valenzuela * STOP lisinopril * STOP Metformin HTN and Tachycardia: Pt tachy up to 122 during ICU stay. BP was up to 192/50 in ICU. * Continue Labetalol 200mg BID * Continue Amlodipine 10mg daily * STOP Lisinopril * Avoid nephrotoxic medication Insomia: Pt given ambien in hospital for insomnia. Did not prescribe outpt as he did not require it previously. * Consider Rozerem for out pt Electrolyte derangements (Hyperkalemia/Hyponatremia/Hypomagnesemia/ Hypocalcemia /Hyperphosphatemia) Electrolytes improved with dialysis. He was also put on fluid restriction initially 800ml/day but as his renal fnxn spontaneously resolved. Fluid restriction later liberalized to 2000 mL/day considering increase in his urine output. * Monitor BEP on Wednesday 05/09 History of diabetes: Stopped oral hypoglycemics on admission. HBA1c is 8.4 * STOP Metformin * Given SS insulin on DC. Recieved diabetes education * Will need to follow up with PCP for further appropriate residential diabetes management * Monitor glucose at home Aspiration pneumonia (PEN allergic)-resolved Patient remained afebrile throughout hospitalization. His WBC count was elevated. He had persistent productive cough bringing up clear phlegm. No episode of hemoptysis in hospital. CT chest was done on 04/20/17. CT CHEST WO IV CONTRAST Patchy multifocal groundglass opacification. The appearance is nonspecific,but consider infectious or inflammatory etiologies. pt was on clindamycin 600mg q8h for aspiration pneumonia and completed his course. Microcytic anemia * H/H on DC 8.2/25.7 * Required no transfusion Severe Anion gap metabolic acidosis- resolved: most likely secondary to renal failure, alcohol intoxication and metformin induced lactic acidosis? * Anion gap was 34 on admission. Improved after dialysis. anion gap has closed. Positive troponins--demand ischemia and poor renal cl: Trops 0.10 on admission and trended up to 0.11. Peak trop was 0.15. No EKG changes. It's likely demand ischemia and poor renal clearance. Cardiology evaluated and stated no acute cardiac intervention. ECHO was ordered (See below for details). No further cardiac w/up was recommended. 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 Drinks 6-7 glasses of vodka everyday. He was put on CIWA protocol and started on scheduled and IV Ativan as needed per CIWA. Highest CIWA was 8.Inpt treatment finished. Allergies: Coded Allergies: Penicillins (Intermediate, FACIAL SWELLING 04/19/17) Pertinent Lab Results: ECHO: CONCLUSIONS Mild concentric left ventricular hypertrophy. Normal left ventricular ejection fraction visually estimated at >65. No obvious regional wall motion abnormalities.No significant valve abnormalities. Physiologic valvular regurgitation. The left atrium is normal in size. Disposition Summary Disposition Principal Diagnosis: ACUTE KIDNEY FAILURE Additional Diagnosis: HTN Discharge Disposition: home health services Discharge Instructions General Discharge Information Code Status: Full Code Patient's Diet: DIABETIC Patient's Activity: TOLERATED Follow-Up Instructions/Appts: Follow-up with PCP Follow-up with nephrology Get BEP done on 05/09 Medications at Discharge Discharge Medications: Stop taking the following medications: Metformin HCl (Metformin HCl) 1,000 MG TABLET ORAL TWICE DAILY Qty = 60 Hydrochlorothiazide (Hydrochlorothiazide) 25 MG TABLET ORAL DAILY Qty = 30 Lisinopril (Lisinopril) 20 MG TABLET ORAL DAILY Qty = 30 Continue taking these medications: Pantoprazole Sodium (Pantoprazole Sodium) 40 MG TABLET.DR 1 Tablet ORAL DAILY Qty = 30 Comments: Last Taken: 05/03/17 Time: 600AM Rosuvastatin Calcium (Crestor) 10 MG TABLET 1 Tablet ORAL DAILY Qty = 30 Comments: Last Taken: 05/03/17 Time: 500PM Amlodipine Besylate (Amlodipine Besylate) 10 MG TABLET 1 Tablet ORAL DAILY Qty = 30 Comments: Last Taken: 05/03/17 Time: 1000AM Start taking the following new medications: Labetalol HCl (Labetalol HCl) 200 MG TABLET 1 Tablet ORAL TWICE DAILY Qty = 60 No Refills Insulin Aspart (Novolog) 100 UNIT/ML VIAL 0 Inject into fatty tissue 3 TIMES DAILY BEFORE MEALS Qty = 1 No Refills Comments: BLOOD SUGAR less than 80 mg/dl Initiate Hypoglycemia protocol 80-150 mg/dl No Change 151-200 mg/dl Take 1 unit 201-250 mg/dl Take 2 units 251-300 mg/dl Take 3 units 301-350 mg/dl Take 4 units 351-400 mg/dl Take 6 units more than 400 mg/dl Take 8 units and call your PCP Copies To: TAMMY LORENZANA,B
== END 2017-05-03 17:20 | disposition home health service (06) | DRG 469 ==
LOC: ERH 13:56 → ERHI 16:38 → 2NA 16:38 → CRI 16:38 → ENRESERV 20:13 → ENTRNSPT 21:23 → CRI 21:47 → CMPTRNSPT 21:56 → 2NA 04-22 17:16 → ENPENDDIS 05-03 17:00 → 2NA 05-03 17:20
PROVIDERS: Internal Medicine; Internal Medicine Interventional Cardiology; Internal Medicine Nephrology; Physician Assistant Medical; Student in an Organized Health Care Education/Training Program; ADMIT Internal Medicine
PROC: 02HV33Z Insertion of Infusion Device into Superior Vena Cava, Percutaneous Approach (ICD-10-PCS; principal; 2017-04-20)
PROC: 5A1D60Z (ICD-10-PCS; 2017-04-20)
DX: N17.0 Acute kidney failure with tubular necrosis (principal); J69.0 Pneumonitis due to inhalation of food and vomit; E87.3 Alkalosis; E87.1 Hypo-osmolality and hyponatremia; E87.2 Acidosis; E11.22 Type 2 diabetes mellitus with diabetic chronic kidney disease; I24.8 Other forms of acute ischemic heart disease; E87.5 Hyperkalemia; E83.39 Other disorders of phosphorus metabolism; E83.42 Hypomagnesemia; E83.51 Hypocalcemia; E78.5 Hyperlipidemia, unspecified; E66.9 Obesity, unspecified; Z68.36 Body mass index [BMI] 36.0-36.9, adult; F10.20 Alcohol dependence, uncomplicated; D50.9 Iron deficiency anemia, unspecified; Z79.84 Long term (current) use of oral hypoglycemic drugs; I16.0 Hypertensive urgency; I12.9 Hypertensive chronic kidney disease with stage 1 through stage 4 chronic kidney disease, or unspecified chronic kidney disease; N18.9 Chronic kidney disease, unspecified; T38.3X5A Adverse effect of insulin and oral hypoglycemic [antidiabetic] drugs, initial encounter; R00.0 Tachycardia, unspecified; G47.00 Insomnia, unspecified; Z87.891 Personal history of nicotine dependence
CPT/HCPCS: 2NASP; 84133; 84300; 86021; 86160; CCU; 36415; 74176; 77001; 80307; 81001; 82436; 82570; 84165; 87040; 87070; 87086; 93005; 93010; 93306; 96360; 96361; 97110-GO; 97116-GO; 97161-GP; 97530-GO; 99291; C1752; C1769; J0610; J0636; J0885; J1644; J2405; J3490